=== PATIENT | male | born 1945 | race Two or more races ===

== ENCOUNTER 2020-05-11 09:34 | Outpatient (REF) | payer MEDICARE, SELFPAY ==
[2020-05-11 10:48] LABS: Basophils Percent Auto 0.6 % (0-2); Eosinophils Absolute Auto 0.1 X10*3/uL (0.0-0.4); Eosinophils Percent Auto 1.3 % (0-4); Hematocrit 40.2 % (42-52); Imm Gran Abs Auto 0.02 X10*3/uL (0.00-0.03); Imm Gran Pct Auto 0.3 % (0.0-0.4); Lymphocytes Percent Auto 28.1 % (20-40); MANUAL DIFF FLAG NO; Mean Corpuscular HGB Conc 32.3 g/dl (31.0-36.0); Mean Corpuscular Hemoglobin 28.3 pg (27.0-33.0); Mean Corpuscular Volume 87.4 fL (80-98); Mean Platelet Volume 12.1 fL (9.4-12.4); Monocytes Absolute Auto 0.5 X10*3/uL (0.1-1.2); Monocytes Percent Auto 6.7 % (2-11); Neutrophils Absolute Auto 4.5 X10*3/uL (2.0-8.3); Platelet Count 221 X10*3/uL (160-400); Red Cell Distribution Width 13.5 % (11.0-16.0); White Blood Count 7.1 X10*3/uL (4.8-10.8)
[2020-05-11 11:18] LABS: Alanine Aminotransferase 19 U/L (0-40); Albumin Level 4.3 g/dL (3.5-5.0); Alkaline Phosphatase 89 U/L (39-117); Anion Gap 13 (12-20); Aspartate Amino Transferase 16 U/L (5-37); Bilirubin Total 0.8 mg/dL (0.0-1.0); Blood Urea Nitrogen 19 mg/dL (9-16); Carbon Dioxide 26 mmol/L (22-29); Chloride 109 mmol/L (96-108); Cholesterol 123 mg/dL; Estimated Glomerular Filt Rate > 60; Glucose Fasting 108 mg/dL (60-99); HDL Cholesterol 39 mg/dL; LDL Cholesterol Calculated 73 mg/dl; Potassium 4.8 mmol/L (3.3-5.1); Sodium 143 mmol/L (135-145); Total Protein 6.8 g/dL (6.5-8.0); Triglycerides 55 mg/dL
[2020-05-11 11:31] LABS: Thyroid Stimulating Hormone 1.36 uIU/mL (0.32-4.0)
[2020-05-11 11:36] LABS: Estimated Average Glucose 134 mg/dL; Hemoglobin A1c % 6.3 %
== END 2020-05-11 09:35 | disposition home or self-care (01) ==
LOC: HO.LAB 09:34
PROVIDERS: PCP Internal Medicine; Visit Provider Internal Medicine
DX: Z00.00 Encounter for general adult medical examination without abnormal findings (principal); E11.9 Type 2 diabetes mellitus without complications; E03.9 Hypothyroidism, unspecified
CPT/HCPCS: 36415; 80053; 80061; 83036; 84443; 85025

== ENCOUNTER 2021-02-11 09:51 | Outpatient (REF) | payer MEDICARE, SELFPAY ==
[2021-02-11 11:01] LABS: Estimated Average Glucose 143 mg/dL; Hemoglobin A1c % 6.6 %; Total Hemoglobin (HGBA1C) 3398.5007 umol/L
[2021-02-11 11:10] LABS: Cholesterol 152 mg/dL; Glucose Fasting 120 mg/dL (60-99); HDL Cholesterol 37 mg/dL; LDL Cholesterol Calculated 89 mg/dl; Triglycerides 134 mg/dL
== END 2021-02-11 09:52 | disposition home or self-care (01) ==
LOC: HO.LAB 09:51
PROVIDERS: PCP Internal Medicine; Visit Provider Internal Medicine
DX: R73.9 Hyperglycemia, unspecified (principal); E11.9 Type 2 diabetes mellitus without complications
CPT/HCPCS: 36415; 80061; 82947; 83036

== ENCOUNTER 2022-03-07 10:15 | Outpatient (REF) | payer MEDICARE, SELFPAY ==
[2022-03-07 11:09] LABS: Estimated Average Glucose 134 mg/dL; Hemoglobin A1c % 6.3 %
[2022-03-07 11:24] LABS: Cholesterol 134 mg/dL; Glucose Fasting 113 mg/dL (60-99); HDL Cholesterol 38 mg/dL; LDL Cholesterol Calculated 81 mg/dl; Triglycerides 75 mg/dL
== END 2022-03-07 10:16 | disposition home or self-care (01) ==
LOC: HO.LAB 10:15
PROVIDERS: PCP Internal Medicine; Visit Provider Internal Medicine
DX: E78.5 Hyperlipidemia, unspecified (principal); E11.65 Type 2 diabetes mellitus with hyperglycemia
CPT/HCPCS: 36415; 80061; 82947; 83036

== ENCOUNTER 2022-06-12 13:20 | Outpatient (REF) | payer MEDICARE, SELFPAY ==
--- NOTE | 2022-06-12 09:00 | EMG_ITS ---
Right median and ulnar motor and sensory studies were obtained. Right radial and sensory study was obtained, and paraspinal muscles were tested with a needle. IMPRESSION: 1. 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 2. Moderate right ulnar neuropathy across cubital tunnel. MD FRANSISCO Barreto/JESUS MANUEL / [phone]
== END 2022-06-12 13:21 | disposition home or self-care (01) ==
LOC: HO.NEURO 13:20
PROVIDERS: PCP Internal Medicine; Visit Provider Internal Medicine
DX: G56.01 Carpal tunnel syndrome, right upper limb (principal)
CPT/HCPCS: 95886; 95909

== ENCOUNTER → 2022-08-12 14:00 | Outpatient (BNVA) | payer MEDICARE, SELFPAY | PROVIDERS: PCP Internal Medicine; Visit Provider Orthopaedic Surgery | DX: G56.01 Carpal tunnel syndrome, right upper limb (principal) | CPT/HCPCS: 99202 ==

== ENCOUNTER → 2022-08-19 09:10 | Outpatient (BNVA) | payer MEDICARE, SELFPAY | PROVIDERS: PCP Internal Medicine; Visit Provider Dietitian, Registered | DX: E11.9 Type 2 diabetes mellitus without complications (principal) | CPT/HCPCS: 97802 ==

== ENCOUNTER 2022-08-22 09:20 | Outpatient (REF) | payer MEDICARE, SELFPAY ==
[2022-08-22 09:39] LABS: MANUAL DIFF FLAG NO
[2022-08-22 09:51] LABS: Basophils Percent Auto 0.6 % (0-2); Eosinophils Absolute Auto 0.1 X10*3/uL (0.0-0.4); Eosinophils Percent Auto 1.2 % (0-4); Hematocrit 42.4 % (42.0-52.0); Hemoglobin 13.8 g/dl (14.0-18.0); Imm Gran Abs Auto 0.01 X10*3/uL (0.00-0.03); Imm Gran Pct Auto 0.1 % (0.0-0.4); Lymphocytes Absolute Auto 1.8 X10*3/uL (1.2-4.9); Lymphocytes Percent Auto 26.7 % (20-40); Mean Corpuscular HGB Conc 32.5 g/dl (31.0-36.0); Mean Platelet Volume 11.4 fL (9.4-12.4); Monocytes Absolute Auto 0.5 X10*3/uL (0.1-1.2); Monocytes Percent Auto 7.8 % (2-11); Neutrophils Absolute Auto 4.2 x10*3/uL (2.0-8.3); Neutrophils Percent Auto 63.6 % (45-73); Platelet Count 213 X10*3/uL (160-400); Red Blood Count 4.93 X10*6/uL (4.60-5.80); White Blood Count 6.7 X10*3/uL (4.8-10.8)
[2022-08-22 10:20] LABS: Alanine Aminotransferase 21 U/L (0-40); Albumin Level 4.2 g/dL (3.5-5.0); Alkaline Phosphatase 80 U/L (39-117); Anion Gap 12 (12-20); Aspartate Amino Transferase 16 U/L (5-37); Bilirubin Total 0.9 mg/dL (0.0-1.0); Blood Urea Nitrogen 14 mg/dL (9-16); Calcium 9.3 mg/dL (8.4-10.2); Carbon Dioxide 26 mmol/L (22-29); Chloride 108 mmol/L (96-108); Cholesterol 136 mg/dL; Estimated Glomerular Filt Rate > 60; Glucose Fasting 129 mg/dL (60-99); HDL Cholesterol 36 mg/dL; LDL Cholesterol Calculated 80 mg/dl; Potassium 4.7 mmol/L (3.3-5.1); Sodium 141 mmol/L (135-145); Total Protein 6.7 g/dL (6.5-8.0); Triglycerides 103 mg/dL
== END 2022-08-22 09:21 | disposition home or self-care (01) ==
LOC: HO.LAB 09:20
PROVIDERS: PCP Internal Medicine; Visit Provider Internal Medicine
DX: Z13.0 Encounter for screening for diseases of the blood and blood-forming organs and certain disorders involving the immune mechanism (principal); E78.5 Hyperlipidemia, unspecified; I10 Essential (primary) hypertension
CPT/HCPCS: 36415; 80053; 80061; 85025

== ENCOUNTER 2022-08-28 10:08 | Day surgery (SDC) | payer MEDICARE, SELFPAY ==
--- NOTE | 2022-08-28 09:59 | W.PM.OPN ---
Operative Note Operative Note Date of Service: 08/28/22 Narrative: Preop diagnosis: 1. Right Carpal tunnel syndrome Postop diagnosis: same Procedure: 1. Right Carpal tunnel release Surgeon: Shruthi Cervantes MD Anesthesia: local block using 1% lidocaine with epinephrine Findings: Thickened transverse carpal ligament. EBL: Less than 5 mL Specimens: None Complications: None Disposition: Brought to recovery room in stable condition Plan: Follow-up for 10-14 days for wound check and suture removal Indications: The patient is 77 years old, with right carpal tunnel syndrome that has been unresponsive to nonoperative management. The risks and benefits of operative treatment including but not limited to risk of damage to blood vessels, nerves, tendons, infection, persistent pain, persistent symptoms, or possible need for additional surgery were discussed with the patient and the patient wishes to proceed with surgery. Procedure: Once consent was obtained a local block was performed using a combination of 1% lidocaine with epinephrine. The patient was then brought back to the operating suite and placed on the operative table in supine position. The right upper extremity was prepped and draped in a standard surgical fashion. Once assured that we had a good block, a 2.0 cm longitudinal incision was made centered over the carpal tunnel. The incision was made through the skin to the subcutaneous tissues using a #15 blade. Dissection was made down to the level of the transverse carpal ligament with care being taken to protect the palmar cutaneous nerve. Once the transverse carpal ligament was clearly visualized, a longitudinal incision was made in the transverse carpal ligament 1st using a #15 blade, then using tenotomy scissors under direct visualization. Care was taken to look for and protect the motor branch of the median nerve when seen in this area. Once satisfied with our carpal tunnel release the wound was copiously irrigated with normal saline and hemostasis was obtained with a brief period of local pressure. The skin edges were reapproximated with some 5.0 nylon suture material and a sterile dressing was applied. The patient appears to have tolerated the procedure well and with no complications. All digits were well vascularized at the conclusion of the case.
[2022-08-28 10:32] VITALS: BMI 31.7
[2022-08-28 10:39] VITALS: BP 149/61; PULSE 65; RESP 18; TEMP 36.7; O2SAT 96
--- NOTE | 2022-08-28 13:21 | MHC.SHP ---
Pre-Procedural Eval Section A Date of Service: 08/28/22 The patient is an INPATIENT: No Changes since office visit: No Cold of Flu in the past 2 weeks, No New Medical Problems, No Changes in Medication and No Patient answered all questions The History & Physical has been completed within 30 days and I have reviewed it.: Yes Section B Chief Complaint: Carpal tunnel syndrome, right upper limb Allergies: Allergies Allergy/AdvReac Type Severity Reaction Status Date / Time No Known Allergies Allergy Verified 05/09/22 13:53 Plan I have reviewed the history and physical and performed a pertinent physical examination on my patient. No changes have occurred unless specified. Time Spent With Patient Time: Total time managing care of this patient today ____ minutes.
== END 2022-08-28 14:01 | disposition home or self-care (01) ==
PROVIDERS: PCP Internal Medicine; Visit Provider Orthopaedic Surgery
PROC: (CPT 64721; principal; 2022-08-28 11:40)
DX: G56.01 Carpal tunnel syndrome, right upper limb (principal); R20.0 Anesthesia of skin; R20.2 Paresthesia of skin; E11.9 Type 2 diabetes mellitus without complications; E78.5 Hyperlipidemia, unspecified; I10 Essential (primary) hypertension
CPT/HCPCS: 64721; J0171

== ENCOUNTER → 2022-09-12 08:49 | Outpatient (BNVA) | payer MEDICARE, SELFPAY | PROVIDERS: PCP Internal Medicine; Visit Provider Physician Assistant | DX: Z48.811 Encounter for surgical aftercare following surgery on the nervous system (principal) | CPT/HCPCS: 99212 ==

== ENCOUNTER 2023-01-14 08:41 | Outpatient (AMB) | payer MEDICARE, SELFPAY ==
--- NOTE | 2023-01-14 08:43 | MHC.OFFVIS ---
Intake Vital Signs 01/14/23 08:53 Height 6 ft 1 in Weight 244 lb BMI 32.2 Intake Visit Reasons: OV-R CTR 08/28/22 AR-Follow up Intake Note: Yemi 77 yr old resents today for his S/P Right CTR 08/28/22 AR. States he continues to have some numbness and is also waking up with his left hand numb. EMG done only in right hand. Allergies No Known Allergies Allergy (Verified 01/14/23 08:53) HPI OV-R CTR 08/28/22 AR-Follow up HPI Details Yemi is a 77 year old right hand dominant man who presents with complaints of left hand numbness. He is S/P right carpal tunnel release, DOS: 08/28/22. He complains of numbness in the median nerve distribution of his left hand. Symptoms began ~2 weeks ago and occurring primarily at night and first thing in the mornings. He is worried if he is developing carpal tunnel in this hand At his initial appointment with me on 08/12/22 he complained only of right hand numbness, and a NCS, ordered by his PCP, was performed only on his right side showing both carpal & cubital tunnel syndrome. In regards to his right hand he says he still has numbness in the median nerve distribution, but he says it feels better overall , with no pain and good resolution of his nighttime symptoms. He had dense numbness prior to surgery as well as thenar atrophy. 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 Father No problems noted. Social History Housing: House Alcohol intake: current Alcohol intake frequency: a few times a week Patient Tobacco Use Status: Never used Tobacco e-Cigarette/Vaping Use: Never Used Second Hand Smoke Exposure: No service: No Current occupational status: employed and retired Cognitive needs: No Hearing needs: No Vision needs: No Review of Systems Const All systems reviewed & are unremarkable except as noted in HPI and below Physical Exam Vital Signs: BMI result Body Mass Index 32.2 Const General: cooperative, healthy appearing and no acute distress Orientation/consciousness: oriented to person and oriented to place HEENT Head: Yes normocephalic and Yes atraumatic Eyes EOM: EOMs intact bilaterally Resp Effort & Inspection: normal respiratory effort and able to speak in complete sentences Cardio Jugular venous distension: no JVD Skin General skin exam: turgor normal Rashes: no rashes Neuro General: oriented to person and oriented to place Extrem Other: Evaluation of Left Upper Extremity: The patient is alert, oriented, and in no acute distress Neuro: Median, Ulnar, Radial nerves motor and sensory intact and sensation is normal to the tips of all digits of the left hand No thenar or intrinsic wasting Good APB muscle belly firing and good finger cross Concerning the right side: he still has dense numbness in the median nerve destribution as well as thenar atrophy, though he says the sensation is somehow little better since surgery. Vascular: Cap refill brisk ROM: He can make a fist and extend all his digits No locking or catching Nerve conduction study: Impression: 1. 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 Moderate right ulnar neuropathy across cubital tunnel. Dr. Richard DOS 06/12/2022 Psych Appearance: grossly normal Affect: normal affect Attitude: cooperative Assessment & Plan Assessment & Plan (1) Carpal tunnel syndrome: Code(s): G56.00 - Carpal tunnel syndrome, unspecified upper limb (2) Cubital tunnel syndrome on right: Code(s): G56.21 - Lesion of ulnar nerve, right upper limb (3) Numbness and tingling in left hand: Code(s): R20.0 - Anesthesia of skin; R20.2 - Paresthesia of skin (4) Diabetes mellitus: Code(s): E11.9 - Type 2 diabetes mellitus without complications Plan Assessment and plan: 1. Left hand numbness In the median nerve distribution Symptoms intermittent, but daily, primarily at night I ordered a NCS to assess for possible carpal tunnel syndrome He will follow up when completed for review 2. Right carpal tunnel syndrome, S/P release DOS: 08/28/22 Pre-operatively with dense numbness and thenar atrophy Now with dense numbness, slightly improved, with good resolution of his nighttime symptoms 3. Right cubital tunnel syndrome, moderate Patient denies having any symptoms of numbness and tingling in his ulnar nerve distribution Good finger cross no intrinsic wasting Scribed for Shruthi Cervantes MD by Da Pierre, medical manager, on 01/14/23 at 9:15 AM, EST. Orders: Orders NE nerve conduction velocity Today R20.0 - Anesthesia of skin, R20.2 - Paresthesia of skin Coding Level of Care Code Est Pt Level 3 (18973) Diagnoses Carpal tunnel syndrome G56.00 Cubital tunnel syndrome on right G56.21 Numbness and tingling in left hand R20.0; R20.2 Diabetes mellitus E11.9
[2023-01-14 08:53] VITALS: BMI 32.2
== END 2023-01-14 09:17 | disposition home or self-care (01) ==
PROVIDERS: PCP Internal Medicine; Visit Provider Orthopaedic Surgery
DX: G56.00 Carpal tunnel syndrome, unspecified upper limb (principal); G56.21 Lesion of ulnar nerve, right upper limb; R20.0 Anesthesia of skin; R20.2 Paresthesia of skin
CPT/HCPCS: 99213

== ENCOUNTER → 2023-01-14 08:41 | Outpatient (BNVA) | payer MEDICARE, SELFPAY | PROVIDERS: PCP Internal Medicine; Visit Provider Orthopaedic Surgery | DX: G56.00 Carpal tunnel syndrome, unspecified upper limb (principal); G56.21 Lesion of ulnar nerve, right upper limb; R20.0 Anesthesia of skin; R20.2 Paresthesia of skin; E11.9 Type 2 diabetes mellitus without complications | CPT/HCPCS: 99212 ==

== ENCOUNTER 2023-03-13 12:58 | Outpatient (AMB) | payer MEDICARE, SELFPAY ==
[2023-03-13 13:00] VITALS: BP 140/62; PULSE 64; O2SAT 99; BMI 32.2
--- NOTE | 2023-03-13 13:00 | MHC.PC.OV ---
Vital Signs 03/13/23 13:00 Height 6 ft 1 in Weight 244 lb BMI 32.2 BP 140/62 H Blood Pressure Location Lt brachial Position Sitting Pulse 64 Pulse Source Pulse Oximeter Pulse Oximetry (%) 99 Oxygen Delivery Method Room Air Intake Visit Reasons: physical Career Development Specialist Required: No Drafting Engineer: Not Required per policy Accompanied by: Self / Same As Patient Allergies No Known Allergies Allergy (Verified 03/13/23 13:01) Medication List - Last Reconciled 03/13/23 by Herbert Cabello MD alcohol swabs 0 pad topical DAILY aspirin (Adult Low Dose Aspirin) 81 mg PO DAILY atorvastatin 80 mg PO DAILY blood sugar diagnostic ([employer] Verio test strips) Use to check blood sugars once a day blood-glucose meter ([employer] Verio Meter) Use to check blood sugars once daily lancets ([employer] Delica Lancets) Use to check blood sugars once a day lisinopril 40 mg PO DAILY metformin ER 500 mg PO QPM oxycodone 5 mg PO Q6H PRN Tobacco use date assessed: 05/09/22 Fall risk assessment: No Falls in past year Last assessed Fall Risk: 03/13/23 Dental Screening Dental Screen Date: 03/13/23 Did you have a dental visit in the last 12 months?: No Did you have a dental problem in the last 6 months where you did not have access to dental care?: No Was dental information given to patient?: Patient has dentist HPI physical HPI Details DM HTN and hyperlip; stable on rx; due for labs PFSH Medical History Diabetes mellitus Hyperlipidemia Hypertension Surgical History History of ankle surgery Family History Mother No problems noted. Father No problems noted. Social History Housing: House Alcohol intake: current Alcohol intake frequency: a few times a week Patient Tobacco Use Status: Never used Tobacco e-Cigarette/Vaping Use: Never Used Second Hand Smoke Exposure: No service: No Current occupational status: employed and retired Cognitive needs: No Hearing needs: No Vision needs: Yes Questionnaire Thrive Questionnaire Date Thrive assessed: 05/09/22 MUKESH-7 AMB Questionnaire MUKESH-7 Date MUKESH - 7 assessed: 05/09/22 Source: Developed by Drs. Cem Garg, Brionna Garcia, Parish Rowe and colleagues, with an educational rah from [employer]. Review of Systems Const Denies chills, Denies fatigue, Denies headache(s) and Denies weight loss Eyes Denies change in vision, Denies diplopia and Denies eye pain ENT Denies vertigo, Denies dizziness, Denies headache(s) and Denies nasal discharge Card Denies chest pain, Denies rapid heart rate and Denies dyspnea on exertion Resp Denies chest congestion, Denies cough, Denies pain with cough and Denies dyspnea on exertion GI Denies abdominal pain, Denies hematochezia and Denies change in bowel habits Musc Denies myalgias, Denies arthralgias and Denies joint swelling Skin/Breast Denies lesions and Denies unusual bruising Neuro Denies vertigo, Denies dizziness, Denies headache(s) and Denies focal weakness Endo Denies fatigue Physical exam (Primary Care) Vital Signs: Last Vital Signs Pulse 64 03/13/23 13:00 BP 140/62 H 03/13/23 13:00 Pulse Ox 99 03/13/23 13:00 Oxygen Delivery Method Room Air 03/13/23 13:00 BMI result Body Mass Index 32.2 Tobacco/Smoking Status: Tobacco use Status Tobacco use date assessed 05/09/22 03/13/23 13:04 Patient Tobacco Use Status Never used Tobacco 03/13/23 13:04 e-Cigarette/Vaping Use Never Used 03/13/23 13:04 Thrive Assessment: Date of Thrive Assessment Date Thrive assessed 05/09/22 03/13/23 13:04 Advance Care Planning discussion: On file, no changes Forms completed: Health Care Proxy Const General: cooperative, healthy appearing and no acute distress Orientation/consciousness: oriented to person, oriented to place and oriented to time [facility] Head: Yes normal to inspection, Yes normocephalic and Yes atraumatic Mouth: Normal oral and palatal mucosa present and tongue normal Throat: Yes posterior oropharynx normal and Yes uvula midline Eyes General: appearance normal, both eyes and all related structures Neck Neck: Yes normal visual inspection, Yes full ROM and Yes no lymphadenopathy Thyroid: Thyroid normal Carotids: normal carotid upstroke Chest Chest palpation & inspection: normal inspection of the chest Resp Effort & Inspection: normal respiratory effort and able to speak in complete sentences Auscultation: clear to auscultation bilaterally Cardio Jugular venous distension: no JVD Palpation: normal PMI Rate: regular rate Rhythm: regular rhythm Heart sounds: S1 normal heart sound present and S2 normal heart sound present GI Inspection: Yes normal to inspection Palpation (GI): Soft to palpation and No hepatosplenomegaly present Auscultation: normal bowel sounds General: Yes no CVA tenderness Back/Spine/Pelvis Back: no CVA tenderness Skin General skin exam: no rashes or lesions noted Neuro General: oriented to person, oriented to place and oriented to time Extrem General: Yes normal to inspection and Yes full ROM Results AMB Hemoglobin A1c AMB Hemoglobin A1c 6.7 % Last Edit by FLOYD Beltran on 03/13/23 13:16 Results Reviewed Results Reviewed: Laboratory Last Values Hgb A1c (Clinic) 6.7 % (4.0-6.0) H 03/13/23 13:14 Assessment and Plan Assessment & Plan (1) Diabetes mellitus with coincident hypertension: Code(s): E11.9 - Type 2 diabetes mellitus without complications; I10 - Essential (primary) hypertension Plan: stable; same rx; do labs (2) Physical exam: Code(s): Z00.00 - Encounter for general adult medical examination without abnormal findings Plan: stable (3) Hyperlipidemia: Code(s): E78.5 - Hyperlipidemia, unspecified Plan: stable; same rx (4) Hypertension: Code(s): I10 - Essential (primary) hypertension Plan: stable; same rx Orders: Orders AMB Hemoglobin A1c Today E11.9 - Type 2 diabetes mellitus without complications, I10 - Essential (primary) hypertension Coding Level of Care Code Est Pt Prev Care >65y(21422) Diagnoses Diabetes mellitus with coincident hypertension E11.9; I10 Physical exam Z00.00 Hyperlipidemia E78.5 Hypertension I10 Additional Codes Vital Signs *Quality* - Advance Care Planning discussion: On file, no changes ([id number])
== END 2023-03-13 13:25 | disposition home or self-care (01) ==
PROVIDERS: PCP Internal Medicine; Visit Provider Internal Medicine
DX: E11.9 Type 2 diabetes mellitus without complications (principal); I10 Essential (primary) hypertension; Z00.00 Encounter for general adult medical examination without abnormal findings; E78.5 Hyperlipidemia, unspecified
CPT/HCPCS: 1123F; 83036; 99397

== ENCOUNTER 2023-05-01 10:25 | Outpatient (REF) | payer MEDICARE, SELFPAY ==
--- NOTE | 2023-05-01 10:28 | EMG_ITS ---
Chief complaint: Numbness left digits 1 and 2 only when waking up in the morning s/p right CTR, 08/28/22 Reason for referral: Evaluate for Carpal Tunnel Syndrome Referred by: Dr. Cervantes Procedure done: Left upper extremity NCS/EMG Precautions and/or limitations: None The limb temperature was monitored continuously and remained between 32-36 degrees C during the performance of the NCS. Nerve Conduction Studies Anti Sensory Summary Table ?Stim Site NR Onset (ms) Norm Onset (ms) Peak (ms) Norm Peak (ms) O-P Amp (?V) Norm O-P Amp Site1 Site2 Delta-0 (ms) Dist (cm) Rehan (m/s) Norm Rehan (m/s) Left Median Anti Sensory (2nd Digit) Wrist ? 3.3 4.1 <3.6 12.4 >10 Wrist 2nd Digit 3.3 14.0 42 Left Radial Anti Sensory (Thumb) Forearm ? 2.0 2.6 <3.1 1.3 Forearm Thumb 2.0 0.0 Left Ulnar Anti Sensory (5th Digit) Wrist ? 2.7 3.3 <3.7 5.3 >15.0 Wrist 5th Digit 2.7 14.0 52 Motor Summary Table ?Stim Site NR Onset (ms) Norm Onset (ms) O-P Amp (mV) Norm O-P Amp iAmp (mV) Amp (1st) (%) Site1 Site2 Delta-0 (ms) Dist (cm) Rehan (m/s) Norm Rehan (m/s) Left Median Motor (Abd Poll Brev) Wrist ? 5.0 <3.9 3.9 >4.5 4.5 100.0 Elbow Wrist 4.6 23.0 50 >45 Elbow ? 9.6 3.5 4.5 89.7 Left Ulnar Motor (Abd Dig Minimi) Wrist ? 2.9 <3.0 7.5 >5 10.3 100.0 B Elbow Wrist 4.4 21.0 48 >45 B Elbow ? 7.3 6.7 9.6 89.3 A Elbow B Elbow 1.8 10.0 56 >45 A Elbow ? 9.1 6.1 9.0 81.3 EMG ?Side Muscle Nerve Root Ins Act Fibs Psw Amp Dur Poly Recrt Int Pat Comment Left 1stDorInt Ulnar C8-T1 Nml Nml Nml Nml Nml 0 Nml Complete Left FlexCarRad Median C6-7 Nml Nml Nml Nml Nml 0 Nml Complete Left Biceps Musculocut C5-6 Nml Nml Nml Nml Nml 0 Nml Complete Left Triceps Radial C6-7-8 Nml Nml Nml Nml Nml 0 Nml Complete Left Deltoid Axillary C5-6 Nml Nml Nml Nml Nml 0 Nml Complete FINDINGS: Left median motor nerve showed prolonged distal latency, small amplitude and normal conduction velocity. Left median sensory nerve showed prolonged peak latency. All other nerves tested were within normal. Concentric needle EMG was performed in selected muscles of the left upper extremity. Study did not reveal signs of electric abnormalities as shown in the table below. IMPRESSION: 1. This is an abnormal study. 2. There is electrodiagnostic evidence for left moderate-severe median neuropathy at the wrist, consistent with carpal tunnel syndrome. 3. There is no electrodiagnostic evidence for ulnar neuropathy, brachial plexopathy, or cervical radiculopathy. Thank you for your kind referral. Nubia Mancuso MD, BERTHA Board Certified, [place] [employer] and Rehabilitation (ABPMR) Board Certified, [place] Board of Electrodiagnostic Medicine (ABEM) CODIN [id number] MTDD
== END 2023-05-01 10:26 | disposition home or self-care (01) ==
LOC: HO.NEURO 10:25
PROVIDERS: PCP Internal Medicine; Visit Provider Orthopaedic Surgery
DX: R20.0 Anesthesia of skin (principal); R20.2 Paresthesia of skin
CPT/HCPCS: 95886; 95909

== ENCOUNTER → 2023-05-01 10:28 | Outpatient (BNV) | payer MEDICARE, SELFPAY | PROVIDERS: PCP Internal Medicine; Visit Provider Physical Medicine & Rehabilitation | DX: G56.02 Carpal tunnel syndrome, left upper limb (principal); G56.12 Other lesions of median nerve, left upper limb | CPT/HCPCS: 95886; 95909 ==

== ENCOUNTER 2023-09-11 08:59 | Outpatient (REF) | payer MEDICARE, SELFPAY ==
[2023-09-11 09:50] LABS: Estimated Average Glucose 140 mg/dL; Hemoglobin A1c % 6.5 % (<6.0)
[2023-09-11 10:07] LABS: Glucose Fasting 123 mg/dL (60-99)
== END 2023-09-11 09:00 | disposition home or self-care (01) ==
LOC: HO.LAB 08:59
PROVIDERS: PCP Internal Medicine; Visit Provider Internal Medicine
DX: R73.9 Hyperglycemia, unspecified (principal)
CPT/HCPCS: 36415; 82947; 83036

== ENCOUNTER 2023-09-18 10:39 | Outpatient (AMB) | payer MEDICARE, SELFPAY ==
[2023-09-18 10:40] VITALS: BP 130/72; PULSE 74; O2SAT 96; BMI 31.8
--- NOTE | 2023-09-18 10:40 | MHC.PC.OV ---
Vital Signs 09/18/23 10:40 Height 6 ft 1 in Weight 241 lb BMI 31.8 BP 130/72 Blood Pressure Location Lt brachial Position Sitting Pulse 74 Pulse Source Pulse Oximeter Pulse Oximetry (%) 96 Oxygen Delivery Method Room Air Intake Visit Reasons: 6mth f/u - needs urine microalbumin/creat ration Quarantine Inspector Required: No Allergies No Known Allergies Allergy (Verified 09/18/23 10:41) Medication List - Last Reconciled 09/21/23 by Herbert Cabello MD alcohol swabs 0 pad topical DAILY aspirin (Adult Low Dose Aspirin) 81 mg PO DAILY atorvastatin 80 mg PO DAILY blood sugar diagnostic ([employer] Verio test strips) Use to check blood sugars once a day blood-glucose meter ([employer] Verio Meter) Use to check blood sugars once daily lancets ([employer] Delica Lancets) Use to check blood sugars once a day lisinopril 40 mg PO DAILY metformin ER 500 mg PO QPM oxycodone 5 mg PO Q6H PRN Tobacco use date assessed: 09/18/23 Fall risk assessment: No Falls in past year Last assessed Fall Risk: 09/18/23 Dental Screening Dental Screen Date: 09/18/23 HPI 6mth f/u - needs urine microalbumin/creat ration HPI Details DM hypertension and hyperlipidemia; stable; due for labs [facility] Medical History Diabetes mellitus Hyperlipidemia Hypertension Surgical History History of ankle surgery Family History Mother No problems noted. Father No problems noted. Social History Housing: House Alcohol intake: current Alcohol intake frequency: a few times a week Patient Tobacco Use Status: Never used Tobacco e-Cigarette/Vaping Use: Never Used Second Hand Smoke Exposure: No service: No Current occupational status: employed and retired Cognitive needs: No Hearing needs: No Vision needs: Yes Questionnaire Thrive Questionnaire Date Thrive assessed: 05/09/22 AUDIT C Alcohol Use Questionnaire (AUDIT-C) 1. How often do you have a drink containing alcohol?: 2-3 times a week 2. How many drinks containing alcohol do you have on a typical day when you are drinking?: 1 or 2 3. How often do you have six or more drinks on one occasion?: Never Total Score: 3 Score Reviewed/Action Taken: Yes MUKESH-7 AMB Questionnaire MUKESH-7 Date MUKESH - 7 assessed: 09/18/23 Source: Developed by Drs. Cem Garg, Brionna Garcia, Parish Rowe and colleagues, with an educational rah from [employer]. Review of Systems Const Denies chills, Denies headache(s) and Denies weight loss ENT Denies headache(s) Card Denies chest pain, Denies syncope, Denies irregular heart rhythm and Denies dyspnea Resp Denies chest congestion, Denies cough and Denies dyspnea GI Denies abdominal pain, Denies change in stool character, Denies nausea and Denies vomiting Musc Denies deformity and Denies joint swelling Neuro Denies syncope and Denies headache(s) Physical exam (Primary Care) Vital Signs: Last Vital Signs Pulse 74 09/18/23 10:40 BP 130/72 09/18/23 10:40 Pulse Ox 96 09/18/23 10:40 Oxygen Delivery Method Room Air 09/18/23 10:40 BMI result Body Mass Index 31.8 Tobacco/Smoking Status: Tobacco use Status Tobacco use date assessed 09/18/23 09/18/23 10:41 Patient Tobacco Use Status Never used Tobacco 09/18/23 10:41 e-Cigarette/Vaping Use Never Used 09/18/23 10:41 Thrive Assessment: Date of Thrive Assessment Date Thrive assessed 05/09/22 09/18/23 10:41 Const General: cooperative, comfortable, no acute distress and alert Neck Neck: Yes no lymphadenopathy Thyroid: Thyroid normal Resp Effort & Inspection: normal respiratory effort Auscultation: clear to auscultation bilaterally Percussion: percussion normal Cardio Jugular venous distension: no JVD Palpation: normal PMI Rate: regular rate Rhythm: regular rhythm Heart sounds: S1 normal heart sound present and S2 normal heart sound present GI Inspection: Yes normal to inspection Palpation (GI): No hepatosplenomegaly present Skin General skin exam: no rashes or lesions noted Extrem General: Yes no clubbing, cyanosis or edema Assessment and Plan Assessment & Plan (1) Diabetes mellitus with coincident hypertension: Code(s): E11.9 - Type 2 diabetes mellitus without complications; I10 - Essential (primary) hypertension Plan: stable; do labs (2) Hyperlipidemia: Code(s): E78.5 - Hyperlipidemia, unspecified Plan: stable; same rx (3) Hypertension: Code(s): I10 - Essential (primary) hypertension Plan: stable; same rx Orders: Orders Lipid Panel 09/18/23 Z13.220 - Encounter for screening for lipoid disorders Uric Acid 09/18/23 M10.9 - Gout, unspecified Microalbumin, Random (w Creat) 09/18/23 E11.69 - Type 2 diabetes mellitus with other specified complication, E66.01 - Morbid (severe) obesity due to excess calories Comprehensive [place]. Panel Fast 09/18/23 Z13.9 - Encounter for screening, unspecified Complete Blood Count Auto Diff 09/18/23 Z13.0 - Encounter for screening for diseases of the blood and blood-forming organs and certain disorders involving the immune mechanism Hemoglobin A1c 09/18/23 R73.9 - Hyperglycemia, unspecified Coding Level of Care Code Est Pt Level 4 (72579) Diagnoses Diabetes mellitus with coincident hypertension E11.9; I10 Hyperlipidemia E78.5 Hypertension I10
== END 2023-09-18 10:53 | disposition home or self-care (01) ==
PROVIDERS: PCP Internal Medicine; Visit Provider Internal Medicine
DX: E11.9 Type 2 diabetes mellitus without complications (principal); I10 Essential (primary) hypertension; E78.5 Hyperlipidemia, unspecified
CPT/HCPCS: 99214

== ENCOUNTER 2024-02-19 08:13 | Outpatient (REF) | payer MEDICARE, SELFPAY ==
[2024-02-19 08:35] LABS: MANUAL DIFF FLAG NO
[2024-02-19 08:48] LABS: Basophils Percent Auto 0.5 % (0-2); Eosinophils Absolute Auto 0.1 X10*3/uL (0.0-0.4); Hematocrit 42.7 % (42.0-52.0); Hemoglobin 14.5 g/dl (14.0-18.0); Imm Gran Abs Auto 0.02 X10*3/uL (0.00-0.03); Imm Gran Pct Auto 0.2 % (0.0-0.4); Lymphocytes Absolute Auto 1.9 X10*3/uL (1.2-4.9); Lymphocytes Percent Auto 21.8 % (20-40); Mean Corpuscular Hemoglobin 28.7 pg (27.0-33.0); Mean Corpuscular Volume 84.6 fL (80.0-98.0); Mean Platelet Volume 11.6 fL (9.4-12.4); Monocytes Absolute Auto 0.5 X10*3/uL (0.1-1.2); Monocytes Percent Auto 5.6 % (2-11); Neutrophils Absolute Auto 6.1 x10*3/uL (2.0-8.3); Neutrophils Percent Auto 70.9 % (45-73); Platelet Count 228 X10*3/uL (160-400); Red Blood Count 5.05 X10*6/uL (4.60-5.80); Red Cell Distribution Width 14.4 % (11.0-16.0); White Blood Count 8.6 X10*3/uL (4.8-10.8)
[2024-02-19 09:06] LABS: Estimated Average Glucose 131 mg/dL; Hemoglobin A1C 164.1681 umol/L; Hemoglobin A1c % 6.2 % (<6.0); Total Hemoglobin (HGBA1C) 3666.4091 umol/L
[2024-02-19 09:14] LABS: Alanine Aminotransferase 22 U/L (0-40); Albumin Level 4.1 g/dL (3.5-5.0); Alkaline Phosphatase 77 U/L (39-117); Anion Gap 11 (12-20); Aspartate Amino Transferase 23 U/L (5-37); Bilirubin Total 0.9 mg/dL (0.0-1.0); Blood Urea Nitrogen 16 mg/dL (9-16); Carbon Dioxide 23 mmol/L (22-29); Chloride 109 mmol/L (96-108); Cholesterol 120 mg/dL (<200); Estimated Glomerular Filt Rate 58; Glucose Fasting 115 mg/dL (60-99); HDL Cholesterol 39 mg/dL (>40); LDL Cholesterol Calculated 66 mg/dL (<100); Potassium 4.2 mmol/L (3.3-5.1); Sodium 139 mmol/L (135-145); Total Protein 6.6 g/dL (6.5-8.0); Triglycerides 75 mg/dL (<150)
[2024-02-19 09:44] LABS: Uric Acid 7.5 mg/dL (3.4-7.0)
[2024-02-19 10:01] LABS: Creatinine Urine 78.53 mg/dL; Microalbumin Urine < 5.0 mg/L
== END 2024-02-19 08:14 | disposition home or self-care (01) ==
LOC: HO.LAB 08:13
PROVIDERS: PCP Internal Medicine; Visit Provider Internal Medicine
DX: E11.69 Type 2 diabetes mellitus with other specified complication (principal); E66.01 Morbid (severe) obesity due to excess calories; R73.9 Hyperglycemia, unspecified; Z13.220 Encounter for screening for lipoid disorders; M10.9 Gout, unspecified; Z13.9 Encounter for screening, unspecified; Z13.0 Encounter for screening for diseases of the blood and blood-forming organs and certain disorders involving the immune mechanism
CPT/HCPCS: 36415; 80053; 80061; 82043; 82570; 83036; 84550; 85025

== ENCOUNTER 2024-03-04 09:23 | Outpatient (AMB) | payer MEDICARE, SELFPAY ==
--- NOTE | 2024-03-04 09:26 | A.OFFPC_ITS ---
Vital Signs 03/04/24 09:28 Height 6 ft 1 in Weight 235 lb 2 oz BMI 31.0 BP 160/80 H Blood Pressure Location Lt brachial Position Sitting Pulse 63 Pulse Source Pulse Oximeter Pulse Oximetry (%) 98 Oxygen Delivery Method Room Air Intake Visit Reasons: 6 Month F/U Intake Note: Patient is here to follow up on DM, HTN, HLD. Senior Quality Analyst Required: No Senior Applications Architect: Not Required per policy Accompanied by: Self / Same As Patient Allergies No Known Allergies Allergy (Verified 03/04/24 09:28) Tobacco use date assessed: 03/04/24 Fall risk assessment: No Falls in past year Last assessed Fall Risk: 03/04/24 Dental Screening Dental Screen Date: 09/18/23 HPI 6 Month F/U HPI Details HTN and DM in good control; compliant [facility] Medical History Diabetes mellitus Hyperlipidemia Hypertension Surgical History History of ankle surgery Family History (Updated 03/04/24 @ 09:26 by FLOYD Ken) Mother No problems noted. Father No problems noted. 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 1. Little interest or pleasure in doing things: not at all 2. Feeling down, depressed, or hopeless: not at all 3. Trouble falling or staying asleep, or sleeping too much: not at all 4. Feeling tired or having little energy: not at all 5. Poor appetite or overeating: not at all 6. Feeling bad about yourself - or that you are a failure or have let yourself or your family down: not at all 7. Trouble concentrating on things, such as reading the newspaper or watching television: not at all 8. Moving or speaking so slowly that other people could have noticed. Or the opposite - being so fidgety or restless that you have been moving around a lot more than usual: not at all 9. Thoughts that you would be better off or of hurting yourself in some way: not at all Total score: 0 Depression Screening Interpretation: Negative Depression Screening Done: Yes Source: Developed by Drs. Cem Garg, Brionna Garcia, Parish Rowe and colleagues, with an educational rah from [employer]. Thrive Questionnaire Date Thrive assessed: 03/04/24 I am a: Patient What is your living situation today?: I have a steady place to live Within the past 12 months, did the food you bought not last and you didn't have the money to get more?: Never true Within the past 12 months, did you worry whether your food would run out before you got money to buy more?: Never true Do you have trouble paying for medicines?: No Do you have trouble getting transportation to medical appointments?: No Do you have trouble paying your heating and electricity bill?: No Do you have trouble taking care of your child, family member or friend?: No Do you have trouble with day-to-day activities such as bathing, preparing meals, shopping, managing finances, etc.?: No Are you currently unemployed and looking for a job?: No Are you interested in more education?: No Currently or been in a relationship where the following occur: No concerns reported THRIVE Score: 0 MUKESH-7 AMB Questionnaire MUKESH-7 Date MUKESH - 7 assessed: 09/18/23 Source: Developed by Drs. Cem Garg, Brionna Garcia, Parish Rowe and colleagues, with an educational rah from [employer]. Review of Systems Const Denies chills, Denies headache(s) and Denies weight loss ENT Denies headache(s) Card Denies chest pain, Denies syncope, Denies irregular heart rhythm and Denies dyspnea Resp Denies chest congestion, Denies cough and Denies dyspnea GI Denies abdominal pain, Denies change in stool character, Denies nausea and Denies vomiting Musc Denies deformity and Denies joint swelling Neuro Denies syncope and Denies headache(s) Physical exam (Primary Care) Vital Signs: Last Vital Signs Pulse 63 12/06/24 09:28 BP 160/80 H 03/04/24 09:28 Pulse Ox 98 03/04/24 09:28 Oxygen Delivery Method Room Air 03/04/24 09:28 BMI result Body Mass Index 31.0 Tobacco/Smoking Status: Tobacco use Status Tobacco use date assessed 03/04/24 03/04/24 09:33 Patient Tobacco Use Status Never used Tobacco 03/04/24 09:27 e-Cigarette/Vaping Use Never Used 03/04/24 09:27 PHQ-9: PHQ-9 Score PHQ-9: Total score 0 03/04/24 09:27 Depression Screening Interpretation: Negative Thrive Assessment: Date of Thrive Assessment Date Thrive assessed 03/04/24 03/04/24 09:27 Currently or been in a relationship where the following occur: No concerns reported Const General: cooperative, comfortable, no acute distress and alert Neck Neck: Yes no lymphadenopathy Thyroid: Thyroid normal Resp Effort & Inspection: normal respiratory effort Auscultation: clear to auscultation bilaterally Percussion: percussion normal Cardio Jugular venous distension: no JVD Palpation: normal PMI Rate: regular rate Rhythm: regular rhythm Heart sounds: S1 normal heart sound present and S2 normal heart sound present GI Inspection: Yes normal to inspection Palpation (GI): No hepatosplenomegaly present Skin General skin exam: no rashes or lesions noted Extrem General: Yes no clubbing, cyanosis or edema Coding Level of Care Code Est Pt Level 3 (71625) Diagnoses Diabetes mellitus with coincident hypertension E11.9; I10 Hypertension I10 Assessment & Plan Assessment & Plan (1) Diabetes mellitus with coincident hypertension: Code(s): E11.9 - Type 2 diabetes mellitus without complications; I10 - Essential (primary) hypertension Category: Medical Plan: stable; same rx (2) Hypertension: Code(s): I10 - Essential (primary) hypertension Category: Medical Plan: stable; same rx Orders: Orders Thyroid Stimulating Hormone Today Z13.29 - Encounter for screening for other suspected endocrine disorder Complete Blood Count Auto Diff Today Z13.0 - Encounter for screening for diseases of the blood and blood-forming organs and certain disorders involving the immune mechanism Microalbumin, Random (w Creat) Today E11.69 - Type 2 diabetes mellitus with other specified complication, E66.01 - Morbid (severe) obesity due to excess calories Hemoglobin A1c Today R73.9 - Hyperglycemia, unspecified Lipid Panel Today Z13.220 - Encounter for screening for lipoid disorders Comprehensive [place]. Panel Fast Today Z13.9 - Encounter for screening, unspecified
[2024-03-04 09:28] VITALS: BP 160/80; PULSE 63; O2SAT 98; BMI 31.0
== END 2024-03-04 09:54 | disposition home or self-care (01) ==
PROVIDERS: PCP Internal Medicine; Visit Provider Internal Medicine
DX: E11.9 Type 2 diabetes mellitus without complications (principal); I10 Essential (primary) hypertension

== ENCOUNTER → 2024-03-04 09:23 | Outpatient (BNVA) | payer MEDICARE, SELFPAY | PROVIDERS: PCP Internal Medicine; Visit Provider Internal Medicine | DX: E11.9 Type 2 diabetes mellitus without complications (principal); I10 Essential (primary) hypertension | CPT/HCPCS: 96127; 99212 ==

== ENCOUNTER 2024-08-25 08:54 | Outpatient (AMB) | payer MEDICARE, SELFPAY ==
--- NOTE | 2024-08-25 08:58 | A.OFFPC_ITS ---
Vital Signs 08/25/24 09:03 08/25/24 09:15 Height 6 ft 1 in Weight 235 lb 6 oz BMI 31.1 BP 162/82 H 140/70 H Blood Pressure Location Lt brachial Position Sitting Pulse 101 H Pulse Source Pulse Oximeter Temp 97.1 F Temp Source Temporal Artery Scan Pulse Oximetry (%) 99 Oxygen Delivery Method Room Air Intake Visit Reasons: ÁLVARO Dr Cabello - see comments Blood Bank Laboratory Professional Required: No Accompanied by: Self / Same As Patient Allergies No Known Allergies Allergy (Verified 08/25/24 09:08) Medication List - Last Reconciled 08/25/24 by Rohith Marin PA-C alcohol swabs 0 pad topical DAILY aspirin (Adult Low Dose Aspirin) 81 mg PO DAILY atorvastatin 80 mg PO DAILY blood sugar diagnostic (AquaBlokuch Verio test strips) Use to check blood sugars once a day blood-glucose meter ([employer] Verio Meter) Use to check blood sugars once daily lancets (YotomoTouch Delica Lancets) Use to check blood sugars once a day lisinopril 40 mg PO DAILY metformin ER 500 mg PO QPM Tobacco use date assessed: 08/25/24 Fall risk assessment: No Falls in past year Last assessed Fall Risk: 08/25/24 Dental Screening Dental Screen Date: 08/25/24 Did you have a dental visit in the last 12 months?: No Did you have a dental problem in the last 6 months where you did not have access to dental care?: No Was dental information given to patient?: No HPI ÁLVARO Dr Cabello - see comments HPI Details Patient is a 79-year-old male here today for a transfer of care visit. Previous PCP is Dr. Cabello. Patient has a past medical history significant for type 2 diabetes, hypertension and hyperlipidemia ... Hypertension: Patient's blood pressure elevated today in office. He does monitor his blood pressure at home and reports 140 systolic regularly. He is consistent with the use of his lisinopril. .. Type 2 diabetes: Today's A1c acceptable at 6.2, continues on metformin 500 extended release daily. Has lost a little bit of weight over the last year. [facility] Medical History Diabetes mellitus Hyperlipidemia Hypertension Surgical History History of ankle surgery Family History Mother No problems noted. Father No problems noted. 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 1. Little interest or pleasure in doing things: not at all 2. Feeling down, depressed, or hopeless: not at all 3. Trouble falling or staying asleep, or sleeping too much: not at all 4. Feeling tired or having little energy: not at all 5. Poor appetite or overeating: not at all 6. Feeling bad about yourself - or that you are a failure or have let yourself or your family down: not at all 7. Trouble concentrating on things, such as reading the newspaper or watching television: not at all 8. Moving or speaking so slowly that other people could have noticed. Or the opposite - being so fidgety or restless that you have been moving around a lot more than usual: not at all 9. Thoughts that you would be better off or of hurting yourself in some way: not at all Total score: 0 Depression Screening Interpretation: Negative Depression Screening Done: Yes 45020 - PHQ-9 Billing: Yes Source: Developed by Drs. Cem Garg, Brionna Garcia, Parish Rowe and colleagues, with an educational rah from [employer]. Thrive Questionnaire Date Thrive assessed: 08/25/24 I am a: Patient What is your living situation today?: I have a steady place to live Within the past 12 months, did the food you bought not last and you didn't have the money to get more?: Often true Within the past 12 months, did you worry whether your food would run out before you got money to buy more?: I choose not to answer this question Do you have trouble paying for medicines?: I choose not to answer this question Do you have trouble getting transportation to medical appointments?: I choose not to answer this question Do you have trouble paying your heating and electricity bill?: I choose not to answer this question Do you have trouble taking care of your child, family member or friend?: I choose not to answer this question Do you have trouble with day-to-day activities such as bathing, preparing meals, shopping, managing finances, etc.?: I choose not to answer this question Are you currently unemployed and looking for a job?: I choose not to answer this question Are you interested in more education?: I choose not to answer this question Please select the resources that you would like help with: None Currently or been in a relationship where the following occur: No concerns reported THRIVE Score: 1 AUDIT C Alcohol Use Questionnaire (AUDIT-C) 1. How often do you have a drink containing alcohol?: 2-3 times a week 2. How many drinks containing alcohol do you have on a typical day when you are drinking?: 1 or 2 3. How often do you have six or more drinks on one occasion?: Never Total Score: 3 Score Reviewed/Action Taken: Yes MUKESH-7 AMB Questionnaire MUKESH-7 Date MUKESH - 7 assessed: 08/25/24 Feeling nervous, anxious, or on edge: 0 = Not at all Not being able to stop or control worryin = Not at all Worrying too much about different things: 0 = Not at all Trouble relaxin = Not at all Being so restless that it is hard to sit still: 0 = Not at all Becoming easily annoyed or irritable: 0 = Not at all Feeling afraid as if something awful might happen: 0 = Not at all Total MUKESH-7 score (0-4 normal; 5-9 mild; 10-14 moderate; 15-21 severe): 0 Source: Developed by Drs. Cem Garg, Brionna Garcia, Parish Rowe and colleagues, with an educational rah from [employer]. MUKESH-7 Assessment Billing MUKESH-7 Assessment Tool: MUKESH-7 Assessment 72053 Review of Systems Const Denies headache(s) Eyes Denies loss of vision ENT Denies vertigo, Denies dizziness, Denies headache(s) and Denies sore throat Card Denies chest pain, Denies leg edema and Denies lightheadedness Resp Denies cough, Denies hemoptysis and Denies wheezing GI Denies abdominal pain, Denies melena, Denies constipation, Denies diarrhea and Denies vomiting Denies dysuria, Denies urinary frequency and Denies urinary urgency Musc Denies arthralgias, Denies joint swelling, Denies numbness and Denies tingling Neuro Denies Abnormal speech present, Denies behavioral changes, Denies vertigo, Denies dizziness, Denies headache(s), Denies loss of vision, Denies memory loss, Denies numbness and Denies tingling Psych Denies anxiety, Denies behavioral changes, Denies depression, Denies memory loss and Denies panic attacks Tomas/Lymph Denies easy bleeding and Denies easy bruising Aller/Immun Denies wheezing Physical exam (Primary Care) Vital Signs: Last Vital Signs Temp 97.1 F 08/25/24 09:03 Pulse 101 H 08/25/24 09:03 BP 140/70 H 08/25/24 09:15 Pulse Ox 99 08/25/24 09:03 Oxygen Delivery Method Room Air 08/25/24 09:03 BMI result Body Mass Index 31.1 BMI Assessment/Plan discussion: High BMI High, discussed plan: lifestyle, weight reduction, dietary and physical activity Tobacco/Smoking Status: Tobacco use Status Tobacco use date assessed 08/25/24 08/25/24 09:06 Patient Tobacco Use Status Never used Tobacco 08/25/24 08:58 e-Cigarette/Vaping Use Never Used 08/25/24 08:58 PHQ-9: PHQ-9 Score PHQ-9: Total score 0 08/25/24 09:12 Depression Screening Interpretation: Negative Thrive Assessment: Date of Thrive Assessment Date Thrive assessed 08/25/24 08/25/24 08:58 Currently or been in a relationship where the following occur: No concerns reported Const General: healthy appearing, no acute distress, alert and awake Nutritional Appearance: well nourished Orientation/consciousness: oriented to person, oriented to place and oriented to time HENMT Ears: TM's normal bilaterally General nose exam: Normal nasal mucous membranes and turbinates present Eyes Conjunctivae: conjunctivae normal Sclerae: sclerae normal Pupils: Equal, round and reactive pupils present Neck Neck: Yes no lymphadenopathy and Yes no JVD Thyroid: Thyroid normal Carotids: no bruits Resp Effort & Inspection: normal respiratory effort and not tachypneic Auscultation: no crackles, no rales, no rhonchi and no wheezes Cardio Rate: regular rate Rhythm: abnormal rhythm Heart sounds: no murmurs and normal S1 and S2 GI Palpation (GI): Soft to palpation, nontender, no hepatomegaly and no splenomegaly Auscultation: normal bowel sounds Skin General skin exam: no rashes or lesions noted and dry skin Neuro General: oriented to person, oriented to place and oriented to time Cranial nerves: Yes Equal, round and reactive pupils present Speech: No Abnormal speech present Gait exam (Neuro): Normal gait present Motor exam (neuro): no tremor noted Extrem Right upper extremity: full ROM Left upper extremity: full ROM Right lower extremity: full ROM; no edema Left lower extremity: full ROM; no edema Psych Mental Status: mental status grossly normal Speech and movement: Normal speech and movement present Affect: normal affect Attitude: cooperative Thought process: Normal thought process present Office Procedures EKG Details: - AFib with mean ventricular response. [id number], Complete Results AMB Hemoglobin A1c AMB Hemoglobin A1c 6.2 % Last Edit by JANET Calero on 08/25/24 09:12 Results Reviewed Results Reviewed: Laboratory Last Values Hgb A1c (Clinic) 6.2 % (4.0-6.0) H 08/25/24 09:12 Coding Level of Care Code Est Pt Level 4 (93731) Diagnoses Atrial fibrillation, unspecified type I48.91 Atrial fibrillation type: unspecified Type 2 diabetes mellitus without complication, without long-term current use of insulin E11.9 Diabetes mellitus complication status: without complication Diabetes mellitus watermaster insulin use: without usp use Diabetes mellitus type: type 2 Mixed hyperlipidemia E78.2 Hyperlipidemia type: mixed hyperlipidemia Primary hypertension I10 Hypertension type: primary hypertension CPT Codes EKG - CPT: 92775-[id number], Complete ([id number]) Additional Codes MUKESH-7 Assessment Billing - MUKESH-7 Assessment Tool: MUKESH-7 Assessment 89259 ([id number]) PHQ-9 - 39053 - PHQ-9 Billing: Yes ([id number]) Assessment & Plan Assessment & Plan (1) Afib: Code(s): I48.91 - Unspecified atrial fibrillation Category: Medical Qualifiers: Atrial fibrillation type: unspecified Qualified Code(s): I48.91 - Unspecified atrial fibrillation Plan: Noted to have irregular rhythm today in office, EKG showing AFib with a mean ventricular response. CHADS-VASc score- 4 Will start beta-kit for rate control and Eliquis for stroke prophylaxis. Will refer to Cardiology for further evaluation. Otherwise patient is asymptomatic without any shortness of breath, dizziness headaches or heart palpitations. (2) Diabetes mellitus: Code(s): E11.9 - Type 2 diabetes mellitus without complications Category: Medical Qualifiers: Diabetes mellitus complication status: without complication Diabetes mellitus watermaster insulin use: without watermaster use Diabetes mellitus type: type 2 Qualified Code(s): E11.9 - Type 2 diabetes mellitus without complications Plan: Patient's type 2 diabetes well controlled with current dose of metformin. Continue current dose of metformin with goal A1c to remain below 7.0. (3) Hyperlipidemia: Code(s): E78.5 - Hyperlipidemia, unspecified Category: Medical Qualifiers: Hyperlipidemia type: mixed hyperlipidemia Qualified Code(s): E78.2 - Mixed hyperlipidemia Plan: Patient's most recent lipid panel showing good control of his total cholesterol and LDL. Continues on highest potency statin. Goal LDL is to remain below 100 (4) Hypertension: Code(s): I10 - Essential (primary) hypertension Category: Medical Qualifiers: Hypertension type: primary hypertension Qualified Code(s): I10 - Essential (primary) hypertension Plan: Patient's blood pressure elevated today in office. Will add on metoprolol 25 mg extended release due to his new onset AFib. Patient does monitor his blood pressure at home and does report 140s systolic. Will consider adding on hydrochlorothiazide her blood pressures remain 140 and above. Goal blood pressure to be below 140/90 Orders: Orders Lipid Panel Today E78.5 - Hyperlipidemia, unspecified Prostate Specific Antigen Scr Today E78.5 - Hyperlipidemia, unspecified, Z12.5 - Encounter for screening for malignant neoplasm of prostate Microalbumin, Random (w Creat) Today I10 - Essential (primary) hypertension AMB Hemoglobin A1c Today E11.9 - Type 2 diabetes mellitus without complications Comprehensive [place]. Panel Fast Today E11.9 - Type 2 diabetes mellitus without complications, I10 - Essential (primary) hypertension Complete Blood Count no Diff Today E11.9 - Type 2 diabetes mellitus without complications, I10 - Essential (primary) hypertension Referrals Cardiology Referral I48.91 - Unspecified atrial fibrillation Medications: New metoprolol succinate ER 25 mg PO DAILY 90 tabs 1RF 90 days I48.91 - Unspecified atrial fibrillation apixaban (Eliquis) 5 mg PO BID 60 tabs 3RF 30 days I48.91 - Unspecified atrial fibrillation Refilled blood sugar diagnostic (OneTouch Verio test strips) Use to check blood sugars once a day 100 ea 0RF DX: E11.9
[2024-08-25 09:03] VITALS: BP 162/82; PULSE 101; TEMP 36.2; O2SAT 99; BMI 31.1
--- OUTSIDE RECORDS SUMMARY | 2024-08-25 09:14 | XMS_ITS | Patient Health Record ---
Author Organization [facility] Address [address] [place] [address] Care Team Providers Care Transformer Stock Clerk Name Role Phone Rohith Marin Primary Care Provider Unavailab Katelin Cramer Unavailable [phone] HuffmanElviraBenedict Unavailable [phone] Allergies Allergen (clinical drug ingredient) Drug/Non Drug Allergy documented on EMR Reaction Allergy Type Onset Date Status Penicillin Rash Drug Allergy Active Results Component Value Reference Range Notes HEMOGLOBIN A1C (GLYCOHEMOGLO BIN) Reviewed date:07/05/2024 09:05:53 AM Interpretation: Performing Lab: Notes/Report: HEMOGLOBIN A1C % (HH) 6.7 Reason For Referral No Information Medications Medication SIG (Take, Route, Frequency, Duration) Notes Start Date End Date Status Extra Depth Diabetic Shoes with 3 Pair Custom heat-molded multi-density innersoles for 1 year Dx: Active metFORMIN HCl Active Aspir-81 Active Atorvastatin Calcium 80 MG 1 tablet Orally Once a day for 30 day(s) Active Lisinopril 30 MG 1 tablet Orally Once a day for 30 day(s) Active Doxycycline Monohydrate 100 MG 1 capsule Orally Once a day for 10 days 01/11/2021 Not-Taking Extra Depth Diabetic Shoes with 3 Pair Custom heat-molded multi-density innersoles for 1 year Dx: 06/12/2020 Not-Taking Walking Boot/Pneumatic As directed Wear Daily for Until further notice 01/11/2021 Not-Taking Work Note . . . 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 Yes How often did you have a dri nk containing alcohol in the past year? 2 to 4 times a month (2 points) Points 2 Interpretation Negative Tobacco use other than smoking: Question Answer Notes Are you an other tobacco user? No Tobacco Control (Standard) Question Answer Notes Tobacco use: Nonsmoker Additional Findings: Tobacco non-user Current no nsmoker Problems Problem Type SNOMED Code ICD Code Onset Dates Problem Status W/U Status Risk Notes Problem Polyneuropathy due to diabetes mellitus type I (265996850) 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 confirmed Problem Acquired hallux valgus (37465929) Hallux valgus (acquired), right foot (M20.11) Active confirmed Problem Polyneuropathy due to type 2 diabetes mellitus (077674253) Type 2 diabetes mellitus with diabetic polyneuropathy (E11.42) Active confirmed Vital Signs Blood pressure diastolic 72 mm Hg 07/05/2024 Height 6ft 1in in 07/05/2024 Blood pressure systolic 131 mm Hg 07/05/2024 Weight 245 lbs 07/05/2024 BMI 32.32 kg/m2 07/05/2024 Procedures Procedure Date Ordered Date Performed Result Body Sit e 28654-GVYATGY NAIL, 6 OR MORE 07/05/2024 N/A 45283-FMCG SKIN LESIONS, OVER 4 07/05/2024 N/A Encounters Encounter Location Date Provider Diagnosis [address] [address] 11/27/2023 Benedict Huffman Type 2 diabetes mellitus with diabetic polyneuropathy E11.42 ; Pain in right toe(s) M79.674 ; Tinea unguium B35.1 ; Pain in left toe(s) M79.675 ; Hallux valgus (acquired), right foot M20.11 and Ingrowing nail L60.[address] [address] 07/05/2024 Katelin Shi Type 2 diabetes mellitus with diabetic polyneuropathy E11.42 and Tinea unguium B35.1 [facility] [address] [place] [address] 10/30/2023 Benedict Huffman Assessments Encounter Date Diagnosis (ICD Code) Assessment Notes Treatment Notes Treatment Clinical Notes Section Notes 11/27/2023 Type 2 diabetes mellitus with diabetic polyneuropathy (ICD-10 - E11.42) 07/05/2024 Type 2 diabetes mellitus with diabetic polyneuropathy (ICD-10 - E11.42) 07/05/2024 Tinea unguium (ICD-10 - B35.1) 11/27/2023 Pain in right toe(s) (ICD-10 - M79.674) 11/27/2023 Tinea unguium (ICD-10 - B35.1) 11/27/2023 Pain in left toe(s) (ICD-10 - M79.675) 11/27/2023 Hallux valgus (acquired), right foot (ICD-10 - M20.11) 11/27/2023 Ingrowing nail (ICD-10 - L60.0) Plan Of Treatment Pending Test Test Name Order Date X ray : Foot, right 3V 02/01/2021 37743-NIMOHTU NAIL, 6 OR MORE 07/05/2024 33308-PHJZ SKIN LESIONS, OVER 4 07/06/19 25 96809-LEUE SKIN LESIONS, OVER 4 07/06/19 22 28191-AOJJ SKIN LESIONS, OVER 4 06/13/19 21 86603-LSCG SKIN LESIONS, OVER 4 09/12/19 21 77967-DGKG SKIN LESIONS, OVER 4 01/12/20 21 60211-IEZBOZAJ OF HEMATOMA/FLUID 023 16359-ICUJDBED OF HEMATOMA/FLUID 021 Next Appt Details Provider Name:Katelin nguyen, 11/04/2024 11:00:00 AM, [address] [facility], [facility] [address], [place], [address], Insurance Providers Payer Name Payer Address Payer Phone Subscriber Number Group Number Insured Name Patient Relationship to Insured Coverage Start Date Coverage End Date [employer] Medicare Adv-[id number] [address] [address] [place] [address] [id number] Yemi Díaz Self - patient is the insured Medical (General) History Medical History History ICD Code Broken bones Chicken pox Diabetes mellitus Gout High blood pressure Joint implants/screws Measles Mumps Surgical History Surgery Date(Month/Year) ankle surgery 04/30/2009 Carpal Tunnel 08/28/22 Hospitalization History Reason Date(Month/Year)
[2024-08-25 09:15] VITALS: BP 140/70
== END 2024-08-25 09:44 | disposition home or self-care (01) ==
LOC: HO.HMCH 08:55
PROVIDERS: PCP Physician Assistant; Visit Provider Physician Assistant
DX: I48.91 Unspecified atrial fibrillation (principal); E11.9 Type 2 diabetes mellitus without complications; E78.2 Mixed hyperlipidemia; I10 Essential (primary) hypertension

== ENCOUNTER → 2024-08-25 08:54 | Outpatient (BNVA) | payer MEDICARE, SELFPAY | PROVIDERS: PCP Internal Medicine; Visit Provider Physician Assistant | DX: E11.9 Type 2 diabetes mellitus without complications (principal); I48.91 Unspecified atrial fibrillation; E78.2 Mixed hyperlipidemia; I10 Essential (primary) hypertension | CPT/HCPCS: 83036; 93005; 96127; 99212 ==

== ENCOUNTER 2024-09-12 09:09 | Outpatient (REF) | payer MEDICARE, SELFPAY ==
[2024-09-12 09:44] LABS: INTERNATIONAL NORM RATIO 1.1 (0.9-1.1); Prothrombin Time 12.8 SEC (10.9-12.4)
--- OUTSIDE RECORDS SUMMARY | 2024-09-12 09:46 | XMS_ITS | Patient Health Record ---
Author Organization [facility] Address [address] [place] [address] Care Team Providers Care Fitness Services Manager Name Role Phone Rohith Marin Primary Care Provider Unavailab Katelin Cramer Unavailable [phone] HuffmanElviraBenedict Unavailable [phone] Allergies Allergen (clinical drug ingredient) Drug/Non Drug [...] Polyneuropathy due to diabetes mellitus type I (585530040) 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 confirmed Problem Acquired hallux valgus (18791804) Hallux valgus (acquired), right foot (M20.11) Active confirmed Problem Polyneuropathy due to type 2 diabetes mellitus (742948163) Type 2 diabetes mellitus with diabetic polyneuropathy (E11.42) Active confirmed Vital Signs Blood pressure diastolic 72 mm Hg 07/05/2024 Height 6ft 1in in 07/05/2024 Blood pressure systolic 131 mm Hg 07/05/2024 Weight 245 lbs 07/05/2024 BMI 32.32 kg/m2 07/05/2024 Procedures Procedure Date Ordered Date Performed Result Body Sit e 60497-ZGDAAZM NAIL, 6 OR MORE 07/05/2024 N/A 06386-SXGO SKIN LESIONS, OVER 4 07/05/2024 N/A Encounters Encounter Location Date Provider Diagnosis [address] [address] 11/27/2023 Benedict Huffman Type 2 diabetes mellitus with diabetic polyneuropathy E11.42 ; Pain in right toe(s) M79.674 ; Tinea unguium B35.1 ; Pain in left toe(s) M79.675 ; Hallux valgus (acquired), right foot M20.11 and Ingrowing nail L60.[address] [facility] [address] 07/05/2024 Katelin Shi Type 2 diabetes mellitus with diabetic polyneuropathy E11.42 and Tinea unguium B35.1 [facility] [address] [place] [address] 10/30/2023 Benedict Huffman Assessments Encounter Date Diagnosis [...] X ray : Foot, right 3V 02/01/2021 44737-AKEMBLY NAIL, 6 OR MORE 07/05/2024 18233-UVGU SKIN LESIONS, OVER 4 07/06/19 25 99501-UMFP SKIN LESIONS, OVER 4 07/06/19 22 00612-GOGS SKIN LESIONS, OVER 4 06/13/19 21 85882-IKXY SKIN LESIONS, OVER 4 09/12/19 21 18440-XCYG SKIN LESIONS, OVER 4 01/12/20 21 82437-YJYCQURO OF HEMATOMA/FLUID 023 39997-HBMVSBYG OF HEMATOMA/FLUID 021 Next Appt Details Provider Name:Katelin nguyen, 11/04/2024 11:00:00 AM, [address] [facility], [facility] [address], [place], [address], Insurance Providers Payer Name Payer Address Payer Phone Subscriber Number Group Number Insured Name Patient Relationship to Insured Coverage Start Date Coverage End Date [employer] Medicare Adv-[id number] [address] [address] [place] [address] [id number] Yemi Díaz Self - patient is the insured Medical (General) History Medical History History ICD Code Broken bones Chicken pox Diabetes mellitus Gout High blood pressure Joint implants/screws Measles Mumps Surgical History Surgery Date(Month/Year) ankle surgery 04/30/2009 Carpal Tunnel 08/28/22 Hospitalization History Reason Date(Month/Year)
== END 2024-09-12 09:10 | disposition home or self-care (01) ==
LOC: HO.LAB 09:09
PROVIDERS: PCP Physician Assistant; Visit Provider Physician Assistant
DX: I48.91 Unspecified atrial fibrillation (principal)
CPT/HCPCS: 36415; 85610

== ENCOUNTER 2024-09-16 08:10 | Outpatient (AMB) | payer MEDICARE, SELFPAY ==
--- OUTSIDE RECORDS SUMMARY | 2024-09-16 08:13 | XMS_ITS | Patient Health Record ---
Author Organization [facility] Address [address] [place] [address] Care Team Providers Care Steam And Power Superintendent Name Role Phone Rohith Marin Primary Care Provider Unavailab Katelin Cramer Unavailable [phone] HuffmanElviraBenedict Unavailable [phone] Allergies Allergen (clinical drug ingredient) Drug/Non Drug [...] Polyneuropathy due to diabetes mellitus type I (162618910) 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 confirmed Problem Acquired hallux valgus (05792126) Hallux valgus (acquired), right foot (M20.11) Active confirmed Problem Type 2 diabetes mellitus with diabetic polyneuropathy (E11.42) Active confirmed Vital Signs Blood pressure diastolic 72 mm Hg 07/05/2024 Height 6ft 1in in 07/05/2024 Blood pressure systolic 131 mm Hg 07/05/2024 Weight 245 lbs 07/05/2024 BMI 32.32 kg/m2 07/05/2024 Procedures Procedure Date Ordered Date Performed Result Body Sit e 75676-DNKKNZF NAIL, 6 OR MORE 07/05/2024 N/A 92118-DRJR SKIN LESIONS, OVER 4 07/05/2024 N/A Encounters Encounter Location Date [facility] [address] 11/27/2023 Benedict Huffman Type 2 diabetes mellitus with diabetic polyneuropathy E11.42 ; Pain in right toe(s) M79.674 ; Tinea unguium B35.1 ; Pain in left toe(s) M79.675 ; Hallux valgus (acquired), right foot M20.11 and Ingrowing nail L60.[address] [facility] [address] 07/05/2024 Katelin Shi Type 2 diabetes mellitus with diabetic polyneuropathy E11.42 and Tinea unguium B35.1 [facility] [address] [place] [address] 10/30/2023 Benedict Nathanael Assessments Encounter Date Diagnosis (ICD Code) Assessment [...] X ray : Foot, right 3V 02/01/2021 39855-QZGOMQE NAIL, 6 OR MORE 07/05/2024 23882-HYSX SKIN LESIONS, OVER 4 07/06/19 25 68726-FYFP SKIN LESIONS, OVER 4 07/06/19 22 96590-MZQU SKIN LESIONS, OVER 4 06/13/19 21 95013-NZYV SKIN LESIONS, OVER 4 09/12/19 21 80411-FRDL SKIN LESIONS, OVER 4 01/12/20 21 15920-REAEXKNQ OF HEMATOMA/FLUID 023 57975-CLYKHPNR OF HEMATOMA/FLUID 021 Next Appt Details Provider Name:Katelin nguyen, 11/04/2024 11:00:00 AM, [address] [facility], [facility] [address], [place], [address], Insurance Providers Payer Name Payer Address Payer Phone Subscriber Number Group Number Insured Name Patient Relationship to Insured Coverage Start Date Coverage End Date [employer] Medicare Adv-[id number] [address] [address] [place] [address] [id number] Yemi Díaz Self - patient is the insured Medical (General) History Medical History History ICD Code Broken bones Chicken pox Diabetes mellitus Gout High blood pressure Joint implants/screws Measles Mumps Surgical History Surgery Date(Month/Year) ankle surgery 04/30/2009 Carpal Tunnel 08/28/22 Hospitalization History Reason Date(Month/Year)
[2024-09-16 08:36] LABS: ~PT, ~INR - Anti Coag Clinic 1.2 (0.9-1.1)
--- NOTE | 2024-09-16 08:39 | MHC.OFFVISCO ---
Intake Intake Visit Reasons: Anticoagulation Allergies No Known Allergies Allergy (Verified 08/25/24 09:08) Medication List - Last Reconciled 09/16/24 by Tala Reyes RN alcohol swabs 0 pad topical DAILY aspirin (Adult Low Dose Aspirin) 81 mg PO DAILY atorvastatin 80 mg PO DAILY blood sugar diagnostic ([employer] Verio test strips) Use to check blood sugars once a day blood-glucose meter ([employer] Verio Meter) Use to check blood sugars once daily lancets (EventSneakerTouch Delica Lancets) Use to check blood sugars once a day lisinopril 40 mg PO DAILY metformin ER 500 mg PO QPM metoprolol succinate ER 25 mg PO DAILY 90 days warfarin 2 mg PO DAILY 30 days Nursing Note pt new to warfarin x 9 days for Afib discovered on physical, pt states he has had a long hx of HTN, was asymptomatic of Afib just occasionally GUZMAN. B/p 140/72 HR 76 Afib A+Ox 3 resp easy unlabored, offers no c/o pain or discomfort. 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 Pt states he has a much better of understanding of his condition and warfarin now. Tour of clinic, hours of operation and indtruction to staff given with positive response INR: 1.2 after 9 days of warfarin not therapeutic range 2.0-3.0 Medications and supplements reviewed No changes in health, diet, medications, or supplements, Denies any signs and symptoms of bleeding or bruising or clotting. 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 Education Record Teaching Recipient: Patient What is the easiest way to learn: Reading, Listening, Demonstration and Education Packet Barriers to Learning Identified: Emotional (NEW FOR HIM ) Readiness To Learn: Excellent Teaching Methods: Demonstration Education Intervention/Brief Description of Teaching 1. Able to state reason for taking Warfarin: Yes 2. Able to state Pain Management techniques: Yes 3. Able to state action of Warfarin.: Yes Able to state current dose, pill color, how and when Warfarin to be taken: Yes Able to identify signs of bleeding &/or clotting: Yes 4. Able to identify need to keep diet consistent in regard to vitamin K intake: Yes Able to state restriction on alcohol: Yes 5. Able to state need for compliance with PT/INR testing: Yes Describes rationale for carrying ID and wearing Medic Alert bracelet: Yes Patient instructed to monitor for excess bruising or signs/symptoms of clotting or bleeding: Yes 6. Able to state that there are drugs that interact with Warfin: Yes 7. Able to state the need to seek medical attention when illness/injury occur.: Yes Describes the need to avoid activities with high risk of injury: Yes 8. Able to state duration of treatment: Yes 9. Demonstrates understanding of notifying all providers of pending dental surgical, or other invasive procedures: Yes 10. Able to state Home Care instructions Questionnaires HAS-BLED Does the patient had uncontrolled Hypertension?: No Does the patient have renal disease?: No Does the patient have liver disease?: No Does the patient have a history of stroke?: No Has the patient had major bleeding or predisposition to bleeding?: No Does the patient have labile INRs?: Yes Is the patient over 65 years of age?: Yes Is the patient on medications that gives them a predisposition to bleeding?: Yes Does the patient use alcohol?: Yes HAS-BLED Score: 4 CHADSVASC Age: 75 or over Gender: Male Does the patient have a history of CHF?: No Does the patient have a history of Hypertension?: Yes Does the patient have a history of Stroke/TIA/Thromboembolism?: No Does the patient have a history of Vascular Disease (prior UT, PAD or aortic plaque)?: No Does the patient have a history of Diabetes?: Yes CHADS VACS Score: 4 Carlotta Prediction Score Rsk VTE Active Cancer: No Previous VTE, excluding superficial vein thrombosis: No Reduced mobility: No Already known Thrombophilic Condition: No With-in last month Trauma and/or Surgery: No Elderly 70 year or older: Yes Heart and/or Respiratory Failure: No Acute Myocardial infarction and/or Ischemic Stroke: No Acute Infection and/or Rheumatologic Disorder: No Obesity (BMI 30 or greater): No Ongoing Hormonal Treatment: No Score: 1 Carlotta Score less than 4; Low Risk of VTE Carlotta Score 4 or greater; High Risk of VTE Coding Level of Care Code New Patient Level 2 Diagnoses Current use of anticoagulant therapy Z79.01 Assessment & Plan Assessment & Plan (1) Current use of anticoagulant therapy: Code(s): 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
== END 2024-09-16 09:31 | disposition home or self-care (01) ==
LOC: HO.ACS 08:10
PROVIDERS: PCP Physician Assistant; Visit Provider Internal Medicine Medical Oncology
DX: Z79.01 Long term (current) use of anticoagulants (principal)

== ENCOUNTER → 2024-09-16 08:10 | Outpatient (BNVA) | payer MEDICARE, SELFPAY | PROVIDERS: PCP Physician Assistant; Visit Provider Internal Medicine Medical Oncology | DX: I48.91 Unspecified atrial fibrillation (principal); Z79.01 Long term (current) use of anticoagulants; Z51.81 Encounter for therapeutic drug level monitoring | CPT/HCPCS: 85610; 99202 ==

== ENCOUNTER 2024-09-19 14:36 | Outpatient (AMB) | payer MEDICARE, SELFPAY ==
--- NOTE | 2024-09-19 14:53 | MHC.OFFVISCO ---
Intake Intake Visit Reasons: Anticoagulation Allergies No Known Allergies Allergy (Verified 08/25/24 09:08) Nursing Note Pt to ACS for second visit after starting warfarin for afib approximately two weeks ago. INR: 1.4 out of therapeutic range of 2-3 Medications and supplements reviewed Patient status: well Medications or supplements: no changes Diet: usual diet for pt but pt states he has been avoiding geens Denies any signs and symptoms of bleeding or clotting or unusual bruising Bleeding, bruising, clotting discussed Nutritional guidance given: pt will continue to avoid greens Dose: increase today's dose to 6mg then 4mg daily F/U INR Date: 09/22/24?? Patient verbalizing understanding of instructions given. T/C to provider Harvey Marin. Spoke to Haley and reported critical INR with dosing plan and next retest date. Anti-Coag Initial Assessment Social Hx Patient Tobacco Use Status: Never used Tobacco alcohol intake: current (1-2 BEERS DAILY ) Alcohol intake frequency: 0-2 drinks per day Cardiovascular Hx: HTN (Long history since age 20s) and Arrhythmias (AFIB NEWLY DIAGNOSED) Endocrine Hx: Diabetes (AGE 50'S ) Musculoskeletal Hx: Arthritis and Other (RIGHHT ANKLE FRACTURE 25 YEARS AGO 3 PINS IN IT ) Blood Disorder Hx: Hyperlipidemia Coding Level of Care Code Est Patient Level 2 Diagnoses Current use of anticoagulant therapy Z79.01 Time Spent (min) 30 Comment 2nd visit to ACS/ teaching done and questions answered/dose changes made Results AMB INR Fingerstick AMB INR Fingerstick 1.4 Last Edit by Yamilka Hernandez, RN on 09/19/24 14:41 ACS Assessment & Plan Assessment & Plan (1) Current use of anticoagulant therapy: Code(s): Z79.01 - [facility] (current) use of anticoagulants Category: Medical
[2024-09-19 14:55] LABS: Prothrombin Time Whole Bld POC 16.6 sec (11.1-13.5); ~PT, ~INR - Anti Coag Clinic 1.4 (0.9-1.1)
--- OUTSIDE RECORDS SUMMARY | 2024-09-19 16:07 | XMS_ITS | Patient Health Record ---
Author [facility] Address [address] [place] [address] Care Team Providers Care Elastic Attacher Overlock Name Role Phone Rohith Marin Primary Care Provider Unavailab Katelin Cramer Unavailable [phone] HuffmanElviraBenedict Unavailable [phone] Allergies Allergen (clinical drug ingredient) Drug/Non Drug [...] Polyneuropathy due to diabetes mellitus type I (208099472) 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 confirmed Problem Acquired hallux valgus (67495939) Hallux valgus (acquired), right foot (M20.11) Active confirmed Problem Type 2 diabetes mellitus with diabetic polyneuropathy (E11.42) Active confirmed Vital Signs Blood pressure diastolic 72 mm Hg 07/05/2024 Height 6ft 1in in 07/05/2024 Blood pressure systolic 131 mm Hg 07/05/2024 Weight 245 lbs 07/05/2024 BMI 32.32 kg/m2 07/05/2024 Procedures Procedure Date Ordered Date Performed Result Body Sit e 86917-CJQIZGR NAIL, 6 OR MORE 07/05/2024 N/A 70101-XWME SKIN LESIONS, OVER 4 07/05/2024 N/A Encounters Encounter Location Date [facility] [address] 11/27/2023 Benedict Huffman Type 2 diabetes mellitus with diabetic polyneuropathy E11.42 ; Pain in right toe(s) M79.674 ; Tinea unguium B35.1 ; Pain in left toe(s) M79.675 ; Hallux valgus (acquired), right foot M20.11 and Ingrowing nail L60.0 [facility] [address] 07/05/2024 Katelin Shi Type 2 diabetes mellitus with diabetic polyneuropathy E11.42 and Tinea unguium B35.1 [facility] [address] [place] [address] 10/30/2023 Benedict Nathanael Assessments Encounter Date Diagnosis [...] X ray : Foot, right 3V 02/01/2021 73213-MLLVKID NAIL, 6 OR MORE 07/05/2024 46244-VCZG SKIN LESIONS, OVER 4 07/06/19 25 33863-UBHR SKIN LESIONS, OVER 4 07/06/19 22 09593-LXEV SKIN LESIONS, OVER 4 06/13/19 21 61897-ZGZQ SKIN LESIONS, OVER 4 09/12/19 21 76996-FGSQ SKIN LESIONS, OVER 4 01/12/20 21 86225-MCLKQISI OF HEMATOMA/FLUID 023 03774-IYVWLWSS OF HEMATOMA/FLUID 021 Next Appt Details Provider Name:Katelin nguyen, 11/04/2024 11:00:00 AM, [address] [facility], [facility] [address], [place], [address], Insurance Providers Payer Name Payer Address Payer Phone Subscriber Number Group Number Insured Name Patient Relationship to Insured Coverage Start Date Coverage End Date [employer] Medicare Adv-[id number] [address] [address] [place] [address] [id number] Yemi Díaz Self - patient is the insured Medical (General) History Medical History History ICD Code Broken bones Chicken pox Diabetes mellitus Gout High blood pressure Joint implants/screws Measles Mumps Surgical History Surgery Date(Month/Year) ankle surgery 04/30/2009 Carpal Tunnel 08/28/22 Hospitalization History Reason Date(Month/Year)
== END 2024-09-19 15:31 | disposition home or self-care (01) ==
LOC: HO.ACS 14:36
PROVIDERS: PCP Physician Assistant; Visit Provider Internal Medicine Medical Oncology
DX: Z79.01 Long term (current) use of anticoagulants (principal)

== ENCOUNTER → 2024-09-19 14:36 | Outpatient (BNVA) | payer MEDICARE, SELFPAY | PROVIDERS: PCP Physician Assistant; Visit Provider Internal Medicine Medical Oncology | DX: I48.91 Unspecified atrial fibrillation (principal); Z79.01 Long term (current) use of anticoagulants; Z51.81 Encounter for therapeutic drug level monitoring | CPT/HCPCS: 85610; 99212 ==

== ENCOUNTER 2024-09-22 14:23 | Outpatient (AMB) | payer MEDICARE, SELFPAY ==
--- NOTE | 2024-09-22 14:57 | MHC.OFFVISCO ---
Intake Intake Visit Reasons: Anticoagulation Allergies No Known Allergies Allergy (Verified 09/22/24 14:39) Medication List - Last Reconciled 09/22/24 by Tala Reyes RN alcohol swabs 0 pad topical DAILY aspirin (Adult Low Dose Aspirin) 81 mg PO DAILY atorvastatin 80 mg PO DAILY blood sugar diagnostic ([employer] Verio test strips) Use to check blood sugars once a day blood-glucose meter (P[employer] Verio Meter) Use to check blood sugars once daily lancets (LIANAITouch Delica Lancets) Use to check blood sugars once a day lisinopril 40 mg PO DAILY metformin ER 500 mg PO QPM metoprolol succinate ER 25 mg PO DAILY 90 days warfarin 2 mg See Protocol PO DAILY 30 days Nursing Note pt still in adjustment phase of stable INR and dosing INR 1.7 out of therapeutic range Medications and supplements reviewed Patient status: no changes in health- weather prasad are went through a heat wave Medications or supplements: no changes Diet: good Denies any signs and symptoms of bleeding or clotting or unusual bruising Bleeding, bruising, clotting discussed Nutritional guidance given: no greens today Dose: keep 6mg x 1 day/ 4mg x 6 days F/U INR Date : 09/27/2024 ?? Patient verbalizing understanding of instructions given. Anti-Coag Initial Assessment Social Hx Patient Tobacco Use Status: Never used Tobacco alcohol intake: current (1-2 BEERS DAILY ) Alcohol intake frequency: 0-2 drinks per day Cardiovascular Hx: HTN (Long history since age 20s) and Arrhythmias (AFIB NEWLY DIAGNOSED) Endocrine Hx: Diabetes (AGE 50'S ) Musculoskeletal Hx: Arthritis and Other (RIGHHT ANKLE FRACTURE 25 YEARS AGO 3 PINS IN IT ) Blood Disorder Hx: Hyperlipidemia Coding Level of Care Code Est Patient Level 1 Diagnoses Current use of anticoagulant therapy Z79.01 Results AMB INR Fingerstick AMB INR Fingerstick 1.7 Last Edit by Tala Reyes RN on 09/22/24 14:44 manual entry Assessment & Plan Assessment & Plan (1) Current use of anticoagulant therapy: Code(s): 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
[2024-09-22 15:24] LABS: ~PT, ~INR - Anti Coag Clinic 1.7 (0.9-1.1)
--- OUTSIDE RECORDS SUMMARY | 2024-09-22 17:33 | XMS_ITS | Patient Health Record ---
Author Organization [facility] Address [address] [place] [address] Care Team Providers Care Paper Sales Manager Name Role Phone Rohith Marin Primary Care Provider Unavailab Katelin Cramer Unavailable [phone] HuffmanBenedict Unavailable [phone] Allergies Allergen (clinical drug ingredient) Drug/Non Drug [...] 1 year Dx: Active metFORMIN HCl Active - Active Atorvastatin Calcium 80 MG 1 tablet Orally Once a day; Duration: 30 day(s) Active Lisinopril 30 MG 1 tablet Orally Once a day; Duration: 30 day(s) Active Doxycycline Monohydrate 100 MG 1 capsule Orally Once a day; Duration: 10 days 01/11/2021 Not-Takin g Extra Depth Diabetic Shoes with 3 Pair Custom heat-molded multi-density innersoles for 1 year Dx: 06/12/2020 Not-Taking Walking Boot/Pneumatic As directed Wear Daily; Duration: Until further notice 01/11/2021 Not-Taking Work Note [...] Polyneuropathy due to diabetes mellitus type I (919300574) 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 confirmed Problem Acquired hallux valgus (36746273) Hallux valgus (acquired), right foot (M20.11) Active confirmed Problem Polyneuropathy due to type 2 diabetes mellitus (170417724) Type 2 diabetes mellitus with diabetic polyneuropathy (E11.42) Active confirmed Vital Signs Blood pressure diastolic 72 mm Hg 07/05/2024 Height 6ft 1in in 07/05/2024 Blood pressure systolic 131 mm Hg 07/05/2024 Weight 245 lbs 07/05/2024 BMI 32.32 kg/m2 07/05/2024 Procedures Procedure Date Ordered Date Performed Result Body Sit e 67089-UTWG SKIN LESIONS, OVER 4 07/05/2024 N/A 26600-NCVWSVL NAIL, 6 OR MORE 07/05/2024 N/A Encounters Encounter Location Date Provider Diagnosis [address] [address] 11/27/2023 Benedict Huffman Type 2 diabetes mellitus with diabetic polyneuropathy E11.42 ; Pain in right toe(s) M79.674 ; Tinea unguium B35.1 ; Pain in left toe(s) M79.675 ; Hallux valgus (acquired), right foot M20.11 and Ingrowing nail L60.[address] [address] 07/05/2024 Katelin Shi Type 2 diabetes mellitus with diabetic polyneuropathy E11.42 and Tinea unguium B35.1 [facility] [address] [place] [address] 10/30/2023 Benedict Huffman Assessments Encounter Date Diagnosis [...] X ray : Foot, right 3V 02/01/2021 00476-EAXIXKH NAIL, 6 OR MORE 07/05/2024 63410-UFBL SKIN LESIONS, OVER 4 07/06/19 25 94125-DDGA SKIN LESIONS, OVER 4 07/06/19 22 25955-JAJD SKIN LESIONS, OVER 4 06/13/19 21 68227-VIQJ SKIN LESIONS, OVER 4 09/12/19 21 74946-ASPT SKIN LESIONS, OVER 4 01/12/20 21 48448-UMDREKEQ OF HEMATOMA/FLUID 023 14423-QOBRUQHV OF HEMATOMA/FLUID 021 Next Appt Details Provider Name:Katelin Ronny nguyen, 11/04/2024 11:00:00 AM, [address], [address], [place], [address], Insurance Providers Payer Name Payer Address Payer Phone Subscriber Number Group Number Insured Name Patient Relationship to Insured Coverage Start Date Coverage End Date [employer] Medicare Adv-[id number] [address] [address] [place] [address] [phone] [id number] Yemi Díaz Self - patient is the insured Medical (General) History Medical History History ICD Code Broken bones Chicken pox Diabetes mellitus Gout High blood pressure Joint implants/screws Measles Mumps Surgical History Surgery Date(Month/Year) ankle surgery 04/30/2009 Carpal Tunnel 08/28/22 Hospitalization History Reason Date(Month/Year)
== END 2024-09-22 15:00 | disposition home or self-care (01) ==
LOC: HO.ACS 14:23
PROVIDERS: PCP Physician Assistant; Visit Provider Internal Medicine Medical Oncology
DX: Z79.01 Long term (current) use of anticoagulants (principal)

== ENCOUNTER → 2024-09-22 14:23 | Outpatient (BNVA) | payer MEDICARE, SELFPAY | PROVIDERS: PCP Physician Assistant; Visit Provider Internal Medicine Medical Oncology | DX: I48.91 Unspecified atrial fibrillation (principal); Z79.01 Long term (current) use of anticoagulants; Z51.81 Encounter for therapeutic drug level monitoring | CPT/HCPCS: 85610; 99211 ==

== ENCOUNTER 2024-09-27 13:30 | Outpatient (AMB) | payer MEDICARE, SELFPAY ==
[2024-09-27 13:46] LABS: Prothrombin Time Whole Bld POC 27.2 sec (11.1-13.5); ~PT, ~INR - Anti Coag Clinic 2.3 (0.9-1.1)
--- NOTE | 2024-09-27 13:58 | MHC.OFFVISCO ---
Intake Intake Visit Reasons: Anticoagulation Allergies No Known Allergies Allergy (Verified 09/27/24 13:41) Medication List - Last Reconciled 09/27/24 by Sadaf Akbar RN alcohol swabs 0 pad topical DAILY aspirin (Adult Low Dose Aspirin) 81 mg PO DAILY atorvastatin 80 mg PO DAILY blood sugar diagnostic (Tr[employer]Yauch Verio test strips) Use to check blood sugars once a day blood-glucose meter (Tr[employer]Yauch Verio Meter) Use to check blood sugars once daily lancets (SverveTouch Delica Lancets) Use to check blood sugars once a day lisinopril 40 mg PO DAILY metformin ER 500 mg PO QPM metoprolol succinate ER 25 mg PO DAILY 90 days warfarin See Protocol 6MG X 1 DAY/ 4MG X 6 DAYS 2-3 TABS DAILY PER INR RESULT OF ANTICOAGULATION SERVICES 30 days Nursing Note NO CP,SOB,DIET/MED CHANGES,FALLS OR SX OF BLEEDING. BOOST WEEKLY DOSE TO 6MGM X2 AND RE-INTRODUCE GREENS. RECHECK INR ON 10/03. PT.VERB.GOOD UNDERSTANDING OF DOSING INSTR Anti-Coag Initial Assessment Social Hx Patient Tobacco Use Status: Never used Tobacco alcohol intake: current (1-2 BEERS DAILY ) Alcohol intake frequency: 0-2 drinks per day Cardiovascular Hx: HTN (Long history since age 20s) and Arrhythmias (AFIB NEWLY DIAGNOSED) Endocrine Hx: Diabetes (AGE 50'S ) Musculoskeletal Hx: Arthritis and Other (RIGHHT ANKLE FRACTURE 25 YEARS AGO 3 PINS IN IT ) Blood Disorder Hx: Hyperlipidemia Coding Level of Care Code Est Patient Level 1 Diagnoses Current use of anticoagulant therapy Z79.01 Assessment & Plan Assessment & Plan (1) Current use of anticoagulant therapy: Code(s): Z79.01 - emt intermediate (current) use of anticoagulants Category: Medical
--- OUTSIDE RECORDS SUMMARY | 2024-09-27 14:40 | XMS_ITS | Patient Health Record ---
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 confirmed Problem Acquired hallux valgus (26105968) Hallux valgus (acquired), right foot (M20.11) Active confirmed Problem Type 2 diabetes mellitus with diabetic polyneuropathy (E11.42) Active confirmed Vital Signs Blood pressure diastolic 72 mm Hg 07/05/2024 Height 6ft 1in in 07/05/2024 Blood pressure systolic 131 mm Hg 07/05/2024 Weight 245 lbs 07/05/2024 BMI 32.32 kg/m2 07/05/2024 Procedures Procedure Date Ordered Date Performed Result Body Sit e 51495-QSXZJOH NAIL, 6 OR MORE 07/05/2024 N/A 57488-TAQG SKIN LESIONS, OVER 4 07/05/2024 N/A Encounters Encounter Location Date Provider [facility] [address] 11/27/2023 Benedict Huffman Type 2 diabetes mellitus with diabetic polyneuropathy E11.42 ; Pain in right toe(s) M79.674 ; Tinea unguium B35.1 ; Pain in left toe(s) M79.675 ; Hallux valgus (acquired), right foot M20.11 and Ingrowing nail L60.0 [facility] [address] 07/05/2024 Katelin Shi Type 2 diabetes mellitus with diabetic polyneuropathy E11.42 and Tinea unguium B35.1 [facility] [address] [place] [address] 10/30/2023 Benedict Huffman Assessments Encounter Date Diagnosis [...] X ray : Foot, right 3V 02/01/2021 27425-ANLALBD NAIL, 6 OR MORE 07/05/2024 07494-CSIZ SKIN LESIONS, OVER 4 07/06/19 25 70396-DRXW SKIN LESIONS, OVER 4 07/06/19 22 83801-ZAGK SKIN LESIONS, OVER 4 06/13/19 21 74254-QUJD SKIN LESIONS, OVER 4 09/12/19 21 25684-ZOZV SKIN LESIONS, OVER 4 01/12/20 21 93588-ZSAXHTFI OF HEMATOMA/FLUID 023 73696-GWSUKJQR OF HEMATOMA/FLUID 021 Next Appt Details Provider Name:Katelin Ronny nguyen, 11/04/2024 11:00:00 AM, [address] [facility], [facility] [address], [place], [address], Insurance Providers Payer Name Payer Address Payer Phone Subscriber Number Group Number Insured Name Patient Relationship to Insured Coverage Start Date Coverage End Date [employer] Medicare Adv-[id number] [address] [address] [place] [address] [id number] Yemi Díaz Self - patient is the insured Medical (General) History Medical History History ICD Code Broken bones Chicken pox Diabetes mellitus Gout High blood pressure Joint implants/screws Measles Mumps Surgical History Surgery Date(Month/Year) ankle surgery 04/30/2009 Carpal Tunnel 08/28/22 Hospitalization History Reason Date(Month/Year)
== END 2024-09-27 14:04 | disposition home or self-care (01) ==
LOC: HO.ACS 13:30
PROVIDERS: PCP Physician Assistant; Visit Provider Internal Medicine Medical Oncology
DX: Z79.01 Long term (current) use of anticoagulants (principal)

== ENCOUNTER → 2024-09-27 13:30 | Outpatient (BNVA) | payer MEDICARE, SELFPAY | PROVIDERS: PCP Physician Assistant; Visit Provider Internal Medicine Medical Oncology | DX: I48.91 Unspecified atrial fibrillation (principal); Z79.01 Long term (current) use of anticoagulants; Z51.81 Encounter for therapeutic drug level monitoring | CPT/HCPCS: 85610; 99211 ==

== ENCOUNTER 2024-10-03 14:27 | Outpatient (AMB) | payer MEDICARE, SELFPAY ==
[2024-10-03 14:40] LABS: Prothrombin Time Whole Bld POC 33.5 sec (11.1-13.5); ~PT, ~INR - Anti Coag Clinic 2.8 (0.9-1.1)
--- NOTE | 2024-10-03 14:41 | MHC.OFFVISCO ---
Intake Intake Visit Reasons: Anticoagulation Allergies No Known Allergies Allergy (Verified 10/03/24 14:29) Medication List - Last Reconciled 10/03/24 by Yamilka Hernandez, RN alcohol swabs 0 pad topical DAILY aspirin (Adult Low Dose Aspirin) 81 mg PO DAILY atorvastatin 80 mg PO DAILY blood sugar diagnostic (True Blue Fluid SystemsTouch Verio test strips) Use to check blood sugars once a day blood-glucose meter ([employer] Verio Meter) Use to check blood sugars once daily lancets (True Blue Fluid SystemsTouch Delica Lancets) Use to check blood sugars once a day lisinopril 40 mg PO DAILY metformin ER 500 mg PO QPM metoprolol succinate ER 25 mg PO DAILY 90 days warfarin See Protocol 6MG X 1 DAY/ 4MG X 6 DAYS 2-3 TABS DAILY PER INR RESULT OF ANTICOAGULATION SERVICES 30 days Nursing Note INR: 2.8 in therapeutic range of 2-3 Medications and supplements reviewed No changes in health, diet, medications, or supplements, Denies any signs and symptoms of bleeding or bruising or clotting. Bleeding, bruising, clotting discussed Nutritional guidance given Dose: 4mg X 5 days and 6mg X 2 days (Thu & Wed) F/U INR: 1 week Patient verbalizes understanding of instructions given Anti-Coag Initial Assessment Social Hx Patient Tobacco Use Status: Never used Tobacco alcohol intake: current (1-2 BEERS DAILY ) Alcohol intake frequency: 0-2 drinks per day Cardiovascular Hx: HTN (Long history since age 20s) and Arrhythmias (AFIB NEWLY DIAGNOSED) Endocrine Hx: Diabetes (AGE 50'S ) Musculoskeletal Hx: Arthritis and Other (RIGHHT ANKLE FRACTURE 25 YEARS AGO 3 PINS IN IT ) Blood Disorder Hx: Hyperlipidemia Coding Level of Care Code Est Patient Level 1 Diagnoses Current use of anticoagulant therapy Z79.01 Assessment & Plan Assessment & Plan (1) Current use of anticoagulant therapy: Code(s): Z79.01 - continuous churn buttermaker (current) use of anticoagulants Category: Medical
== END 2024-10-03 14:50 | disposition home or self-care (01) ==
LOC: HO.ACS 14:27
PROVIDERS: PCP Physician Assistant; Visit Provider Internal Medicine Medical Oncology
DX: Z79.01 Long term (current) use of anticoagulants (principal)

== ENCOUNTER → 2024-10-03 14:27 | Outpatient (BNVA) | payer MEDICARE, SELFPAY | PROVIDERS: PCP Physician Assistant; Visit Provider Internal Medicine Medical Oncology | DX: I48.91 Unspecified atrial fibrillation (principal); Z79.01 Long term (current) use of anticoagulants; Z51.81 Encounter for therapeutic drug level monitoring | CPT/HCPCS: 85610; 99211 ==

== ENCOUNTER → 2024-10-12 14:31 | Outpatient (BNVA) | payer MEDICARE, SELFPAY | PROVIDERS: PCP Physician Assistant; Visit Provider Internal Medicine Medical Oncology | DX: I48.91 Unspecified atrial fibrillation (principal); Z79.01 Long term (current) use of anticoagulants; Z51.81 Encounter for therapeutic drug level monitoring | CPT/HCPCS: 85610; 99211 ==

== ENCOUNTER 2024-10-26 14:47 | Outpatient (AMB) | payer MEDICARE, SELFPAY ==
[2024-10-26 14:53] LABS: Prothrombin Time Whole Bld POC 32.6 sec (11.1-13.5); ~PT, ~INR - Anti Coag Clinic 2.7 (0.9-1.1)
--- NOTE | 2024-10-26 14:55 | MHC.OFFVISCO ---
Intake Intake Visit Reasons: Anticoagulation Allergies No Known Allergies Allergy (Verified 10/26/24 14:49) Medication List - Last Reconciled 10/26/24 by Yamilka Hernandez, RN alcohol swabs 0 pad topical DAILY aspirin (Adult Low Dose Aspirin) 81 mg PO DAILY atorvastatin 80 mg PO DAILY blood sugar diagnostic (Signal DataTouch Verio test strips) Use to check blood sugars once a day blood-glucose meter (SwiftStackuch Verio Meter) Use to check blood sugars once daily lancets (Signal DataTouch Delica Lancets) Use to check blood sugars once a day lisinopril 40 mg PO DAILY metformin ER 500 mg PO QPM metoprolol succinate ER 25 mg PO DAILY 90 days warfarin See Protocol 6MG X 1 DAY/ 4MG X 6 DAYS 2-3 TABS DAILY PER INR RESULT OF ANTICOAGULATION SERVICES 30 days Nursing Note INR: 2.7 in therapeutic range of 2-3 Medications and supplements reviewed No changes in health, diet, medications, or supplements, Denies any signs and symptoms of bleeding or bruising or clotting. Bleeding, bruising, clotting discussed Nutritional guidance given Dose: 4mg X 5 days abd 6mg X 2 days (Thu & Wed) F/U INR: 3 weeks Patient verbalizes understanding of instructions given Anti-Coag Initial Assessment Social Hx Patient Tobacco Use Status: Never used Tobacco alcohol intake: current (1-2 BEERS DAILY ) Alcohol intake frequency: 0-2 drinks per day Cardiovascular Hx: HTN (Long history since age 20s) and Arrhythmias (AFIB NEWLY DIAGNOSED) Endocrine Hx: Diabetes (AGE 50'S ) Musculoskeletal Hx: Arthritis and Other (RIGHHT ANKLE FRACTURE 25 YEARS AGO 3 PINS IN IT ) Blood Disorder Hx: Hyperlipidemia Coding Level of Care Code Est Patient Level 1 Diagnoses Current use of anticoagulant therapy Z79.01 Assessment & Plan Assessment & Plan (1) Current use of anticoagulant therapy: Code(s): Z79.01 - MCFP (current) use of anticoagulants Category: Medical
== END 2024-10-26 15:01 | disposition home or self-care (01) ==
LOC: HO.ACS 14:47
PROVIDERS: PCP Physician Assistant; Visit Provider Internal Medicine Medical Oncology
DX: Z79.01 Long term (current) use of anticoagulants (principal)

== ENCOUNTER → 2024-10-26 14:47 | Outpatient (BNVA) | payer MEDICARE, SELFPAY | PROVIDERS: PCP Physician Assistant; Visit Provider Internal Medicine Medical Oncology | DX: I48.91 Unspecified atrial fibrillation (principal); Z79.01 Long term (current) use of anticoagulants; Z51.81 Encounter for therapeutic drug level monitoring | CPT/HCPCS: 85610; 99211 ==

== ENCOUNTER 2024-11-25 09:58 | Outpatient (AMB) | payer MEDICARE, SELFPAY ==
--- OUTSIDE RECORDS SUMMARY | 2024-05-13 05:15 | XMS_ITS ---
Author Organization [facility] Address [address] [place] [address] Care Team Providers Care Ammonium Nitrate Crystallizer Name Role Phone Rohith Marin Primary Care Provider Unavailab Katelin Cramer Unavailable [phone] Polanco Encounters Encounter Location Date Provider Diagnosis [facility] [address] [place] [address] 05/13/2024 Katelin Shi Plan Of Treatment Next Appt Details Provider Name:Katelin nguyen, 02/03/2025 08:30:00 AM, [address], [address], Progress Notes * Yemi DÍAZDOB: [birth year] (79 yo M)Acc No.[id number]:05/13/2024 Progress Note Patient: Yemi LEYVA Provider: Lyn Shi DPM :1945 A ge:78 Y S ex:Male Date:05/13/2024 Address:[address] [place], [place] [phone] Pcp:Rohith Marin Subjective: * Chief Complaints: * [...] 0 05/13/2024 Generated for René bradley/Sanya/Selma on: 0 11/25/2024 10:43 AM EDT
--- OUTSIDE RECORDS SUMMARY | 2024-05-20 06:00 | XMS_ITS ---
Author Organization [facility] Address [address] [place] [address] Care Team Providers Care Trailer Driver Name Role Phone Rohith Marin Primary Care Provider UnavailKatelin Leonard [phone] Encounters Encounter Location Date Provider Diagnosis [address] [address] 05/20/2024 Katelin Shi Plan Of Treatment Next Appt Details Provider Name:Katelin nguyen, 02/03/2025 08:30:00 AM, [facility] [address], [address], Progress Notes * Yemi DÍAZDOB: [birth year] (79 yo M)Acc No.[id number]:05/20/2024 Progress Note Patient: Yemi LEYVA Provider: Lyn Shi DPM :1945 A ge:78 Y S ex:Male Date:05/20/2024 Address:[address] [place], [place] [address] Pcp:Rohith Marin Subjective: * Chief Complaints: * [...] 0 05/20/2024 Generated for René bradley/Sanya/Selma on: 0 11/25/2024 10:43 AM EDT
--- OUTSIDE RECORDS SUMMARY | 2024-08-09 11:30 | XMS_ITS ---
Author Organization [facility] Address [address] [place] [address] Care Team Providers Care Speech Clinician Name Role Phone Rohith Marin Primary Care Provider Unavailab Katelin Cramer [phone] Encounters Encounter Location Date Provider Diagnosis [address] [address] 08/09/2024 Katelin Shi Plan Of Treatment Next Appt Details Provider Name:Katelin nguyen, 02/03/2025 08:30:00 AM, [facility] [address], [address], Progress Notes * Yemi DÍAZDOB: [birth year] (79 yo M)Acc No.[id number]:08/09/2024 Progress Note Patient: Yemi LEYVA Provider: Lyn Shi DPM :1945 A ge:79 Y S ex:Male Date:08/09/2024 Address:[address] [place] [address] Pcp:Rohith Marin Subjective: * Chief Complaints: * [...] 0 08/09/2024 Generated for René bradley/Sanya/Selma on: 0 11/25/2024 10:43 AM EDT
[2024-11-25 10:03] LABS: Prothrombin Time Whole Bld POC 30.0 sec (11.1-13.5); ~PT, ~INR - Anti Coag Clinic 2.5 (0.9-1.1)
--- NOTE | 2024-11-25 10:04 | MHC.OFFVISCO ---
Intake Intake Visit Reasons: Anticoagulation Allergies No Known Allergies Allergy (Verified 11/25/24 09:58) Medication List - Last Reconciled 11/25/24 by Yamilka Hernandez, RN alcohol swabs 0 pad topical DAILY aspirin (Adult Low Dose Aspirin) 81 mg PO DAILY atorvastatin 80 mg PO DAILY blood sugar diagnostic (S&N AirofloTouch Verio test strips) Use to check blood sugars once a day blood-glucose meter (BBS Technologiesuch Verio Meter) Use to check blood sugars once daily lancets (S&N AirofloTouch Delica Lancets) Use to check blood sugars once a day lisinopril 40 mg PO DAILY metformin ER 500 mg PO QPM metoprolol succinate ER 25 mg PO DAILY 90 days warfarin See Protocol 6MG X 1 DAY/ 4MG X 6 DAYS 2-3 TABS DAILY PER INR RESULT OF ANTICOAGULATION SERVICES 30 days Nursing Note INR: 2.5 in therapeutic range of 2-3 Medications and supplements reviewed No changes in health, diet, medications, or supplements, Denies any signs and symptoms of bleeding or bruising or clotting. Bleeding, bruising, clotting discussed Nutritional guidance given Dose: 4mg X 5 days and 6mg X 2 days F/U INR: 5 weeks Patient verbalizes understanding of instructions with read back given Anti-Coag Initial Assessment Social Hx Patient Tobacco Use Status: Never used Tobacco alcohol intake: current (1-2 BEERS DAILY ) Alcohol intake frequency: 0-2 drinks per day Cardiovascular Hx: HTN (Long history since age 20s) and Arrhythmias (AFIB NEWLY DIAGNOSED) Endocrine Hx: Diabetes (AGE 50'S ) Musculoskeletal Hx: Arthritis and Other (RIGHHT ANKLE FRACTURE 25 YEARS AGO 3 PINS IN IT ) Blood Disorder Hx: Hyperlipidemia Coding Level of Care Code Est Patient Level 1 Diagnoses Current use of anticoagulant therapy Z79.01 Assessment & Plan Assessment & Plan (1) Current use of anticoagulant therapy: Code(s): Z79.01 - penitentiary (current) use of anticoagulants Category: Medical
--- OUTSIDE RECORDS SUMMARY | 2024-11-25 10:44 | XMS_ITS | Patient Health Record ---
Author Organization [facility] Address [address] [place] [address] Care Team Providers Care Campus Administrative Assistant Name Role Phone Rohith Marin Primary Care Provider Unavailab Katelin Cramer Unavailable [phone] Benedict Huffman Unavailable [phone] Allergies Allergen (clinical drug ingredient) Drug/Non Drug Allergy documented on EMR Reaction Allergy Type Onset Date Status Penicillin Rash Drug Allergy Active Results Component Value Reference Range Notes HEMOGLOBIN A1C (GLYCOHEMOGLO BIN) Reviewed date:07/05/2024 09:05:53 AM Interpretation: Performing Lab: Notes/Report: HEMOGLOBIN A1C % (HH) 6.7 Reason For Referral No Information Medications Medication SIG (Take, Route, Frequency, Duration) Notes Start Date End Date Status metFORMIN HCl Active Extra Depth Diabetic Shoes with 3 Pair Custom heat-molded multi-density innersoles for 1 year Dx: A ctive Extra Depth Orthopedic Shoes (1 Pair) with Customized Heat Molded Multidensity Innersoles (3 Pair) as directed Dx: IDDM/Polyneuropathy (E10.42), Hammertoe Foot Deformity (M20.41,M20.42), Preulcerative Skin Lesion(s) (L85.1) 11/04/2024 Active Extra Depth Diabetic Shoes with 3 Pair Custom heat-molded multi-density innersoles for 1 year Dx: 06/12/2020 N ot-Taking Walking Boot/Pneumatic As directed Wear Daily; Duration: Until further notice 01/11/2021 Not-Taking Work Note . . . disabled from wo rk until further notice 01/11/2021 Not-Taking Jantoven 2 MG Oral; Duration: 32 Days Active Aspir-81 Active Atorvastatin Calcium 80 MG 1 tablet Orally Once a day; Duration: 30 day(s) Active Lisinopril 30 MG 1 tablet Orally Once a day; Duration: 30 day(s) Active Doxycycline Monohydrate 100 MG 1 capsule Orally Once a day; Duration: 10 days 01/11/2021 Not-Takin g Immunizations Vaccine Route Administration Date Status Comme nts Influenza Unknown 02/08/2024 Administered COVID-19 Jairo & Jairo/Martin Unknown 01/08/2024 A dministered Social History Tobacco Use: Social History Observation Description Date Details (start date - stop date) Never Smoker NA - NA Tobacco use other than smoking: Question Answer Notes Are you an other tobacco user? No Tobacco Control (Standard) Question Answer Notes Tobacco use: Nonsmoker Additional Findings: Tobacco non-user Current no nsmoker AUDIT-C (Standard) Question Answer Notes Did you have a drink contain ing alcohol in the past year? Yes How often did you have a dri nk containing alcohol in the past year? 2 to 3 times a week (3 points) How many drinks did you have on a typical day when you were drinking in the past year? 1 or 2 drinks (0 point) How often did you have six o r more drinks on one occasion in the past year? Less than monthly (1 point) Points 4 Interpretation Positive Problems Problem Type SNOMED Code ICD Code Onset Dates Problem Status W/U Status Risk Notes Problem Acquired hammer toe of right foot (4081723302013568 ) Other hammer toe(s) (acquired), right foot (M20.41) Active confirmed Problem Acquired hammer toe of left foot (0364865614250755 ) Other hammer toe(s) (acquired), left foot (M20.42) Active confirmed Problem Polyneuropathy due to diabetes mellitus type I (099168201) 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 confirmed Problem Acquired hallux valgus (37937904) Hallux valgus (acquired), right foot (M20.11) Active confirmed Problem Polyneuropathy due to type 2 diabetes mellitus (724451264) Type 2 diabetes mellitus with diabetic polyneuropathy (E11.42) Active confirmed Vital Signs Heart Rate 76 /min 11/04/2024 Blood pressure diastolic 92 mm Hg 11/04/2024 Height 6ft 1in in 11/04/2024 Blood pressure systolic 142 mm Hg 11/04/2024 Weight 240 lbs 11/04/2024 BMI 31.66 kg/m2 11/04/2024 Procedures Procedure Date Ordered Date Performed Result Body Sit e 13970-DTSOMUH NAIL, 6 OR MORE 07/05/2024 N/A 40123-KTGX SKIN LESIONS, OVER 4 07/05/2024 N/A 78591-YHCBEQM NAIL, 6 OR MORE 11/04/2024 N/A 04817-NPFM SKIN LESIONS, OVER 4 11/04/2024 N/A Encounters Encounter Location Date Provider Diagnosis [address] [address] 11/27/2023 Benedict Huffman Type 2 diabetes mellitus with diabetic polyneuropathy E11.42 ; Pain in right toe(s) M79.674 ; Tinea unguium B35.1 ; Pain in left toe(s) M79.675 ; Hallux valgus (acquired), right foot M20.11 and Ingrowing nail L60.[address] [address] 07/05/2024 Katelin Shi Type 2 diabetes mellitus with diabetic polyneuropathy E11.42 and Tinea unguium B35.[address] [address] 11/04/2024 Katelin Shi Other hammer toe(s) (acquired), right foot M20.41 ; Other hammer toe(s) (acquired), left foot M20.42 ; Type 2 diabetes mellitus with diabetic polyneuropathy E11.42 and Tinea unguium B35.[address] [address] 11/25/2024 Katelin Shi Assessments Encounter Date Diagnosis (ICD Code) Assessment Notes Treatment Notes Treatment Clinical Notes Section Notes 11/27/2023 Type 2 diabetes mellitus with diabetic polyneuropathy (ICD-10 - E11.42) 07/05/2024 Type 2 diabetes mellitus with diabetic polyneuropathy (ICD-10 - E11.42) 07/05/2024 Tinea unguium (ICD-10 - B35.1) 11/04/2024 Other hammer toe(s) (acquired), right foot (ICD-10 - M20.41) Patient Educated with: DIABETIC FOOT CARE INSTRUCTIONS. pdf (DIABETIC FOOT CARE INSTRUCTIONS. pdf) 11/04/2024 Other hammer toe(s) (acquired), left foot (ICD-10 - M20.42) 11/27/2023 Pain in right toe(s) (ICD-10 - M79.674) 11/27/2023 Tinea unguium (ICD-10 - B35.1) 11/04/2024 Type 2 diabetes mellitus with diabetic polyneuropathy (ICD-10 - E11.42) 11/04/2024 Tinea unguium (ICD-10 - B35.1) 11/27/2023 Pain in left toe(s) (ICD-10 - M79.675) 11/27/2023 Hallux valgus (acquired), right foot (ICD-10 - M20.11) 11/27/2023 Ingrowing nail (ICD-10 - L60.0) Plan Of Treatment Pending Test Test Name Order Date X ray : Foot, right 3V 02/01/2021 52676-JWVVQOB NAIL, 6 OR MORE 07/05/2024 48910-ESWXEHK NAIL, 6 OR MORE 11/04/2024 58507-PEXV SKIN LESIONS, OVER 4 11/05/19 25 23820-MNSC SKIN LESIONS, OVER 4 07/06/19 25 09959-DWND SKIN LESIONS, OVER 4 07/06/19 22 14652-BVYE SKIN LESIONS, OVER 4 06/13/19 21 61432-HJGF SKIN LESIONS, OVER 4 09/12/19 21 79276-ZEAF SKIN LESIONS, OVER 4 01/12/20 21 14590-GJLZKKCO OF HEMATOMA/FLUID 023 27371-HHFYBAXO OF HEMATOMA/FLUID 021 Next Appt Details Provider Name:Katelin Ronny nguyen, 02/03/2025 08:30:00 AM, [address] [address], [place], [address], Insurance Providers Payer Name Payer Address Payer Phone Subscriber Number Group Number Insured Name Patient Relationship to Insured Coverage Start Date Coverage End Date [employer] Medicare Adv-[id number] [address] [address] [place] [id number] [id number] Yemi Díaz Self - patient is the insured Medical (General) History Medical History History ICD Code Broken bones Chicken pox Diabetes mellitus Gout High blood pressure Joint implants/screws Measles Mumps Surgical History Surgery Date(Month/Year) ankle surgery 04/30/2009 Carpal Tunnel 08/28/22 Hospitalization History Reason Date(Month/Year)
== END 2024-11-25 10:08 | disposition home or self-care (01) ==
LOC: HO.ACS 09:58
PROVIDERS: PCP Physician Assistant; Visit Provider Internal Medicine Medical Oncology
DX: Z79.01 Long term (current) use of anticoagulants (principal)

== ENCOUNTER → 2024-11-25 09:58 | Outpatient (BNVA) | payer MEDICARE, SELFPAY | PROVIDERS: PCP Physician Assistant; Visit Provider Internal Medicine Medical Oncology | DX: Z51.81 Encounter for therapeutic drug level monitoring (principal); Z79.01 Long term (current) use of anticoagulants | CPT/HCPCS: 85610; 99211 ==

== ENCOUNTER 2025-01-02 14:24 | Outpatient (AMB) | payer MEDICARE, SELFPAY ==
--- OUTSIDE RECORDS SUMMARY | 2024-05-13 05:15 | XMS_ITS ---
Author Organization [facility] Address [address] [place] [address] Care Team Providers Care Scallop Cutter Name Role Phone Rohith Marin Primary Care Provider Unavailab Katelin Cramer Unavailable [phone] Polanco Encounters Encounter Location Date Provider Diagnosis [facility] [address] [place] [address] 05/13/2024 Katelin Shi Plan Of Treatment Next Appt Details Provider Name:Katelin nguyen, 02/03/2025 08:30:00 AM, [address], [address], Progress Notes * Yemi DÍAZDOB: [birth year] (79 yo M)Acc No.[id number]:05/13/2024 Progress Note Patient: Ymei LEYVA Provider: Lyn Shi DPM :1945 A ge:78 Y S ex:Male Date:05/13/2024 Address:[address] [place], [place] [address] Pcp:Rohith Marin Subjective: * Chief Complaints: * [...] 05/13/2024 Generated for René bradley/Sanya/Selma on: 1 04:52 PM EDT
--- OUTSIDE RECORDS SUMMARY | 2024-05-20 06:00 | XMS_ITS ---
Author Organization [facility] Address [address] [place] [address] Care Team Providers Care Nutrition Assistant Name Role Phone Rohith Marin Primary Care Provider UnavailKatelin Leonard [phone] Encounters Encounter Location Date Provider Diagnosis [address] [address] 05/20/2024 Katelin Shi Plan Of Treatment Next Appt Details Provider Name:Katelin nguyen, 02/03/2025 08:30:00 AM, [facility] [address], [address], Progress Notes * Yemi DÍAZDOB: [birth year] (79 yo M)Acc No.[id number]:05/20/2024 Progress Note Patient: Yemi LEYVA Provider: Lyn Shi DPM :1945 A ge:78 Y S ex:Male Date:05/20/2024 Address:[address] [place], [place] [address] Pcp:Rohith Marin Subjective: * Chief Complaints: * [...] 05/20/2024 Generated for René bradley/Sanya/Selma on: 1 04:52 PM EDT
--- OUTSIDE RECORDS SUMMARY | 2024-08-09 11:30 | XMS_ITS ---
Author Organization [facility] Address [address] [place] [address] Care Team Providers Care Crop Production Advisor Name Role Phone Rohith Marin Primary Care Provider Unavailab Katelin Cramer [phone] Encounters Encounter Location Date Provider Diagnosis [address] [address] 08/09/2024 Katelin Shi Plan Of Treatment Next Appt Details Provider Name:Katelin nguyen, 02/03/2025 08:30:00 AM, [facility] [address], [address], Progress Notes * Yemi DÍAZDOB: [birth year] (79 yo M)Acc No.[id number]:08/09/2024 Progress Note Patient: Yemi LEYVA Provider: Lyn Shi DPM :1945 A ge:79 Y S ex:Male Date:08/09/2024 Address:[address] [place] [address] Pcp:Rohith Marin Subjective: * Chief Complaints: * [...] 08/09/2024 Generated for René bradley/Sanya/Selma on: 1 04:52 PM EDT
[2025-01-02 14:41] LABS: Prothrombin Time Whole Bld POC 33.6 sec (11.1-13.5); ~PT, ~INR - Anti Coag Clinic 2.8 (0.9-1.1)
--- NOTE | 2025-01-02 14:49 | MHC.OFFVISCO ---
Intake Intake Visit Reasons: Anticoagulation Allergies No Known Allergies Allergy (Verified 01/02/25 14:34) Medication List - Last Reconciled 01/02/25 by Tala Reyes RN alcohol swabs 0 pad topical DAILY aspirin (Adult Low Dose Aspirin) 81 mg PO DAILY atorvastatin 80 mg PO DAILY blood sugar diagnostic (Contour Plus Test Strip) As directed- once daily blood-glucose meter (Contour Plus Blue Meter) As directed- once daily [Diabetic shoes insert/insoles As directed] lancets ([employer] Lancets) Use to check blood sugars once a day lisinopril 40 mg PO DAILY metformin ER 500 mg PO QPM metoprolol succinate ER 25 mg PO DAILY 90 days warfarin See Protocol 6MG X 1 DAY/ 4MG X 6 DAYS 2-3 TABS DAILY PER INR RESULT OF ANTICOAGULATION SERVICES 30 days Nursing Note INR: 2.8 in therapeutic range Medications and supplements reviewed No changes in diet, medications, or supplements, Increase in bruising/bleeding on hands and lower arms when he bumps them - has bandaid on and few small scabs and lower arm brusing Bleeding, bruising, clotting discussed Nutritional guidance given Dose: decrease weekly dose 6mg x 1 day/ 4mg x 6 days F/U INR: 2 weeks Patient verbalizes understanding of instructions given Anti-Coag Initial Assessment Social Hx Patient Tobacco Use Status: Never used Tobacco alcohol intake: current (1-2 BEERS DAILY ) Alcohol intake frequency: 0-2 drinks per day Cardiovascular Hx: HTN (Long history since age 20s) and Arrhythmias (AFIB NEWLY DIAGNOSED) Endocrine Hx: Diabetes (AGE 50'S ) Musculoskeletal Hx: Arthritis and Other (RIGHHT ANKLE FRACTURE 25 YEARS AGO 3 PINS IN IT ) Blood Disorder Hx: Hyperlipidemia Coding Level of Care Code Est Patient Level 1 Diagnoses Current use of anticoagulant therapy Z79.01 Results AMB INR Fingerstick AMB INR Fingerstick 2.8 Last Edit by Tala Reyes RN on 01/02/25 14:42 manual entry Assessment & Plan Assessment & Plan (1) Current use of anticoagulant therapy: Code(s): Z79.01 - FDC (current) use of anticoagulants Category: Medical
--- OUTSIDE RECORDS SUMMARY | 2025-01-02 16:52 | XMS_ITS | Patient Health Record ---
[facility] Address [address] [place] [address] Care Team Providers Care Assurance Services Manager Health Care Name Role Phone Rohith Marin Primary Care Provider UnavailKatelin Leonard Unavailable [phone] Allergies Allergen (clinical drug ingredient) Drug/Non Drug [...] Once a day; Duration: 10 days 01/11/2021 Not-Christos g Immunizations Vaccine Route Administration Date Status [...] Problem Acquired hammer toe of right foot (6033360000314113 ) Other hammer toe(s) (acquired), right foot (M20.41) Active confirmed Problem Acquired hammer toe of left foot (0189784134904625 ) Other hammer toe(s) (acquired), left foot (M20.42) Active confirmed Problem Polyneuropathy due to diabetes mellitus type I (104833392) 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 confirmed Problem Acquired hallux valgus (70138513) Hallux valgus (acquired), right foot (M20.11) Active confirmed Problem Polyneuropathy due to type 2 diabetes mellitus (483603821) Type 2 diabetes mellitus with diabetic polyneuropathy (E11.42) Active confirmed Vital Signs Heart Rate 76 /min 11/04/2024 Blood pressure diastolic 92 mm Hg 11/04/2024 Height 6ft 1in in 11/04/2024 Blood pressure systolic 142 mm Hg 11/04/2024 Weight 240 lbs 11/04/2024 BMI 31.66 kg/m2 11/04/2024 Procedures Procedure Date Ordered Date Performed Result Body Sit e 13054-OEGISKJ NAIL, 6 OR MORE 07/05/2024 N/A 80156-EBHD SKIN LESIONS, OVER 4 07/05/2024 N/A 02930-DEPFCKX NAIL, 6 OR MORE 11/04/2024 N/A 85719-TVLR SKIN LESIONS, OVER 4 11/04/2024 N/A Encounters Encounter Location Date Provider Diagnosis [address] [address] 07/05/2024 Katelin Shi Type 2 diabetes mellitus with diabetic polyneuropathy E11.42 and Tinea unguium B35.[address] [address] 11/04/2024 Katelin Shi Other hammer toe(s) (acquired), right foot M20.41 ; Other hammer toe(s) (acquired), left foot M20.42 ; Type 2 diabetes mellitus with diabetic polyneuropathy E11.42 and Tinea unguium B35.[address] [address] 11/25/2024 Katelin Shi Assessments Encounter Date Diagnosis (ICD Code) Assessment Notes Treatment Notes Treatment Clinical Notes Section Notes 07/05/2024 Type 2 diabetes mellitus with diabetic polyneuropathy (ICD-10 - E11.42) 07/05/2024 Tinea unguium (ICD-10 - B35.1) 11/04/2024 Other hammer toe(s) (acquired), right foot (ICD-10 - M20.41) Patient Educated with: DIABETIC FOOT CARE INSTRUCTIONS. pdf (DIABETIC FOOT CARE INSTRUCTIONS. pdf) 11/04/2024 Other hammer toe(s) (acquired), left foot (ICD-10 - M20.42) 11/04/2024 Type 2 diabetes mellitus with diabetic polyneuropathy (ICD-10 - E11.42) 11/04/2024 Tinea unguium (ICD-10 - B35.1) Plan Of Treatment Pending Test Test Name Order Date X ray : Foot, right 3V 02/01/2021 14959-HCABWPG NAIL, 6 OR MORE 07/05/2024 76204-JOTUAVB NAIL, 6 OR MORE 11/04/2024 72821-OXZJ SKIN LESIONS, OVER 4 11/05/19 25 33775-EPIT SKIN LESIONS, OVER 4 09/12/19 21 87720-HDFC SKIN LESIONS, OVER 4 07/06/19 25 86922-ETHZ SKIN LESIONS, OVER 4 07/06/19 22 54910-RGDN SKIN LESIONS, OVER 4 06/13/19 21 79760-DDTN SKIN LESIONS, OVER 4 01/12/20 21 85346-ITEMRZGT OF HEMATOMA/FLUID 023 41666-EGCVBKDP OF HEMATOMA/FLUID 021 Next Appt Details Provider Name:Katelin Jefferson patrick, 02/03/2025 08:30:00 AM, [address] [facility], [place] [address], [place], [address], Insurance Providers Payer Name Payer Address Payer Phone Subscriber Number Group Number Insured Name Patient Relationship to Insured Coverage Start Date Coverage End Date [employer] Medicare Adv-[id number] [address] [address] [place] [address] [phone] [id number] Yemi Díaz Self - patient is the insured Medical (General) History Medical History History ICD Code Broken bones Chicken pox Diabetes mellitus Gout High blood pressure Joint implants/screws Measles Mumps Surgical History Surgery Date(Month/Year) ankle surgery 04/30/2009 Carpal Tunnel 08/28/22 Hospitalization History Reason Date(Month/Year)
== END 2025-01-02 14:52 | disposition home or self-care (01) ==
LOC: HO.ACS 14:24
PROVIDERS: PCP Physician Assistant; Visit Provider Internal Medicine Medical Oncology
DX: Z79.01 Long term (current) use of anticoagulants (principal)

== ENCOUNTER → 2025-01-02 14:24 | Outpatient (BNVA) | payer MEDICARE, SELFPAY | PROVIDERS: PCP Physician Assistant; Visit Provider Internal Medicine Medical Oncology | DX: Z51.81 Encounter for therapeutic drug level monitoring (principal); Z79.01 Long term (current) use of anticoagulants | CPT/HCPCS: 85610; 99211 ==

== ENCOUNTER 2025-01-12 08:17 | Outpatient (AMB) | payer MEDICARE, SELFPAY ==
--- OUTSIDE RECORDS SUMMARY | 2023-11-06 06:00 | XMS_ITS ---
Author Organization [facility] Address [address] [place] [address] Care Team Providers Care Chief Specialist Leed Name Role Phone Rohith Marin Primary Care Provider Unavailab Katelin Cramer Unavailable [phone] Benedict Lindsey Unavailable [phone] Encounters Encounter Location Date Provider Diagnosis [address] [address] 11/06/2023 Benedict Lindsey Plan Of Treatment Next Appt Details Provider Name:Katelin nguyen, 02/03/2025 08:30:00 AM, [address] [place] [address], [address], Progress Notes * Yemi DÍAZDOB: [birth year] (79 yo M)Acc No.[id number]:11/06/2023 Progress Note Patient: Yemi LEYVA Provider: Brayan Huffman DPM :1945 A ge:78 Y S ex:Male Date:11/06/2023 Address:[address] [place] [address] Pcp:Rohith Mairn Subjective: * Chief Complaints: * * Medical [...] 0 11/06/2023 Generated for René bradley/Sanya/Selma on: 08:27 AM EDT
--- OUTSIDE RECORDS SUMMARY | 2024-05-13 05:15 | XMS_ITS ---
Author Organization [facility] Address [address] [place] [address] Care Team Providers Care Behavioral Sciences Instructor Name Role Phone Rohith Marin Primary Care Provider Unavailab Katelin Cramer Unavailable [phone] Polanco Encounters Encounter Location Date Provider Diagnosis [facility] [address] [place] [address] 05/13/2024 Katelin Shi Plan Of Treatment Next Appt Details Provider Name:Kateiln nguyen, 02/03/2025 08:30:00 AM, [address], [address], Progress Notes * Yemi DÍAZDOB: [birth year] (79 yo M)Acc No.[id number]:05/13/2024 Progress Note Patient: Yemi LEYVA Provider: Lyn Shi DPM :1945 A ge:78 Y S ex:Male Date:05/13/2024 Address:[address] [place], [place] [phone] Pcp:Rohith Marin Subjective: * Chief Complaints: * [...] 05/13/2024 Generated for René bradley/Sanya/Selma on: 1 08:27 AM EDT
--- OUTSIDE RECORDS SUMMARY | 2024-05-20 06:00 | XMS_ITS ---
Author Organization [facility] Address [address] [place] [address] Care Team Providers Care Custodial Manager Name Role Phone Rohith Marin Primary Care Provider UnavailKatelin Leonard [phone] Encounters Encounter Location Date Provider Diagnosis [address] [address] 05/20/2024 Katelin Shi Plan Of Treatment Next Appt Details Provider Name:Katelin nguyen, 02/03/2025 08:30:00 AM, [facility] [address], [address], Progress Notes * Yemi DÍAZDOB: [birth year] (79 yo M)Acc No.[id number]:05/20/2024 Progress Note Patient: Yemi LEYVA Provider: Lyn Shi DPM :1945 A ge:78 Y S ex:Male Date:05/20/2024 Address:[address] [place], [place] [phone] Pcp:Rohith Marin Subjective: * Chief Complaints: * [...] 05/20/2024 Generated for René bradley/Sanya/Selma on: 1 08:27 AM EDT
--- OUTSIDE RECORDS SUMMARY | 2024-08-09 11:30 | XMS_ITS ---
Author Organization [facility] Address [address] [place] [address] Care Team Providers Care Hardware Trainer Name Role Phone Rohith Marin Primary Care Provider Unavailab Katelin Cramer [phone] Encounters Encounter Location Date Provider Diagnosis [address] [address] 08/09/2024 Katelin Shi Plan Of Treatment Next Appt Details Provider Name:Katelin nguyen, 02/03/2025 08:30:00 AM, [facility] [address], [address], Progress Notes * Yemi DÍAZDOB: [birth year] (79 yo M)Acc No.[id number]:08/09/2024 Progress Note Patient: Yemi LEYVA Provider: Lyn Shi DPM :1945 A ge:79 Y S ex:Male Date:08/09/2024 Address:[address] [place] [address] Pcp:Rohith Marin Subjective: * Chief Complaints: * [...] 08/09/2024 Generated for René bradley/Sanya/Selma on: 1 08:28 AM EDT
[2025-01-12 08:27] VITALS: BP 130/80; PULSE 79; BMI 31.2
--- NOTE | 2025-01-12 08:27 | MHC.OFFVIS ---
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 Lancets) Use to check blood sugars once a day lisinopril 40 mg PO DAILY metformin ER 500 mg PO QPM metoprolol succinate ER 25 mg PO DAILY 90 days warfarin See Protocol 6MG X 1 DAY/ 4MG X 6 DAYS 2-3 TABS DAILY PER INR RESULT OF ANTICOAGULATION SERVICES 30 days HPI Comments Details: The patient is a 79-year-old male presenting with atrial fibrillation. He has no previous history of myocardial infarction or coronary stents and was referred following an abnormal electrocardiogram showing atrial fibrillation. He is currently on warfarin therapy and denies symptoms such as chest pain or palpitations. The patient has a history of hypertension and diabetes mellitus, managed with medication. He adheres to his medication regimen without significant side effects. He consumes alcohol occasionally and works part-time without any activity limitations. [facility] Medical History Diabetes mellitus Hyperlipidemia Hypertension Surgical History History of ankle surgery Family History Mother No problems noted. Father No problems noted. Social History Housing: House Housing Other:: HAS A RAMP LIVES WITH SHE FUNCTIONABLE Alcohol intake: current (1-2 BEERS DAILY ) Alcohol intake frequency: 0-2 drinks per day Patient Tobacco Use Status: Never used Tobacco e-Cigarette/Vaping Use: Never Used Second Hand Smoke Exposure: No service: No Current occupational status: employed and retired Current occupation: WORK [employer] TE[employer] Current occupational exposures/hazards: Yes Cognitive needs: No Hearing needs: No Vision needs: Yes Review of Systems Const Denies chills, Denies fatigue, Denies fever(s), Denies frequent falls, Denies weakness, Denies weight gain and Denies weight loss ENT Denies dizziness Card Denies chest pain, Denies leg edema, Denies lightheadedness, Denies palpitations, Denies dyspnea, Denies dyspnea on exertion and Denies orthopnea Resp Denies cough, Denies dyspnea and Denies dyspnea on exertion GI Denies bloating and Denies change in bowel habits Musc Denies muscle weakness, Denies numbness and Denies tingling Neuro Denies dizziness, Denies frequent falls, Denies numbness, Denies tingling and Denies weakness Endo Denies fatigue and Denies palpitations Physical Exam Vital Signs: Last Vital Signs Pulse 79 01/12/25 08:27 BP 130/80 01/12/25 08:27 BMI result Body Mass Index 31.2 Const General: comfortable and no acute distress Orientation/consciousness: patient oriented x3 HEENT Other: Unremarkable Head: Yes normal to inspection Neck Neck: Yes normal visual inspection Chest Chest palpation & inspection: normal inspection of the chest Resp Auscultation: clear to auscultation bilaterally Cardio Palpation: normal PMI Heart sounds: S1 normal heart sound present, S2 normal heart sound present, no gallops, no murmurs and no rubs GI Palpation (GI): Soft to palpation Back/Spine/Pelvis Other: unremarkable Skin General skin exam: no rashes or lesions noted Neuro General: patient oriented x3 Extrem General: Yes normal to inspection Psych Mental Status: mental status grossly normal Office Procedures EKG Details: EKG with atrial fibrillation at 79/Min; leftward axis; left anterior fascicular block; [place]. [address]-Mmtauvwtlescujxao, Complete Assessment & Plan Assessment & Plan (1) Persistent atrial fibrillation: Code(s): I48.19 - Other persistent atrial fibrillation Category: Medical Plan: Clinically asymptomatic. Rate controlled with metoprolol. On warfarin as it seems there is a cost issue with other anticoagulants. We will get an echocardiogram and Holter monitor. (2) Hypertension: Code(s): I10 - Essential (primary) hypertension Category: Medical Qualifiers: Hypertension type: primary hypertension Qualified Code(s): I10 - Essential (primary) hypertension Plan: Listed to be on lisinopril 40 mg daily. Blood pressure seems stable. (3) Diabetes mellitus: Code(s): E11.9 - Type 2 diabetes mellitus without complications Category: Medical Qualifiers: Diabetes mellitus type: type 2 Diabetes mellitus senior care insulin use: without senior care use Diabetes mellitus complication status: without complication Qualified Code(s): E11.9 - Type 2 diabetes mellitus without complications Plan: On metformin. Hemoglobin A1c is 6.2%. Plan Discussion Notes I discussed with the patient the nature of atrial fibrillation and the importance of anticoagulation to prevent stroke risk. We reviewed the current use of warfarin and the potential for switching to other anticoagulants if insurance coverage changes. I explained the planned cardiac evaluations, including an echocardiogram and Holter monitor, to assess his heart's function and rhythm. Patient was informed and verbally consented to the use of an ambient scribe for clinic note documentation during this visit. Orders: Orders ECG 3 day holter monitor Today I48.19 - Other persistent atrial fibrillation CA echo transthoracic complete Today I48.19 - Other persistent atrial fibrillation Patient Instructions: - Continue taking warfarin as prescribed. - Attend scheduled cardiac evaluations, including echocardiogram and Holter monitor. - Report any new symptoms such as chest pain or difficulty breathing immediately. 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
--- OUTSIDE RECORDS SUMMARY | 2025-01-12 08:27 | XMS_ITS | Patient Health Record ---
Author [facility] Address [address] [place] [address] Care Team Providers Care Manufacturing Worker Name Role Phone Rohith Marin Primary Care Provider UnavailKatelin Leonard Unavailable [phone] Allergies Allergen (clinical drug ingredient) Drug/Non Drug [...] Problem Acquired hammer toe of right foot (1401636161286494 ) Other hammer toe(s) (acquired), right foot (M20.41) Active confirmed Problem Acquired hammer toe of left foot (0351631479217907 ) Other hammer toe(s) (acquired), left foot (M20.42) Active confirmed Problem Polyneuropathy due to diabetes mellitus type I (208295060) 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 confirmed Problem Acquired hallux valgus (98679145) Hallux valgus (acquired), right foot (M20.11) Active confirmed Problem Polyneuropathy due to type 2 diabetes mellitus (152182492) Type 2 diabetes mellitus with diabetic polyneuropathy (E11.42) Active confirmed Vital Signs Heart Rate 76 /min 11/04/2024 Blood pressure diastolic 92 mm Hg 11/04/2024 Height 6ft 1in in 11/04/2024 Blood pressure systolic 142 mm Hg 11/04/2024 Weight 240 lbs 11/04/2024 BMI 31.66 kg/m2 11/04/2024 Procedures Procedure Date Ordered Date Performed Result Body Sit e 88539-NFPEAHA NAIL, 6 OR MORE 07/05/2024 N/A 98658-HJOU SKIN LESIONS, OVER 4 07/05/2024 N/A 53208-KCQTBLH NAIL, 6 OR MORE 11/04/2024 N/A 70535-XUPV SKIN LESIONS, OVER 4 11/04/2024 N/A Encounters Encounter Location Date Provider Diagnosis [address] [address] 07/05/2024 Katelin Shi Type 2 diabetes mellitus with diabetic polyneuropathy E11.42 and Tinea unguium B35.[address] [address] 11/04/2024 Katelin Shi Other hammer toe(s) (acquired), right foot M20.41 ; Other hammer toe(s) (acquired), left foot M20.42 ; Type 2 diabetes mellitus with diabetic polyneuropathy E11.42 and Tinea unguium B35.[address] [address] 11/25/2024 Katelni Shi Assessments Encounter Date Diagnosis (ICD Code) [...] X ray : Foot, right 3V 02/01/2021 81163-AJYQATM NAIL, 6 OR MORE 07/05/2024 81358-GCUKMOH NAIL, 6 OR MORE 11/04/2024 06633-FLRD SKIN LESIONS, OVER 4 11/05/19 25 37536-UGTY SKIN LESIONS, OVER 4 07/06/19 25 12696-WIDE SKIN LESIONS, OVER 4 07/06/19 22 01755-XWWW SKIN LESIONS, OVER 4 06/13/19 21 59561-IFYM SKIN LESIONS, OVER 4 09/12/19 21 98702-UWQF SKIN LESIONS, OVER 4 01/12/20 21 45611-GBMLIRDP OF HEMATOMA/FLUID 023 37125-VQNQLYKW OF HEMATOMA/FLUID 021 Next Appt Details Provider Name:Katelin Jefferson patrick, 02/03/2025 08:30:00 AM, [address] [facility], [place] [address], [place], [address], Insurance Providers Payer Name Payer Address Payer Phone Subscriber Number Group Number Insured Name Patient Relationship to Insured Coverage Start Date Coverage End Date [employer] Medicare Adv-[id number] [address] [address] [place] [address] [phone] [id number] Yemi Díaz Self - patient is the insured Medical (General) History Medical History History ICD Code Broken bones Chicken pox Diabetes mellitus Gout High blood pressure Joint implants/screws Measles Mumps Surgical History Surgery Date(Month/Year) ankle surgery 04/30/2009 Carpal Tunnel 08/28/22 Hospitalization History Reason Date(Month/Year)
== END 2025-01-12 08:48 | disposition home or self-care (01) ==
LOC: HO.HCS 08:18
PROVIDERS: PCP Physician Assistant; Visit Provider Internal Medicine
DX: I48.19 Other persistent atrial fibrillation (principal); I10 Essential (primary) hypertension; E11.9 Type 2 diabetes mellitus without complications
CPT/HCPCS: 93010; 99204; G2211

== ENCOUNTER → 2025-01-12 08:17 | Outpatient (BNVA) | payer MEDICARE, SELFPAY | PROVIDERS: PCP Physician Assistant; Visit Provider Internal Medicine | DX: I48.19 Other persistent atrial fibrillation (principal); I10 Essential (primary) hypertension; E11.9 Type 2 diabetes mellitus without complications; I44.4 Left anterior fascicular block; R94.31 Abnormal electrocardiogram [ECG] [EKG] | CPT/HCPCS: 93005; 99202 ==

== ENCOUNTER 2025-01-16 14:20 | Outpatient (AMB) | payer MEDICARE, SELFPAY ==
[2025-01-16 14:26] LABS: Prothrombin Time Whole Bld POC 25.1 sec (11.1-13.5); ~PT, ~INR - Anti Coag Clinic 2.1 (0.9-1.1)
--- NOTE | 2025-01-16 14:34 | MHC.OFFVISCO ---
Intake Intake Visit Reasons: Anticoagulation Allergies No Known Allergies Allergy (Verified 01/16/25 14:21) Medication List - Last Reconciled 01/16/25 by Yamilka Hernandez, RN alcohol swabs 0 pad topical DAILY atorvastatin 80 mg PO DAILY blood sugar diagnostic (Contour Plus Test Strip) As directed- once daily blood-glucose meter (Contour Plus Blue Meter) As directed- once daily [Diabetic shoes insert/insoles As directed] lancets ([employer] Lancets) Use to check blood sugars once a day lisinopril 40 mg PO DAILY metformin ER 500 mg PO QPM metoprolol succinate ER 25 mg PO DAILY 90 days warfarin See Protocol 6MG X 1 DAY/ 4MG X 6 DAYS 2-3 TABS DAILY PER INR RESULT OF ANTICOAGULATION SERVICES 30 days Nursing Note INR: 2.1 in therapeutic range of 2-3 Medications and supplements reviewed No changes in health, diet, medications, or supplements, Denies any signs and symptoms of bleeding or bruising or clotting. Bleeding, bruising, clotting discussed Nutritional guidance given avoid greens today and to have a serving of reds today Dose: 4mg X 6 days and 6mg X 1 day F/U INR: 3 weeks Patient verbalizes understanding of instructions given Anti-Coag Initial Assessment Social Hx Patient Tobacco Use Status: Never used Tobacco alcohol intake: current (1-2 BEERS DAILY ) Alcohol intake frequency: 0-2 drinks per day Cardiovascular Hx: HTN (Long history since age 20s) and Arrhythmias (AFIB NEWLY DIAGNOSED) Endocrine Hx: Diabetes (AGE 50'S ) Musculoskeletal Hx: Arthritis and Other (RIGHHT ANKLE FRACTURE 25 YEARS AGO 3 PINS IN IT ) Blood Disorder Hx: Hyperlipidemia Coding Level of Care Code Est Patient Level 1 Diagnoses Current use of anticoagulant therapy Z79.01 Assessment & Plan Assessment & Plan (1) Current use of anticoagulant therapy: Code(s): Z79.01 - 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
== END 2025-01-16 14:36 | disposition home or self-care (01) ==
LOC: HO.ACS 14:20
PROVIDERS: PCP Physician Assistant; Visit Provider Internal Medicine Medical Oncology
DX: Z79.01 Long term (current) use of anticoagulants (principal)

== ENCOUNTER → 2025-01-16 14:20 | Outpatient (BNVA) | payer MEDICARE, SELFPAY | PROVIDERS: PCP Physician Assistant; Visit Provider Internal Medicine Medical Oncology | DX: I48.91 Unspecified atrial fibrillation (principal); Z51.81 Encounter for therapeutic drug level monitoring; Z79.01 Long term (current) use of anticoagulants | CPT/HCPCS: 85610; 99211 ==

== ENCOUNTER 2025-02-06 14:31 | Outpatient (AMB) | payer MEDICARE, SELFPAY ==
[2025-02-06 14:39] LABS: Prothrombin Time Whole Bld POC 23.9 sec (11.1-13.5); ~PT, ~INR - Anti Coag Clinic 2.0 (0.9-1.1)
--- NOTE | 2025-02-06 14:39 | MHC.OFFVISCO ---
Intake Intake Visit Reasons: Anticoagulation Allergies No Known Allergies Allergy (Verified 02/06/25 14:32) Medication List - Last Reconciled 02/06/25 by Tala Reyes RN alcohol swabs 0 pad topical DAILY atorvastatin 80 mg PO DAILY blood sugar diagnostic (Contour Plus Test Strip) As directed- once daily blood-glucose meter (Contour Plus Blue Meter) As directed- once daily [Diabetic shoes insert/insoles As directed] lancets ([employer] Lancets) Use to check blood sugars once a day lisinopril 40 mg PO DAILY metformin ER 500 mg PO QPM metoprolol succinate ER 25 mg PO DAILY 90 days warfarin See Protocol 6MG X 1 DAY/ 4MG X 6 DAYS 2-3 TABS DAILY PER INR RESULT OF ANTICOAGULATION SERVICES 30 days Nursing Note INR: 2.0 in therapeutic range Medications and supplements reviewed- warfarin dose decreased 3 weeks ago - he was having excessive bruising on his arms - then when he bumped them they bled. The bruises are definitely less No changes in health, diet, or supplements, Denies any signs and symptoms of bleeding or bruising or clotting. Bleeding, bruising, clotting discussed Nutritional guidance given - ok to have foods to help raise the INR a little such as orange and red fruits and vegetables Dose: keep same dose for now 6mg 1 day/ 4mg x 6 days F/U INR: 3 weeks Patient verbalizes understanding of instructions given Anti-Coag Initial Assessment Social Hx Patient Tobacco Use Status: Never used Tobacco alcohol intake: current (1-2 BEERS DAILY ) Alcohol intake frequency: 0-2 drinks per day Cardiovascular Hx: HTN (Long history since age 20s) and Arrhythmias (AFIB NEWLY DIAGNOSED) Endocrine Hx: Diabetes (AGE 50'S ) Musculoskeletal Hx: Arthritis and Other (RIGHHT ANKLE FRACTURE 25 YEARS AGO 3 PINS IN IT ) Blood Disorder Hx: Hyperlipidemia Coding Level of Care Code Est Patient Level 1 Diagnoses Current use of anticoagulant therapy Z79.01 Assessment & Plan Assessment & Plan (1) Current use of anticoagulant therapy: Code(s): Z79.01 - halfway (current) use of anticoagulants Category: Medical
== END 2025-02-06 14:53 | disposition home or self-care (01) ==
LOC: HO.ACS 14:31
PROVIDERS: PCP Physician Assistant; Visit Provider Internal Medicine Medical Oncology
DX: Z79.01 Long term (current) use of anticoagulants (principal)

== ENCOUNTER → 2025-02-06 14:31 | Outpatient (BNVA) | payer MEDICARE, SELFPAY | PROVIDERS: PCP Physician Assistant; Visit Provider Internal Medicine Medical Oncology | DX: Z79.01 Long term (current) use of anticoagulants (principal) | CPT/HCPCS: 85610; 99211 ==

== ENCOUNTER 2025-02-28 11:39 | Outpatient (AMB) | payer MEDICARE, SELFPAY ==
[2025-02-28 11:47] LABS: Prothrombin Time Whole Bld POC 47.0 sec (11.1-13.5); ~PT, ~INR - Anti Coag Clinic 3.9 (0.9-1.1)
--- NOTE | 2025-02-28 12:16 | MHC.OFFVISCO ---
Intake Intake Visit Reasons: Anticoagulation Allergies No Known Allergies Allergy (Verified 02/28/25 12:14) Medication List - Last Reconciled 02/28/25 by Yamilka Hernandez RN alcohol swabs 0 pad topical DAILY atorvastatin 80 mg PO DAILY blood sugar diagnostic (Contour Plus Test Strip) As directed- once daily blood-glucose meter (Contour Plus Blue Meter) As directed- once daily [Diabetic shoes insert/insoles As directed] lancets ([employer] Delica Lancets) Use to check blood sugars once a day lisinopril 40 mg PO DAILY metformin ER 500 mg PO QPM metoprolol succinate ER 25 mg PO DAILY 90 days warfarin See Protocol 6MG X 1 DAY/ 4MG X 6 DAYS 2-3 TABS DAILY PER INR RESULT OF ANTICOAGULATION SERVICES 30 days Nursing Note Pt to ER accompanied by . INR: 3.9 out of therapeutic range of 2-3 Pt states he fell 5 days ago and hit a cabinet with his left posterior lateral back. States he has a large bruise. Assessed the area and there is extensive bruising extending to the left groin and leg and across the left mid abd. The area of inpact on left back/side is also swollen and hard. It is warm to touch compared to the other areas of bruising. Pt states it is tender. He also has a small bruise around left eye. Pt states he hit his head too. Informed pt it is very concerning and he should be seen in the ER for further evaluation. Pt agreed. Medications or supplements: no changes Diet: no changes Dose: pt already took today's dose of warfarin. Instructed to hold tomorrow's dose and if discharged to home from the ER, instructed pt to call [facility] for further instructions regarding warfarin and next appointment date. F/U INR Date: 03/06/25?? Patient verbalizing understanding of instructions given. Pt brought to ER via w/c with . Anti-Coag Initial Assessment Social Hx Patient Tobacco Use Status: Never used Tobacco alcohol intake: current (1-2 BEERS DAILY ) Alcohol intake frequency: 0-2 drinks per day Cardiovascular Hx: HTN (Long history since age 20s) and Arrhythmias (AFIB NEWLY DIAGNOSED) Endocrine Hx: Diabetes (AGE 50'S ) Musculoskeletal Hx: Arthritis and Other (RIGHHT ANKLE FRACTURE 25 YEARS AGO 3 PINS IN IT ) Blood Disorder Hx: Hyperlipidemia Coding Level of Care Code Est Patient Level 1 Diagnoses Current use of anticoagulant therapy Z79.01 Results AMB INR Fingerstick AMB INR Fingerstick 3.9 Last Edit by Yamilka Hernandez RN on 02/28/25 11:47 interface delay Assessment & Plan Assessment & Plan (1) Current use of anticoagulant therapy: Code(s): Z79.01 - group home (current) use of anticoagulants Category: Medical
== END 2025-02-28 12:32 | disposition home or self-care (01) ==
LOC: HO.ACS 11:39
PROVIDERS: PCP Physician Assistant; Visit Provider Internal Medicine Medical Oncology
DX: Z79.01 Long term (current) use of anticoagulants (principal)

== ENCOUNTER 2025-02-28 12:03 | Emergency (ER) | payer MEDICARE, SELFPAY ==
--- NOTE | ~2025-02-28 | CT_ITS ---
EXAMINATION: CT HEAD WITHOUT IV CONTRAST HISTORY: fall, head strike, on AC. TECHNIQUE: Unenhanced helical CT of the head was performed per standard departmental protocol. Coronal and sagittal reformats of the head were also evaluated. One or more of the following techniques was used for dose reduction: Automated exposure control, adjustment of the mA and/or kV according to patient size, use of iterative reconstruction technique. DLP: 717 mGy-cm COMPARISON: There are no prior studies available for comparison. FINDINGS: BRAIN: There is no evidence of an extra-axial collection. There is no evidence of intra or extra-axial hemorrhage. The ventricles and extra-axial CSF spaces are prominent suggestive of mild generalized atrophy. There is nonspecific periventricular white matter disease. No mass, mass effect or infarct is seen. Atherosclerotic disease. SINUSES: The visualized paranasal sinuses are clear. The mastoid air cells and middle ear cavities are well pneumatized. ORBITS: The visualized orbits are unremarkable. BONES/SOFT TISSUES: The extracranial soft tissues are unremarkable. The calvarium is intact. No suspicious lytic or sclerotic lesions. CT/CT head/brain wo IV con IMPRESSION: No acute intracranial abnormality. Generalized atrophy and nonspecific periventricular white matter disease. Electronically signed by: Sadaf Montenegro MD 02/28/2025 02:21 PM [facility]
--- NOTE | ~2025-02-28 | CT_ITS ---
EXAMINATION: CT ABDOMEN PELVIS WITH IV CONTRAST, CT CHEST WITH IV CONTRAST INDICATION: fall, on AC, extensive bruising COMPARISON: There are no prior studies available for comparison.. TECHNIQUE: CT scan of the chest, abdomen and pelvis was performed following administration of 85 mL Omnipaque 350 using standard departmental protocol. Coronal and sagittal reformatted images were generated and reviewed. Oral contrast material was not administered at the request of the referring physician. This CT exam was performed with one or more of the following dose reduction techniques: automated exposure control, adjustment of the mA and/or kV according to patient size, use of iterative reconstruction technique. DLP: 1237 mGy-cm CHEST: THYROID: The thyroid is unremarkable. LUNGS: There are emphysematous changes bilaterally. There is scarring at the left lung base. The lungs are otherwise clear. MEDIASTINUM: There is no mediastinal lymphadenopathy. MARISSA: There is no hilar lymphadenopathy. CARDIOVASCULATURE: The heart is enlarged. 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 There is no pericardial effusion. The thoracic aorta is normal in caliber. DEGREE OF CORONARY CALCIFICATION: severe PLEURA: There is no pleural effusion. No pneumothorax. MAIN AIRWAYS: The mainstem bronchi and proximal branches are patent. AXILLA: There is no axillary lymphadenopathy. SOFT TISSUES: There is degenerative disc disease of the spine. No fracture is seen. BONES: The bones are intact. ABDOMEN: LIVER: The liver is normal in size and contour. No liver mass is identified. The hepatic and portal veins are patent. GALLBLADDER / BILE DUCTS: The gallbladder is unremarkable. There is no intra or extrahepatic biliary ductal dilatation. SPLEEN: The spleen is normal in size. No focal splenic lesion is identified. PANCREAS: The pancreas is unremarkable in appearance. ADRENAL GLANDS: Within normal limits. KIDNEYS/RETROPERITONEUM: No renal calculi are identified. There is no hydronephrosis. No renal masses are identified. LYMPH NODES: No abdominal or pelvic lymphadenopathy. VASCULATURE: The abdominal aorta demonstrates atherosclerotic calcification, but is normal in caliber. MESENTERY/PERITONEUM: No free fluid. No masses. There is no free intraperitoneal gas. STOMACH: There is a small hiatal hernia. The remainder of the stomach is collapsed. SMALL BOWEL: The small bowel is normal in caliber. COLON: There is extensive diverticulosis of the colon, without evidence of diverticulitis. APPENDIX: Normal. URINARY BLADDER/PELVIC ORGANS: The urinary bladder is unremarkable. The prostate is mildly enlarged. BONES / SOFT TISSUES: There is a left supragluteal hematoma measuring 11.1 x 5.1 x 8.3 cm. Mild infiltration of the fat of the left anterior abdominal wall may represent a soft tissue contusion. There is degenerative disc disease of the spine. The bones are intact. CT/CT abdomen pelvis w IV con IMPRESSION: 1. 11.1 x 5.1 x 8.3 cm left supragluteal hematoma. 2. Mild infiltration of the fat of the left anterior abdominal wall which may represent a soft tissue contusion. 3. Cardiomegaly. 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 Electronically signed by: Cem Andersen MD 02/28/2025 02:[address] [facility]
--- NOTE | ~2025-02-28 | XR_ITS ---
EXAMINATION: XR FEMUR, LEFT CLINICAL INFORMATION: pain, injury COMPARISON: None available. TECHNIQUE: AP and lateral views of the left femur were obtained. FINDINGS: No fracture, dislocation, or suspicious bone lesion. Normal alignment. No evidence of knee joint effusion. Mild osteoarthrosis noted in the left hip joint, and left knee joint. Soft tissues demonstrate diffuse vascular calcifications. XR/XR femur LT 2V IMPRESSION: No acute findings of the left femur. Electronically signed by: Yaya Rosenbaum MD 02/28/2025 01:51 PM [facility]
--- NOTE | ~2025-02-28 | CT_ITS ---
EXAMINATION: CT CERVICAL SPINE WITHOUT IV CONTRAST HISTORY: fall, head strike. TECHNIQUE: Helical CT of the cervical spine was performed per standard departmental protocol. Coronal and sagittal reformatted images were also evaluated. One or more of the following techniques was used for dose reduction: Automated exposure control, adjustment of the mA and/or kV according to patient size, use of iterative reconstruction technique. DLP: 517 mGy-cm COMPARISON: There are no prior studies available for comparison. FINDINGS: CERVICAL SPINE: There is slight head tilt to the left, curvature of the mid cervical spine to the right, and curvature of the lower cervical and upper thoracic spine to the left. There is mild 2 mm anterior subluxation of C4 with respect to C3 and C5. Bone alignment is otherwise normal. No fracture or dislocation. Disc space narrowing at C3-4. Mild degenerative spondylosis at C3-4 C5-6 and C6-7. Bilateral multilevel facet arthritis greatest at C3-4 and C4-5 on the left. Mild degenerative changes at the C1 dens articulation. BRAIN: The visualized portion of the brain is unremarkable. SINUSES: The visualized paranasal sinuses, mastoid air cells and middle ear cavities are unremarkable. LUNG APICES: The visualized lung apices are clear. SOFT TISSUES: Prevertebral soft tissues are normal. Atherosclerotic disease including significant bilateral carotid calcification. Bilateral tonsillar calcification. CT/CT cervical spine wo IV con IMPRESSION: No evidence of fracture or malalignment of the cervical spine. Degenerative changes. Electronically signed by: Sadaf Montenegro MD 02/28/2025 02:20 PM [facility]
[2025-02-28 12:08] VITALS: BP 109/68; PULSE 94; RESP 20; TEMP 36.4; O2SAT 97; BMI 30.7
--- NOTE | 2025-02-28 12:17 | ED_ITS ---
HPI - General Adult General Chief complaint: Fall Stated complaint: fall on 02/23 Time Seen by Provider: 02/28/25 12:17 Source: patient Mode of arrival: wheelchair Limitations: no limitations History of Present Illness ED Provider: Juana Meier PA-C HPI narrative: Patient is a 79 year old assigned male at with a history of atrial fib on Coumadin, DM, HLD, and HTN presenting to the emergency department today with left sided abdominal and buttock bruising after a fall. Patient states that on 02/23/2025 he had a mechanical fall landing on his left side. Patient states that he has been having bruising to the left side of his body and the Coumadin clinic staff was concerned about it so they recommended he come to the ER to be evaluated. Patient denies any other complaints at this time. Related Data Home Medications ?Medication ?Instructions ?Recorded ?Confirmed alcohol swabs 0 pad topical DAILY diabetes 04/24/20 02/28/25 mellitus Previous Rx's ?Medication ?Instructions ?Recorded lancets 33 gauge (OneTouch Delica #100 ea 06/15/20 Lancets) metformin 500 mg tablet,extended 500 mg PO QPM #90 tab s 02/27/24 release 24 hr lisinopril 40 mg tablet 40 mg PO DAILY #90 tabs 05/29 04/23 atorvastatin 80 mg tablet 80 mg PO DAILY #90 tabs 09/28 05/24 blood sugar diagnostic (Contour #50 ea 12/21/24 Plus Test Strip) blood-glucose meter (Contour Plus #1 ea 12/21/24 Blue Meter) Diabetic shoes insert/insoles #2 ea 12/28/24 metoprolol succinate 25 mg 25 mg PO DAILY 90 days #90 tabs 01/25/25 tablet,extended release 24 hr warfarin 2 mg tablet See Rx Instructions PO DAILY 30 02/24/25 days #90 tabs Allergies Allergy/AdvReac Type Severity Reaction Status Date / Time No Known Allergies Allergy Verified 02/28/25 12:14 Review of Systems 2 Constitutional: Constitutional: Reports as per HPI Eyes: Eyes: Reports as per HPI ENT: Reports as per HPI Cardiovascular: Cardiovascular: Reports as per HPI Respiratory: Respiratory: Reports as per HPI Gastrointestinal: Gastrointestinal: Reports as per HPI Genitourinary: Genitourinary: Reports as per HPI Musculoskeletal: Musculoskeletal: Reports as per HPI Integumentary/Breasts: Skin/Breast: Reports as per HPI Neurologic: Reports as per HPI Psychiatric: Psychiatric: Reports as per HPI Endocrine: Endocrine: Reports as per HPI Hematologic/Lymphatic: Hematologic/Lymphatic: Reports as per HPI Allergic/Immunologic: Allergic/Immunologic: Reports as per HPI PENDING SALE TO [facility] Past Medical History Attestation statement: The following information was validated with the patient. Source: old records reviewed and nursing notes reviewed Medical History Diabetes mellitus Hyperlipidemia Hypertension Surgical History History of ankle surgery Family History Family History Mother No problems noted. Father No problems noted. 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 Current occupational exposures/hazards: Yes Cognitive needs: No Hearing needs: No Vision needs: Yes Physical Exam ED Vital Signs: Vital Signs - 24 hr 02/28/25 12:08 Temperature 97.6 F Pulse Rate 94 Respiratory Rate 20 Blood Pressure 109/68 Pulse Oximetry 97 Oxygen Delivery Method Room Air BMI result Body Mass Index 30.7 Const General: cooperative, no acute distress, alert and awake Nutritional Appearance: well nourished Orientation/consciousness: patient oriented x3 HENMT Head: Yes normal to inspection and Yes atraumatic Ears: hearing grossly normal bilaterally and external ears normal General nose exam: Normal external nose present, no nasal discharge noted and no epistaxis Face and sinus: Yes normal facial exam, No abrasion and No laceration Mouth: Normal oral and palatal mucosa present, no drooling and no muffled voice Eyes General: appearance normal, both eyes and all related structures Periorbital: periorbital findings normal Eyelids: Yes eyelids normal Conjunctivae: conjunctivae normal Pupils: Equal, round and reactive pupils present EOM: EOMs intact bilaterally Neck Neck: Yes normal visual inspection and Yes full ROM Resp Effort & Inspection: normal respiratory effort and able to speak in complete sentences Skin Other: Neuro General: patient oriented x3, moves all extremities and CN's II-XI intact bilaterally Cranial nerves: Yes Equal, round and reactive pupils present Cognition (Neuro): normal cognition Extrem Other: bruising present to the dorsal aspect of the left femur General: Yes full ROM and Yes capillary refill normal Psych Appearance: grossly normal Mental Status: mental status grossly normal Affect: normal affect Attitude: cooperative Thought process: Normal thought process present Thought content: Normal thought content present Insight: Good insight present (Psych) Medications Administered Discontinued Medications Generic Name Dose Route Start Last Admin Trade Name Freq PRN Reason Stop Dose Admin Iohexol 100 ml 02/28/25 13:33 02/28/25 13:34 Iohexol 350 Mg/Ml 100 Ml Infus..Btl IV 02/28/25 13:34 85 ml ONCE ONE Administration Medical Decision Making Medical Decision Making MDM Narrative: Patient is a 79 year old assigned male at with a history of atrial fib on Coumadin, DM, HLD, and HTN presenting to the emergency department today with left sided abdominal and buttock bruising after a fall. Patient's physical exam was as noted in the physical exam portion of this note. Patient's blood work showed a WBC count of 11.7, hgb of 10.3, hct of 31.1, and INR of 3.5. Patient's left femur x-ray showed no acute process. Patient's CT head and CT c-spine showed no acute process. Patient's CT chest + abdomen/pelvis showed a 11.1 x 5.1 x 8.3 cm hematoma of the left supragluteal and mild infiltration of the fat of the left abdominal wall consistent with a soft tissue contusion. I spoke with my attending physician, Dr. Villanueva, who agreed with having the patient hold his 03/01/2025 coumadin dose and having him follow up with his INR clinic and his PCP. I explained my physical exam findings as well as all test results to the patient. I answered all questions asked by the patient. I stressed the importance of the patient taking his medication as directed (either prescribed or as the over the counter packaging recommends). I stressed the importance of the patient following up with his primary care provider. I stressed the importance of the patient returning to the emergency department immediately if his symptoms were to worsen or if he were to develop any dizziness, shortness of breath, difficulty breathing, chest pain, blurry vision, loss of vision, nausea, vomiting, abdominal pain, fever, chills, back pain, or any other complaints. Patient verbalized agreement and understanding with this treatment plan and discharge. Differential Diagnosis Differential Diagnoses: The differential diagnosis associated with the presentation includes Contusion Hematoma Admission/Observation Consideration of admission/observation: Escalation of care including admission/observation considered Patient would have been admitted to the hospital had his work up had any findings where hospital admission was appropriate and his clinical presentation warranted hospital admission. Lab Data [facility] Lab Attestation statement: I reviewed the patient's lab results. My interpretation of these results are in the [facility] Rationale portion of this note. 02/28/25 12:45 02/28/25 12:45 Labs: Lab Results 02/28/25 Range/Units 12:45 WBC 11.7 H (4.8-10.8) X10*3/uL RBC 3.60 L D (4.60-5.80) X10*6/uL Hgb 10.3 L D (14.0-18.0) g/dl Hct 31.1 L D (42.0-52.0) % MCV 86.4 (80.0-98.0) fL MCH 28.6 (27.0-33.0) pg MCHC 33.1 (31.0-36.0) g/dl RDW 15.4 (11.0-16.0) % Plt Count 274 (160-400) X10*3/uL MPV 11.7 (9.4-12.4) fL Immature Gran % (Auto) 0.4 (0.0-0.4) % Neut % (Auto) 81.3 H (45-73) % Lymph % (Auto) 11.2 L (20-40) % [place] % (Auto) 6.3 (2-11) % Eos % (Auto) 0.3 (0-4) % Baso % (Auto) 0.5 (0-2) % Lymph # (Auto) 1.3 (1.2-4.9) X10*3/uL [place] # (Auto) 0.7 (0.1-1.2) X10*3/uL Eos # (Auto) 0.0 (0.0-0.4) X10*3/uL Baso # (Auto) 0.1 (0.0-0.2) X10*3/uL Abs Immat Gran (auto) 0.05 H (0.00-0.03) X10*3/uL Absolute Neuts (auto) 9.5 H (2.0-8.3) x10*3/uL Absolute Nucleated RBC 0.000 (0.0-0.012) X10*3/uL Nucleated RBC % (auto) 0.0 (0.0-0.2) /100WBC PT 41.5 H (11.2-13.5) SEC INR 3.5 H D (0.9-1.1) Sodium 139 (135-145) mmol/L Potassium 4.9 (3.3-5.1) mmol/L Chloride 109 H (96-108) mmol/L Carbon Dioxide 22 (22-29) mmol/L Anion Gap 13 (12-20) BUN 23 H (9-16) mg/dL Creatinine 1.23 (0.5-1.4) mg/dL Estim Creat Clear Calc 64.0 Estimated GFR 57 Random Glucose 211 H (60-115) mg/dL Calcium 9.1 (8.4-10.2) mg/dL Magnesium 2.0 (1.6-2.6) mg/dL Total Bilirubin 1.7 H (0.0-1.0) mg/dL AST 30 (5-37) U/L ALT 29 (0-40) U/L Alkaline Phosphatase 100 (39-117) U/L Total Protein 6.7 (6.5-8.0) g/dL Albumin 4.3 (3.5-5.0) g/dL Blood Type O Negative Antibody Screen NEGATIVE Independent Interpretation I performed an independent interpretation of an: Plain X-Ray and CT Scan Interpretation: My interpretation is in agreement with the radiologist's impression of these imaging studies as written below. Report Number: [id number]: Total DLP = 0.00 mGy-cm Reason for Exam: fall, head strike EXAMINATION: CT CERVICAL SPINE WITHOUT IV CONTRAST HISTORY: fall, head strike. TECHNIQUE: Helical CT of the cervical spine was performed per standard departmental protocol. Coronal and sagittal reformatted images were also evaluated. One or more of the following techniques was used for dose reduction: Automated exposure control, adjustment of the mA and/or kV according to patient size, use of iterative reconstruction technique. DLP: 517 mGy-cm COMPARISON: There are no prior studies available for comparison. FINDINGS: CERVICAL SPINE: There is slight head tilt to the left, curvature of the mid cervical spine to the right, and curvature of the lower cervical and upper thoracic spine to the left. There is mild 2 mm anterior subluxation of C4 with respect to C3 and C5. Bone alignment is otherwise normal. No fracture or dislocation. Disc space narrowing at C3-4. Mild degenerative spondylosis at C3-4 C5-6 and C6-7. Bilateral multilevel facet arthritis greatest at C3-4 and C4-5 on the left. Mild degenerative changes at the C1 dens articulation. BRAIN: The visualized portion of the brain is unremarkable. SINUSES: The visualized paranasal sinuses, mastoid air cells and middle ear cavities are unremarkable. LUNG APICES: The visualized lung apices are clear. SOFT TISSUES: Prevertebral soft tissues are normal. Atherosclerotic disease including significant bilateral carotid calcification. Bilateral tonsillar calcification. CT/CT cervical spine wo IV con IMPRESSION: No evidence of fracture or malalignment of the cervical spine. Degenerative changes. Electronically signed by: Sadaf Montenegro MD 02/28/2025 02:20 PM [facility] Dictated By: Sadaf Montenegro MD Signed By: Electronically signed by Sadaf Montenegro MD 02/28/25 1420 EXAMINATION: CT HEAD WITHOUT IV CONTRAST HISTORY: fall, head strike, on AC. TECHNIQUE: Unenhanced helical CT of the head was performed per standard departmental protocol. Coronal and sagittal reformats of the head were also evaluated. One or more of the following techniques was used for dose reduction: Automated exposure control, adjustment of the mA and/or kV according to patient size, use of iterative reconstruction technique. DLP: 717 mGy-cm COMPARISON: There are no prior studies available for comparison. FINDINGS: BRAIN: There is no evidence of an extra-axial collection. There is no evidence of intra or extra-axial hemorrhage. The ventricles and extra-axial CSF spaces are prominent suggestive of mild generalized atrophy. There is nonspecific periventricular white matter disease. No mass, mass effect or infarct is seen. Atherosclerotic disease. SINUSES: The visualized paranasal sinuses are clear. The mastoid air cells and middle ear cavities are well pneumatized. ORBITS: The visualized orbits are unremarkable. BONES/SOFT TISSUES: The extracranial soft tissues are unremarkable. The calvarium is intact. No suspicious lytic or sclerotic lesions. CT/CT head/brain wo IV con IMPRESSION: No acute intracranial abnormality. Generalized atrophy and nonspecific periventricular white matter disease. Electronically signed by: Sadaf Montenegro MD 02/28/2025 02:21 PM [facility] Dictated By: Sadaf Montenegro MD Signed By: Electronically signed by Sadaf Montenegro MD 02/28/25 1421 EXAMINATION: CT ABDOMEN PELVIS WITH IV CONTRAST, CT CHEST WITH IV CONTRAST INDICATION: fall, on AC, extensive bruising COMPARISON: There are no prior studies available for comparison.. TECHNIQUE: CT scan of the chest, abdomen and pelvis was performed following administration of 85 mL Omnipaque 350 using standard departmental protocol. Coronal and sagittal reformatted images were generated and reviewed. Oral contrast material was not administered at the request of the referring physician. This CT exam was performed with one or more of the following dose reduction techniques: automated exposure control, adjustment of the mA and/or kV according to patient size, use of iterative reconstruction technique. DLP: 1237 mGy-cm CHEST: THYROID: The thyroid is unremarkable. LUNGS: There are emphysematous changes bilaterally. There is scarring at the left lung base. The lungs are otherwise clear. MEDIASTINUM: There is no mediastinal lymphadenopathy. MARISSA: There is no hilar lymphadenopathy. CARDIOVASCULATURE: The heart is enlarged. 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 There is no pericardial effusion. The thoracic aorta is normal in caliber. DEGREE OF CORONARY CALCIFICATION: severe PLEURA: There is no pleural effusion. No pneumothorax. MAIN AIRWAYS: The mainstem bronchi and proximal branches are patent. AXILLA: There is no axillary lymphadenopathy. SOFT TISSUES: There is degenerative disc disease of the spine. No fracture is seen. BONES: The bones are intact. ABDOMEN: LIVER: The liver is normal in size and contour. No liver mass is identified. The hepatic and portal veins are patent. GALLBLADDER / BILE DUCTS: The gallbladder is unremarkable. There is no intra or extrahepatic biliary ductal dilatation. SPLEEN: The spleen is normal in size. No focal splenic lesion is identified. PANCREAS: The pancreas is unremarkable in appearance. ADRENAL GLANDS: Within normal limits. KIDNEYS/RETROPERITONEUM: No renal calculi are identified. There is no hydronephrosis. No renal masses are identified. LYMPH NODES: No abdominal or pelvic lymphadenopathy. VASCULATURE: The abdominal aorta demonstrates atherosclerotic calcification, but is normal in caliber. MESENTERY/PERITONEUM: No free fluid. No masses. There is no free intraperitoneal gas. STOMACH: There is a small hiatal hernia. The remainder of the stomach is collapsed. SMALL BOWEL: The small bowel is normal in caliber. COLON: There is extensive diverticulosis of the colon, without evidence of diverticulitis. APPENDIX: Normal. URINARY BLADDER/PELVIC ORGANS: The urinary bladder is unremarkable. The prostate is mildly enlarged. BONES / SOFT TISSUES: There is a left supragluteal hematoma measuring 11.1 x 5.1 x 8.3 cm. Mild infiltration of the fat of the left anterior abdominal wall may represent a soft tissue contusion. There is degenerative disc disease of the spine. The bones are intact. CT/CT abdomen pelvis w IV con IMPRESSION: 1. 11.1 x 5.1 x 8.3 cm left supragluteal hematoma. 2. Mild infiltration of the fat of the left anterior abdominal wall which may represent a soft tissue contusion. 3. Cardiomegaly. 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 Electronically signed by: Cem Andersen MD 02/28/2025 02:11 PM EST RP Dictated By: Cem Andersen MD Signed By: Electronically signed by Cem Andersen MD 02/28/25 1411 Reason for Exam: pain, injury EXAMINATION: XR FEMUR, LEFT CLINICAL INFORMATION: pain, injury COMPARISON: None available. TECHNIQUE: AP and lateral views of the left femur were obtained. FINDINGS: No fracture, dislocation, or suspicious bone lesion. Normal alignment. No evidence of knee joint effusion. Mild osteoarthrosis noted in the left hip joint, and left knee joint. Soft tissues demonstrate diffuse vascular calcifications. XR/XR femur LT 2V IMPRESSION: No acute findings of the left femur. Electronically signed by: Yaya Rosenbaum MD 02/28/2025 01:51 PM EST RP Dictated By: Yaya Rosenbaum MD Signed By: Electronically signed by Yaya Rosenbaum MD 02/28/25 1351 Critical Care Time Critical Care Time Critical Care Time: Yes Total Critical Care Time: 38 Attestation: I spent 38 minutes of Critical Care Time with this patient. This does not include time spent on separately reported billable procedures. Discharge Plan Discharge Clinical Impression: Hematoma, Elevated INR Patient Disposition: Home, Self-Care Instructions: Elevated INR (ED), Hematoma (ED) Additional Instructions: Your CT showed evidence of a large bruise. This does not need manual draining at this time. HOLD your Coumadin / Warfarin tomorrow (03/01/2025) and follow up with the coagulation clinic. IF you are prescribed home medications and/or you are taking over the counter medications at home - it is very important you continue to do so as prescribed / directed unless told otherwise by a healthcare provider. Follow up with your primary care provider. Do your best to stay well hydrated and rest. Return to the emergency department immediately if your symptoms worsen or if you develop any numbness, tingling, dizziness, shortness of breath, difficulty breathing, chest pain, blurry vision, loss of vision, nausea, vomiting, abdominal pain, fever, chills, back pain, or any other complaints. Please see the information below about our Patient Portal. If you are not yet enrolled in the [facility] Patient Portal, you will receive an enrollment email invitation following your visit to any [facility] care setting. You may also self-enroll in the Patient Portal by visiting our website: [email or web address] The following information is required to access the Patient Portal: - Your [facility] [place] Number - Your personal home email address (must match what is in your electronic medical record, Registration staff can assist with this) - Name - Date of Capabilities of the Patient Portal: - Message some providers - View upcoming appointments - Access your health summary, medical history, and visit history - View current conditions and allergies - View procedure and lab results - View your medications, including guidelines, side effects, and precautions - Complete pre-appointment questionnaires requested by your provider - Ready summary reports of your office visits and procedures To access the Patient Portal Mobile [employer], follow these directions: - Search [employer] in the [employer] Store or [employer] Store - Download the Stephan - Search for [facility] - Enter your login/password Prescriptions: No Action (DME) lancets [OneTouch Delica Lancets] 33 gauge misc See Rx Instructions .ROUTE .MEDSUPPLY Qty: 100 0RF Rx Instructions: Use to check blood sugars once a day metformin 500 mg tablet extended release 24 hr 500 mg PO QPM Qty: 90 7RF lisinopril 40 mg tablet 40 mg PO DAILY Qty: 90 3RF atorvastatin 80 mg tablet 80 mg PO DAILY Qty: 90 2RF (DME) blood-glucose meter [Contour Plus Blue Meter] Misc See Rx Instructions .Route Qty: 1 0RF Rx Instructions: As directed- once daily (DME) Contour Plus Test Strip Strip See Rx Instructions .Route Qty: 50 5RF Rx Instructions: As directed- once daily (DME) Diabetic shoes insert/insoles See Rx Instructions .Route .MEDSUPPLY Qty: 2 0RF Rx Instructions: As directed metoprolol succinate 25 mg tablet extended release 24 hr 25 mg PO DAILY 90 Days Qty: 90 1RF warfarin 2 mg tablet See Rx Instructions PO DAILY 30 Days Qty: 90 2RF Protocol: Dose Management Condition: Thursday (Week One) Dose/Route: 6 mg Instruction: 3 x 2 mg tablets Condition: Thursday Dose/Route: 4 mg Instruction: 2 x 2 mg tablets Condition: Thursday Dose/Route: 4 mg Instruction: 2 x 2 mg tablets Condition: Thursday Dose/Route: 0 mg Instruction: 0 tablets Condition: Dose/Route: 4 mg Instruction: 2 x 2 mg tablets Condition: Thursday Dose/Route: 4 mg Instruction: 2 x 2 mg tablets Condition: Thursday Dose/Route: 4 mg Instruction: 2 x 2 mg tablets Condition: Thursday (Week Two) Dose/Route: 6 mg Instruction: 3 x 2 mg tablets Condition: Thursday Dose/Route: 4 mg Instruction: 2 x 2 mg tablets Condition: Thursday Dose/Route: 4 mg Instruction: 2 x 2 mg tablets Condition: Thursday Dose/Route: 4 mg Instruction: 2 x 2 mg tablets Condition: Dose/Route: 4 mg Instruction: 2 x 2 mg tablets Condition: Thursday Dose/Route: 4 mg Instruction: 2 x 2 mg tablets Condition: Thursday Dose/Route: 4 mg Instruction: 2 x 2 mg tablets Protocol Text: Adjustment Start Date: Thursday02/28/25 INR Value: 3.9 INR Date: 02/28/25 Recheck Date: 03/07/25 Rx Instructions: 6MG X 1 DAY/ 4MG X 6 DAYS 2-3 TABS DAILY PER INR RESULT OF ANTICOAGULATION SERVICES alcohol swabs Pads, Medicated 0 pad topical DAILY Referrals: Rohith Marin PA-C [Primary Care Provider, Internal Medicine] Interventions: ED Discharge Assessment Last Done: 02/28/25 15:31 Print Language: Serbian
[2025-02-28 12:51] LABS: MANUAL DIFF FLAG NO
[2025-02-28 12:53] LABS: Hematocrit 31.1 % (42.0-52.0); Hemoglobin 10.3 g/dl (14.0-18.0); Imm Gran Abs Auto 0.05 X10*3/uL (0.00-0.03); Imm Gran Pct Auto 0.4 % (0.0-0.4); Lymphocytes Absolute Auto 1.3 X10*3/uL (1.2-4.9); Mean Corpuscular HGB Conc 33.1 g/dl (31.0-36.0); Mean Corpuscular Hemoglobin 28.6 pg (27.0-33.0); Mean Corpuscular Volume 86.4 fL (80.0-98.0); NRBC Abs Auto 0.000 X10*3/uL (0.0-0.012); NRBC Pct Auto 0.0 /100WBC (0.0-0.2); Platelet Count 274 X10*3/uL (160-400); Red Blood Count 3.60 X10*6/uL (4.60-5.80); White Blood Count 11.7 X10*3/uL (4.8-10.8)
[2025-02-28 13:05] LABS: Alanine Aminotransferase 29 U/L (0-40); Albumin Level 4.3 g/dL (3.5-5.0); Alkaline Phosphatase 100 U/L (39-117); Anion Gap 13 (12-20); Aspartate Amino Transferase 30 U/L (5-37); Blood Urea Nitrogen 23 mg/dL (9-16); Calcium 9.1 mg/dL (8.4-10.2); Carbon Dioxide 22 mmol/L (22-29); Chloride 109 mmol/L (96-108); Creatinine Clr Calc Pharmacy 64.0; Estimated Glomerular Filt Rate 57; Magnesium 2.0 mg/dL (1.6-2.6); Potassium 4.9 mmol/L (3.3-5.1); Sodium 139 mmol/L (135-145); Total Protein 6.7 g/dL (6.5-8.0)
--- NOTE | 2025-02-28 13:08 | PC.NURSE ---
Pt has deep bruising throuhgout salvador hips, abd, pelvis down into thighs. Right orb is bruised, right axilla/upper arm as well. Pt denies headache, N/V. Does have left hip pain. Axox3.
[2025-02-28 13:22] LABS: INTERNATIONAL NORM RATIO 3.5 (0.9-1.1); Prothrombin Time 41.5 SEC (11.2-13.5)
[2025-02-28] MEDS: iohexoL 350 MG/ML 100 ML INFUS..BTL IV (13:34)
[2025-02-28 15:31] VITALS: BP 109/68; PULSE 94; RESP 20; TEMP 36.4; O2SAT 97
== END 2025-02-28 15:32 | disposition home or self-care (01) ==
PROVIDERS: Physician Assistant Medical; Emergency Provider Emergency Medicine; PCP Physician Assistant
DX: S30.11XA Contusion of abdominal wall, initial encounter (principal); S70.02XA Contusion of left hip, initial encounter; S30.0XXA Contusion of lower back and pelvis, initial encounter; S09.90XA Unspecified injury of head, initial encounter; W19.XXXA Unspecified fall, initial encounter; Y93.9 Activity, unspecified; Y92.9 Unspecified place or not applicable; E11.9 Type 2 diabetes mellitus without complications; E78.5 Hyperlipidemia, unspecified; I10 Essential (primary) hypertension; I48.91 Unspecified atrial fibrillation; Z51.81 Encounter for therapeutic drug level monitoring; Z79.01 Long term (current) use of anticoagulants
CPT/HCPCS: 36415; 70450; 71260; 72125; 73552; 74177; 80053; 83735; 85025; 85610; 86850; 86900; 86901; 99211; 99283; 99285; Q9967

== ENCOUNTER → 2025-02-28 12:18 | Outpatient (BNV) | payer MEDICARE, SELFPAY | PROVIDERS: PCP Physician Assistant; Visit Provider Radiology Diagnostic Radiology | DX: S30.0XXA Contusion of lower back and pelvis, initial encounter (principal); I51.7 Cardiomegaly; M50.30 Other cervical disc degeneration, unspecified cervical region; S09.90XA Unspecified injury of head, initial encounter; R90.82 White matter disease, unspecified; Z04.3 Encounter for examination and observation following other accident; M79.652 Pain in left thigh | CPT/HCPCS: 70450; 71260; 72125; 73552; 74177 ==

== ENCOUNTER 2025-03-02 11:37 | Outpatient (AMB) | payer MEDICARE, SELFPAY ==
--- NOTE | 2025-03-02 11:09 | A.OFFPC_ITS ---
Vital Signs 3 03/02/25 11:40 Height 6 ft 1 in Weight 235 lb 2 oz BMI 31.0 BP 130/60 Blood Pressure Location Lt brachial Position Sitting Respiration 16 Pulse 78 Pulse Source Pulse Oximeter Temp 97.3 F Temp Source Temporal Artery Scan Pulse Oximetry (%) 96 Oxygen Delivery Method Room Air Intake Visit Reasons: fall with pain and bruising [facility] [place] Iridologist Required: No Accompanied by: Spouse Allergies No Known Allergies Allergy (Verified 03/02/25 11:58) Medication List - Last Reconciled 03/02/25 by GANESH Guzmán-Lyn alcohol swabs 0 pad topical DAILY atorvastatin 80 mg PO DAILY blood sugar diagnostic (Contour Plus Test Strip) As directed- once daily blood-glucose meter (Contour Plus Blue Meter) As directed- once daily [Diabetic shoes insert/insoles As directed] lancets (VISENZETouch Delica Lancets) Use to check blood sugars once a day lisinopril 40 mg PO DAILY metformin ER 500 mg PO QPM metoprolol succinate ER 25 mg PO DAILY 90 days warfarin See Protocol 6MG X 1 DAY/ 4MG X 6 DAYS 2-3 TABS DAILY PER INR RESULT OF ANTICOAGULATION SERVICES 30 days Tobacco use date assessed: 08/25/24 Fall risk assessment: 1 Fall in past year Last assessed Fall Risk: 03/02/25 Dental Screening Dental Screen Date: 08/25/24 HPI fall with pain and bruising [facility] [place] 2 HPI0 Details Patient is a 79-year-old male here today for ER follow-up visit. Patient has a past medical history significant for hypertension, type 2 diabetes and persistent AFib. Patient recently seen at the ER after mechanical fall on his left buttocks. Workup showed slight anemia though no fractures. Did have large hematoma over the left buttocks. Patient is currently concerned about his continued bruising. Compared ER photos to today's presentation and appears similar. [facility] Medical History Diabetes mellitus Hyperlipidemia Hypertension Surgical History History of ankle surgery Family History Mother No problems noted. Father No problems noted. Social History Housing: House Housing Other:: HAS A RAMP LIVES WITH SHE FUNCTIONABLE Alcohol intake: current Alcohol intake frequency: 0-2 drinks per day Patient Tobacco Use Status: Never used Tobacco e-Cigarette/Vaping Use: Never Used Second Hand Smoke Exposure: No service: No Current occupational status: employed and retired Current occupation: WORK [employer] Current occupational exposures/hazards: Yes Cognitive needs: No Hearing needs: No Vision needs: Yes Questionnaire Thrive Questionnaire Date Thrive assessed: 08/25/24 AUDIT C Alcohol Use Questionnaire (AUDIT-C) 1. How often do you have a drink containing alcohol?: Monthly or less 2. How many drinks containing alcohol do you have on a typical day when you are drinking?: 1 or 2 3. How often do you have six or more drinks on one occasion?: Never Total Score: 1 MUKESH-7 AMB Questionnaire MUKESH-7 Date MUKESH - 7 assessed: 08/25/24 Source: Developed by Drs. Cem Garg, Brionna Garcia, Parish Rowe and colleagues, with an educational rah from [employer]. Physical exam (Primary Care) Vital Signs: Last Vital Signs Temp 97.3 F 03/02/25 11:40 Pulse 78 03/02/25 11:40 Resp 16 03/02/25 11:40 BP 130/60 03/02/25 11:40 Pulse Ox 96 03/02/25 11:40 Oxygen Delivery Method Room Air 03/02/25 11:40 BMI result Body Mass Index 31.0 Tobacco/Smoking Status: Tobacco use Status Tobacco use date assessed 08/25/24 03/02/25 11:10 Patient Tobacco Use Status Never used Tobacco 03/02/25 11:10 e-Cigarette/Vaping Use Never Used 03/02/25 11:10 Thrive Assessment: Date of Thrive Assessment Date Thrive assessed 08/25/24 03/02/25 11:10 GI Abdomen image: 2 1. DARK ECCHYMOSIS NOTED OVER Back/Spine/Pelvis Back/spine/pelvis image: 2 1. LARGE HEMATOMA IN THE AREA OUTLINED, SURROUNDING ECCHYMOSIS Coding Level of Care Code Est Pt Level 4 (97721) Diagnoses Hematoma and contusion T14.8XXA Assessment & Plan Assessment & Plan (1) Hematoma and contusion: Code(s): T14.8XXA - Other injury of unspecified body region, initial encounter Category: Medical Plan: Given the patient's report of lightheadedness and the large, expanding hematoma, there is concern for developing anemia. An order will be placed for a stat CBC to check his hemoglobin and red blood cell count today to ensure his blood levels are not dangerously low. The patient was instructed to go to the lab today and was informed that he will be contacted with the results. If his hemoglobin is below 7, he is to return to the emergency room. The patient was educated that the ecchymosis will take a couple of weeks to resolve and will likely spread further down his leg due to gravity, eventually turning a yellow-green color. He will proceed with his scheduled appointment for an INR check tomorrow. A follow-up visit is scheduled for the end of the month. Orders: Orders 2 Comprehensive Met. Panel Today T14.8XXA - Other injury of unspecified body region, initial encounter Complete Blood Count no Diff Today T14.8XXA - Other injury of unspecified body region, initial encounter
[2025-03-02 11:40] VITALS: BP 130/60; PULSE 78; RESP 16; TEMP 36.3; O2SAT 96; BMI 31.0
== END 2025-03-02 12:13 | disposition home or self-care (01) ==
LOC: HO.HMCH 11:37
PROVIDERS: PCP Physician Assistant; Visit Provider Physician Assistant
DX: T14.8XXA Other injury of unspecified body region, initial encounter (principal)

== ENCOUNTER 2025-03-02 11:37 | Outpatient (REF) | payer MEDICARE, SELFPAY ==
[2025-03-02 13:50] LABS: Hematocrit 29.5 % (42.0-52.0); Hemoglobin 9.6 g/dl (14.0-18.0); Mean Corpuscular HGB Conc 32.5 g/dl (31.0-36.0); Mean Corpuscular Hemoglobin 28.7 pg (27.0-33.0); Mean Corpuscular Volume 88.1 fL (80.0-98.0); NRBC Abs Auto 0.000 X10*3/uL (0.0-0.012); NRBC Pct Auto 0.0 /100WBC (0.0-0.2); Platelet Count 305 X10*3/uL (160-400); Red Blood Count 3.35 X10*6/uL (4.60-5.80); White Blood Count 9.6 X10*3/uL (4.8-10.8)
[2025-03-02 14:34] LABS: Alanine Aminotransferase 60 U/L (0-40); Albumin Level 4.3 g/dL (3.5-5.0); Alkaline Phosphatase 109 U/L (39-117); Anion Gap 11 (12-20); Aspartate Amino Transferase 56 U/L (5-37); Blood Urea Nitrogen 19 mg/dL (9-16); Calcium 8.9 mg/dL (8.4-10.2); Carbon Dioxide 24 mmol/L (22-29); Chloride 106 mmol/L (96-108); Cholesterol 99 mg/dL (<200); Estimated Glomerular Filt Rate > 60; HDL Cholesterol 31 mg/dL (>40); Potassium 4.3 mmol/L (3.3-5.1); Sodium 137 mmol/L (135-145); Total Protein 6.7 g/dL (6.5-8.0); Triglycerides 124 mg/dL (<150)
== END 2025-03-02 11:38 | disposition home or self-care (01) ==
LOC: HO.LAB 11:37
PROVIDERS: PCP Physician Assistant; Visit Provider Physician Assistant
DX: T14.8XXA Other injury of unspecified body region, initial encounter (principal); E78.5 Hyperlipidemia, unspecified; Z12.5 Encounter for screening for malignant neoplasm of prostate; R42 Dizziness and giddiness
CPT/HCPCS: 36415; 80053; 80061; 84153; 85027; 99212

== ENCOUNTER 2025-03-03 09:32 | Outpatient (AMB) | payer MEDICARE, SELFPAY ==
[2025-03-03 09:39] LABS: Prothrombin Time Whole Bld POC 23.8 sec (11.1-13.5); ~PT, ~INR - Anti Coag Clinic 2.0 (0.9-1.1)
--- NOTE | 2025-03-03 09:47 | MHC.OFFVISCO ---
Intake Intake Visit Reasons: Anticoagulation Allergies No Known Allergies Allergy (Verified 03/03/25 09:32) Medication List - Last Reconciled 03/03/25 by Yamilka Hernandez RN alcohol swabs 0 pad topical DAILY atorvastatin 80 mg PO DAILY blood sugar diagnostic (Contour Plus Test Strip) As directed- once daily blood-glucose meter (Contour Plus Blue Meter) As directed- once daily [Diabetic shoes insert/insoles As directed] lancets ([employer] Delica Lancets) Use to check blood sugars once a day lisinopril 40 mg PO DAILY metformin ER 500 mg PO QPM metoprolol succinate ER 25 mg PO DAILY 90 days warfarin See Protocol 6MG X 1 DAY/ 4MG X 6 DAYS 2-3 TABS DAILY PER INR RESULT OF ANTICOAGULATION SERVICES 30 days Nursing Note INR: 2.0 in therapeutic range of 2-3 S/P fall on Thanksgiving with contusion left back and extensive bruising. Saw pcp yesterday. Md watching hgb/hct. Medications and supplements reviewed No changes in diet, medications, or supplements, Dose: pt restarted warfarin yesterday and took only 1/2dose. Will restart usual dose today. Will decrease next week's total dose by 2mg. See Dose Management sheet. F/U INR: 10 days Patient verbalizes understanding of instructions given Anti-Coag Initial Assessment Social Hx Patient Tobacco Use Status: Never used Tobacco alcohol intake: current Alcohol intake frequency: 0-2 drinks per day Cardiovascular Hx: HTN (Long history since age 20s) and Arrhythmias (AFIB NEWLY DIAGNOSED) Endocrine Hx: Diabetes (AGE 50'S ) Musculoskeletal Hx: Arthritis and Other (RIGHHT ANKLE FRACTURE 25 YEARS AGO 3 PINS IN IT ) Blood Disorder Hx: Hyperlipidemia Coding Level of Care Code Est Patient Level 1 Diagnoses Current use of anticoagulant therapy Z79.01 Results AMB INR Fingerstick AMB INR Fingerstick 2.0 Last Edit by Yamilka Hernandez RN on 03/03/25 09:42 interface delay Assessment & Plan Assessment & Plan (1) Current use of anticoagulant therapy: Code(s): Z79.01 - superintendent container terminal (current) use of anticoagulants Category: Medical
== END 2025-03-03 09:55 | disposition home or self-care (01) ==
LOC: HO.ACS 09:32
PROVIDERS: PCP Physician Assistant; Visit Provider Internal Medicine Medical Oncology
DX: Z79.01 Long term (current) use of anticoagulants (principal)

== ENCOUNTER 2025-03-03 09:32 | Outpatient (REF) | payer MEDICARE, SELFPAY | END 2025-03-03 09:33 | disposition home or self-care (01) | LOC: HO.LNP 09:32 | PROVIDERS: PCP Physician Assistant; Visit Provider Internal Medicine Medical Oncology | DX: I10 Essential (primary) hypertension (principal) | CPT/HCPCS: 82570; 85610; 99211 ==

== ENCOUNTER 2025-03-07 14:11 | Outpatient (REF) | payer MEDICARE, SELFPAY ==
[2025-03-07 14:25] LABS: MANUAL DIFF FLAG NO
[2025-03-07 14:40] LABS: Hematocrit 31.7 % (42.0-52.0); Hemoglobin 10.2 g/dl (14.0-18.0); Imm Gran Abs Auto 0.06 X10*3/uL (0.00-0.03); Imm Gran Pct Auto 0.5 % (0.0-0.4); Lymphocytes Absolute Auto 1.9 X10*3/uL (1.2-4.9); Mean Corpuscular HGB Conc 32.2 g/dl (31.0-36.0); Mean Corpuscular Hemoglobin 29.1 pg (27.0-33.0); Mean Corpuscular Volume 90.6 fL (80.0-98.0); NRBC Abs Auto 0.000 X10*3/uL (0.0-0.012); NRBC Pct Auto 0.0 /100WBC (0.0-0.2); Platelet Count 308 X10*3/uL (160-400); Red Blood Count 3.50 X10*6/uL (4.60-5.80); White Blood Count 11.7 X10*3/uL (4.8-10.8)
== END 2025-03-07 14:12 ==
LOC: HO.LAB 14:11
PROVIDERS: PCP Physician Assistant; Visit Provider Physician Assistant
DX: T14.8XXA Other injury of unspecified body region, initial encounter (principal)
CPT/HCPCS: 36415; 85025

== ENCOUNTER 2025-03-13 14:27 | Outpatient (AMB) | payer MEDICARE, SELFPAY ==
--- OUTSIDE RECORDS SUMMARY | 2023-11-06 05:00 | XMS_ITS ---
Author Organization [facility] Address [address] [place] [address] Care Team Providers Care Cloth Printing Utility Worker Name Role Phone Rohith Marin Primary Care Provider Unavailab Katelin Cramer Unavailable [phone] Benedict Lindsey Unavailable [phone] Encounters Encounter Location Date Provider Diagnosis [address] [address] 11/06/2023 Benedict Lindsey Plan Of Treatment Next Appt Details Provider Name:Katelin nguyen, 08/11/2025 09:15:00 AM, [address] [place] [address], [address], Progress Notes * Yemi DÍAZDOB: [birth year] (79 yo M)Acc No.[id number]:11/06/2023 Progress Note Patient: Yemi ELYVA Provider: Brayan Huffman DPM :1945 A ge:78 Y S ex:Male Date:11/06/2023 Address:[address] [place] [address] Pcp:Rohith Marin Subjective: * Chief Complaints: * [...] 0 11/06/2023 Generated for René bradley/Sanya/Selma on: 05/14/2024 08:53 PM EST
--- OUTSIDE RECORDS SUMMARY | 2024-05-13 04:15 | XMS_ITS ---
Author Organization [facility] Address [address] [place] [address] Care Team Providers Care Patch Press Operator Name Role Phone Rohith Marin Primary Care Provider Unavailab Katelin Cramer Unavailable [phone] Polanco Encounters Encounter Location Date Provider Diagnosis [facility] [address] [place] [address] 05/13/2024 Katelin Shi Plan Of Treatment Next Appt Details Provider Name:Katelin nguyen, 08/11/2025 09:15:00 AM, [address], [address], Progress Notes * Yemi DÍAZDOB: [birth year] (79 yo M)Acc No.[id number]:05/13/2024 Progress Note Patient: Yemi LEYVA Provider: Lyn Shi DPM :1945 A ge:78 Y S ex:Male Date:05/13/2024 Address:[address] [place], [place] [phone] Pcp:Rohith Marin Subjective: * Chief Complaints: * [...] 0 05/13/2024 Generated for René bradley/Sanya/Selma on: 1 05/14/2024 08:53 PM EST
--- OUTSIDE RECORDS SUMMARY | 2024-05-20 05:00 | XMS_ITS ---
Author Organization [facility] Address [address] [place] [address] Care Team Providers Care Junior Network Engineer Name Role Phone Rohith Marin Primary Care Provider UnavailKatelin Leonard [phone] Encounters Encounter Location Date Provider Diagnosis [address] [address] 05/20/2024 Katelin Shi Plan Of Treatment Next Appt Details Provider Name:Katelin nguyen, 08/11/2025 09:15:00 AM, [facility] [address], [address], Progress Notes * Yemi DÍAZDOB: [birth year] (79 yo M)Acc No.[id number]:05/20/2024 Progress Note Patient: Yemi LEYVA Provider: Lyn Shi DPM :1945 A ge:78 Y S ex:Male Date:05/20/2024 Address:[address] [place] [address] Pcp:Rohith Marin Subjective: * Chief Complaints: * [...] 05/20/2024 Generated for René bradley/Sanya/Selma on: 1 05/14/2024 08:53 PM EST
--- OUTSIDE RECORDS SUMMARY | 2024-08-09 10:30 | XMS_ITS ---
Author Organization [facility] Address [address] [place] [address] Care Team Providers Care Data Integrity Analyst Name Role Phone Rohith Marin Primary Care Provider Unavailab Katelin Cramer [phone] Encounters Encounter Location Date Provider Diagnosis [address] [address] 08/09/2024 Katelin Shi Plan Of Treatment Next Appt Details Provider Name:Katelin nguyen, 08/11/2025 09:15:00 AM, [address], [address], Progress Notes * Yemi DÍAZDOB: [birth year] (79 yo M)Acc No.[id number]:08/09/2024 Progress Note Patient: Yemi LEYVA Provider: Lyn Shi DPM :1945 A ge:79 Y S ex:Male Date:08/09/2024 Address:[address] [place] [phone] Pcp:Rohith Marin Subjective: * Chief Complaints: * * Medical History: Objective: * Vitals: Assessment: Plan: * Treatment: * Images: * The named appointment provid er may or may not be the originator of this progress note, and it is not deemed complete until electronically signed by the appointment provider. Sign off status: Pending * Provider: Lyn Shi DPM Date: 0 08/09/2024 Generated for René bradley/Sanya/Selma on: 1 05/14/2024 08:53 PM EST
--- OUTSIDE RECORDS SUMMARY | 2025-02-03 03:30 | XMS_ITS ---
Author Organization [facility] Address [address] [place] [address] Care Team Providers Care Campground Attendant Name Role Phone Rohith Marin Primary Care Provider Unavailab Katelin Cramer [phone] Encounters Encounter Location Date Provider Diagnosis [address] [address] 02/03/2025 Katelin Shi Plan Of Treatment Next Appt Details Provider Name:Katelin nguyen, 08/11/2025 09:15:00 AM, [address], [address], Progress Notes * Yemi DÍAZDOB: [birth year] (79 yo M)Acc No.[id number]:02/03/2025 Progress Note Patient: Yemi LEYVA Provider: Lyn Shi DPM :1945 A ge:79 Y S ex:Male Date:02/03/2025 Address:[address] [place] [address] Pcp:Rohith Marin Subjective: * Chief Complaints: * * Medical History: Objective: * Vitals: Assessment: Plan: * Treatment: * Images: * The named appointment provid er may or may not be the originator of this progress note, and it is not deemed complete until electronically signed by the appointment provider. Sign off status: Pending * Provider: Lyn Shi DPM Date: 1 04/05/2024 Generated for René bradley/Sanya/Selma on: 05/14/2024 08:53 PM EST
--- OUTSIDE RECORDS SUMMARY | 2025-03-10 04:00 | XMS_ITS ---
[facility] Address [address] [place] [address] Care Team Providers Care Student Union Consultant Name Role Phone Rohith Marin Primary Care Provider UnavailKatelin Leonard Unavailable [phone] Allergies Allergen (clinical drug ingredient) Drug/Non Drug Allergy documented on EMR Reaction Allergy Type Onset Date Status Penicillin Rash Drug Allergy Active REASON FOR VISIT At Risk Footcare Medications Medication SIG (Take, Route, Frequency, Duration) Notes Start Date End Date Status Walking Boot/Pneumatic As directed Wear Daily; Duration: Until further notice 01/11/2021 Not-Taking Extra Depth Diabetic Shoes with 3 Pair Custom heat-molded multi-density innersoles for 1 year Dx: 06/12/2020 N ot-Taking Doxycycline Monohydrate 100 MG 1 capsule Orally Once a day; Duration: 10 days 01/11/2021 Not-Takin g Extra Depth Orthopedic Shoes (1 Pair) with Customized Heat Molded Multidensity Innersoles (3 Pair) as directed Dx: IDDM/Polyneuropathy (E10.42), Hammertoe Foot Deformity (M20.41,M20.42), Preulcerative Skin Lesion(s) (L85.1) 11/04/2024 Active Work Note . . . disabled from wo rk until further notice 01/11/2021 Not-Taking metFORMIN HCl Active Jantoven 2 MG Oral; Duration: 32 Days Active Lisinopril 30 MG 1 tablet Orally Once a day; Duration: 30 day(s) Active Atorvastatin Calcium 80 MG 1 tablet Orally Once a day; Duration: 30 day(s) Active Aspir-81 Not-Taking Extra Depth Diabetic Shoes with 3 Pair Custom heat-molded multi-density innersoles for 1 year Dx: A ctive Social History Tobacco Use: Social History Observation [...] monthly (1 point) Points 4 Interpretation Positive Vital Signs Height 6ft 1in in 03/10/2025 Weight 240 lbs 03/10/2025 BMI 31.66 kg/m2 03/10/2025 Procedures Procedure Date Ordered Date Performed Result Body Sit e 13266-PKNVOFA NAIL, 6 OR MORE 03/10/2025 N/A 08030-SNVB SKIN LESIONS, OVER 4 03/10/2025 N/A Encounters Encounter Location Date Provider Diagnosis [facility] [address] [address] 03/10/2025 Katelin Shi Type 2 diabetes mellitus with diabetic polyneuropathy E11.42 and Tinea unguium B35.1 Assessments Encounter Date Diagnosis (ICD Code) Assessment Notes Treatment Notes Treatment Clinical Notes Section Notes 03/10/2025 Type 2 diabetes mellitus with diabetic polyneuropathy (ICD-10 - E11.42) 03/10/2025 Tinea unguium (ICD-10 - B35.1) Plan Of Treatment Pending Test Test Name Order Date 93563-IDDEPSB NAIL, 6 OR MORE 03/10/2025 53403-IOUF SKIN LESIONS, OVER 4 03/10/20 25 Next Appt Details Follow Up: 3 Months, Reason: Provider Name:Katelin nguyen, 08/11/2025 09:15:00 AM, [address] [place] [address], [place], [address], Procedure Notes * Category Sub-Category Detail Notes Debride Nail 6-10 Nail debridement Due to the cl inical pathology outlined in the exam findings, performance of this nail treatment is medically necessary as its management by an unskilled/untrained nonprofessional would put this patients foot and overall health at risk. Therefore, debridement to affected nail(s), as described in exam ( ___ ), was performed exclusively by the physician of record to reduce/remove overall nail length, girth, thickness, subungual debris, and necrotic tissue, by manual and/or electrical means through the use of a nail nipper and/or dremel-type jig grinder set up operator, to a more viable healthy nail plate or bed tissue 6-10 nails in total. Silver nitrate was used for any petechial bleeding as necessary. Definitive antifungal treatment options, both pharmaceutical and surgical, have been reviewed and discussed with the patient. The patient solely prefers the use of intermittent/as needed professional debridement services for their nail condition and understands the need for additional periodic treatments to maintain effectiveness in symptomatic relief - 68431 Keratoma Treatment Parring or Cutting o f Benign Hyperkeratotic Lesion(s) (-57) More than 4 Lesions - Due to the at risk nature of the patients medical condition as documented in the exam findings, performance of this keratoderma treatment is medically necessary as its management by an unskilled/untrained nonprofessional would put this patients foot and overall health at risk. Therefore, the benign hyperkeratotic lesions, (6 ) in total, locations as stated and described in the exam ( Medial plantar, IPJ, TA, T5, SUB MTH (s), 1, plantar heel(s), B/L . ), were pared, and/or cut utilizing a sterile 15 blade, tissue nippers, and/or power dremel instrumentation by the physician of record - [id number] Progress Notes * Yemi DÍAZDOB: [birth year] (79 yo M)Acc No.[id number]:03/10/2025 Progress Note Patient: Yemi LEYVA Provider: Lyn Shi DPM :1945 A ge:79 Y S ex:Male Date:03/10/2025 Address:[address] [place] [id number] Pcp:Rohith Marin Subjective: * Chief Complaints: * A t Risk Footcare * HPI: A t Risk footcare: Pt States Last PCP Visit: D ate: 1 05/04/2024 * ROS: G eneral/Constitutional: Nausea d enies, denies, denies. V omiting d enies, denies, denies. H marina Thirst d enies, denies, denies. L oss appetite d enies, denies, denies. C hills d enies, denies, denies. F atigue d enies, denies, denies. F ever d enies, denies, denies. N ight Sweats d enies, denies, denies. U nexplained weight loss d enies, denies, denies. U nexplained weight gain d enies, denies, denies.? H EENTM: Dentures d enies, denies, denies. D izziness d enies, denies, denies. G lasses/contacts a dmits, admits, admits. R etinopathy d enies, denies, denies. B lurred/double vision d enies, denies, denies. T MJ d enies, denies, denies. D ischarge/drainage d enies, denies, denies. I mplants d enies, denies, denies. S ore throat d enies, denies, denies. D ental implants d enies, denies, denies. H burke of hearing d enies, denies, denies. D ifficulty chewing/swallowing/speaking denies, denies, denies. N ose bleeds d enies, denies, denies. S ore mouth d enies, denies, denies. R espiratory: On Oxygen d enies, denies, denies. P neumonia/pleurisy?denies, denies, denies. B ronchitis d enies, denies, denies. E mphysema d enies, denies, denies. C oughing d enies, denies, denies. C ough blood d enies, denies, denies. S hortness of breath d enies, denies, denies. W heezing d enies, denies, denies. C ardiovascular: Pacemaker d enies, denies, denies. M MUTUEL CASHIER d enies, denies, denies. W PW d enies, denies, denies. C HF d enies, denies, denies. H eart attack d enies, denies, denies. S eptal defect d enies, denies, denies. R apid beat denies, denies, denies. C hest pain d enies, denies, denies. A trial Fib. d enies, denies, denies. M urmur/Palpitations d enies, denies, denies. G astrointestinal: Hemorrhoids d enies, denies, denies. S tomach/Abdominal pain d enies, denies, denies. D ark blood stool d enies, denies, denies. I rritable bowel d enies, denies, denies. C onstipation d enies, denies, denies. D iarrhea?denies, denies, denies. H ematology: Swelling a dmits, admits, admits. C lots d enies, denies, denies. V aricose Veins d enies, denies, denies. B ruising d enies, denies, denies. B leeding problem d enies, denies, denies. G enitourinary: Blood urine d enies, denies, denies. F requent/Painfu/urination/bladder control d enies, denies, denies. K idney stones d enies, denies, denies. I nfection (UTI) d enies, denies, denies. N ephropathy d enies, denies, denies. sex trans dis (STD) d enies, denies, denies. P rostate d enies, denies, denies. ? M usculoskeletal: Hammertoes a dmits, admits, admits. B unions d enies, denies, denies. B ack Pain d enies, denies, denies. M uscle Cramps/ Resting d enies, denies, denies. M uscle cramps / walking d enies, denies, denies. G eneralized aches and pains d enies, denies, denies. W eakness d enies, denies, denies. I nteg.: [place] d enies, denies, denies. S cars d enies, denies, denies. C orns/calluses d enies, denies, denies. I ngrown nails d enies, denies, denies. P ainful nails d enies, denies, denies. O pen Sores d enies, denies, denies. R ashes d enies, denies, denies. N eurologic: Difficulty sleeping d enies, denies, denies. B rain disorder d enies, denies, denies. N umbness d enies, denies, denies. B alance trouble?denies, denies, denies. C onfusion d enies, denies, denies. F ainting/blackouts d enies, denies, denies. T ingling d enies, denies, denies. T remors d enies, denies, denies. * Medical History: * Surgical History: a nkle surgery 04/30/2009Carpal Tunnel 08/28/22 * Hospitalization/Major Diagno stic Procedure: N o Hospitalization History. * Family History: M other: . F ather: , diagnosed with Diabetic - NIDDM. S pouse: alive.? * Social History: T obacco Use: T obacco use other than smoking A re you an other tobacco user? N o Tobacco Control (Standard) T obacco use: N onsmoker A dditional Findings: Tobacco non-user C urrent nonsmoker D rugs/Alcohol: D rugs H ave you used drugs other than those for medical reasons in the past 12 months? N o M iscellaneous: C hildren: yes. Exercise: yes, walking. Marital status: . 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 D rug/Alcohol: A ALIYAH-C (Standard) D id you have a drink containing alcohol in the past year? Y es H ow often did you have a drink containing alcohol in the past year? 2 to 3 times a week (3 points) H ow many drinks did you have on a typical day when you were drinking in the past year? 1 or 2 drinks (0 point) H ow often did you have six or more drinks on one occasion in the past year? L ess than monthly (1 point) P oints 4 I nterpretation P ositive * Medications: T akingExtra Depth Diabetic Shoes with 3 Pair Custom heat-molded multi-density innersoles for 1 year Dx: metFORMIN HCl Atorvastatin Calcium 80 MG Tablet 1 tablet Orally Once a day Lisinopril 30 MG Tablet 1 tablet Orally Once a day Jantoven 2 MG Tablet Oral Extra Depth Orthopedic Shoes (1 Pair) with Customized Heat Molded Multidensity Innersoles (3 Pair) as directed Dx: IDDM/Polyneuropathy (E10.42), Hammertoe Foot Deformity (M20.41,M20.42), Preulcerative Skin Lesion(s) (L85.1) Taking Extra Depth Diabetic Shoes with 3 Pair Custom heat-molded multi-density innersoles for 1 year Dx: Taking metFORMIN HCl Taking Atorvastatin Calcium 80 MG Tablet 1 tablet Orally Once a day Taking Lisinopril 30 MG Tablet 1 tablet Orally Once a day Taking Jantoven 2 MG Tablet Oral Taking Extra Depth Orthopedic Shoes (1 Pair) with Customized Heat Molded Multidensity Innersoles (3 Pair) as directed Dx: IDDM/Polyneuropathy (E10.42), Hammertoe Foot Deformity (M20.41,M20.42), Preulcerative Skin Lesion(s) (L85.1) Not-Taking/PRNAspir-81 Doxycycline Monohydrate 100 MG Capsule 1 capsule Orally Once a day Extra Depth Diabetic Shoes with 3 Pair Custom heat- molded multi-density innersoles for 1 year Dx: Walking Boot/Pneumatic As directed Wear Daily Work Note . . . . disabled from work until further notice Medication List reviewed and reconciled with the patientNot-Taking/PRN Aspir-81 Not-Taking/PRN Doxycycline Monohydrate 100 MG Capsule 1 capsule Orally Once a day Not-Taking/PRN Extra Depth Diabetic Shoes with 3 Pair Custom heat-molded multi-density innersoles for 1 year Dx: Not-Taking/PRN Walking Boot/Pneumatic As directed Wear Daily Not-Taking/PRN Work Note . . . . disabled from work until further notice Medication List reviewed and reconciled with the patient * Allergies: P enicillin: Rashyes[Allergies Verified] Objective: * Vitals: H t: 6ft 1in, Wt: 240, BMI: 31.66, Shoe size: 13, BS: 120, Ht-cm: 185.42 cm, Wt- k.86 kg. * P ast Orders: L ab:HEMOGLOBIN A1C (GLYCOHEMOGLOBIN) (Order Date - 03/03/2025) (Collection Date & Time - 03/04/2025 09:20 AM) Value Reference Range HEMOGLOBIN A1C % (HH) 6.7 * Examination: O phthalmology Referral: DIABETES EYE EXAM P rocedure Performed: N o F indings of Diabetic Eye Exam: n o retinopathy N eurological: SENSORY: Neurological exam demonstrates, reduced light touch sensation, reduced sharp/dull pin prick discrimination , B/L, 5.07 monofilament test performed at plantar aspects of 5 varied sites per foot shows sensation, reduced , B/L. N ails: NAILS are: E longated, overgrown, dystrophic, lytic, greater than 3mm thick, discolored and friable with crumbly malodorous subungual debris, T1, T2, T3, T4,? T6, T7, T8, T9. D ermatologic: SKIN FINDINGS: S kin exam reveals Keratotic lesion(s) located at M edial plantar, IPJ, TA, T5, SUB MTH (s), 1, plantar heel(s), B/L . . ? V ascular: DP PULSES (B): 2 /4, B/L. PT PULSES (B): 2/4, B/L. CAPILLARY FILL TIME: 3 secs. per digit, B/L. TROPHIC CONDITION-TEXTURE/ELASTICITY/TURGOR/HAIR GROWTH (B):?normal, B/L. TEMPERTURE GRADIENT (C): w arm to cool, proximal to distal, B/L. PIGMENTATION: n ormal, B/L. EDEMA (C): n o edema. TELANGECTASIA: a bsent. VARICOSITIES: a bsent. O rthopedic: MUSCLE STRENGTH: 5 /5 all groups in a symmetrical fashion, B/L. G eneral Examination: GENERAL APPEARANCE: Elvis robbinss a pleasant, alert, well nourished, well-developed, well hydrated individual, who demonstrates proper attention to hygiene/body habitus, and is in no acute distress, Pt serves as own historian for office visit today. ORIENTED: p erson, place, and time. Assessment: * Assessment: 1. T ype 2 diabetes mellitus with diabetic polyneuropathy - E11.42 (Primary) 2 . T akhil unguium - B35.1 Plan: * Treatment: * Procedures: D ebride Nail 6-10: Nail debridement D ue to the clinical pathology outlined in the exam findings, performance of this nail treatment is medically necessary as its management by an unskilled/untrained nonprofessional would put this patients foot and overall health at risk. Therefore, debridement to affected nail(s), as described in exam ( ___ ), was performed exclusively by the physician of record to reduce/remove overall nail length, girth, thickness, subungual debris, and necrotic tissue, by manual and/or electrical means through the use of a nail nipper and/or dremel-type jig grinder set up operator, to a more viable healthy nail plate or bed tissue 6-10 nails in total. Silver nitrate was used for any petechial bleeding as necessary. Definitive antifungal treatment options, both pharmaceutical and surgical, have been reviewed and discussed with the patient. The patient solely prefers the use of intermittent/as needed professional debridement services for their nail condition and understands the need for additional periodic treatments to maintain effectiveness in symptomatic relief - 86572. K eratoma Treatment: Parring or Cutting of Benign Hyperkeratotic Lesion(s) ( -57) More than 4 Lesions - Due to the at risk nature of the patients medical condition as documented in the exam findings, performance of this keratoderma treatment is medically necessary as its management by an unskilled/untrained nonprofessional would put this patients foot and overall health at risk. Therefore, the benign hyperkeratotic lesions, (6 ) in total, locations as stated and described in the exam ( Medial plantar, IPJ, TA, T5, SUB MTH (s), 1, plantar heel(s), B/L . ), were pared, and/or cut utilizing a sterile 15 blade, tissue nippers, and/or power dremel instrumentation by the physician of record - [id number]. * Procedure Codes: 1 1721 DEBRIDE NAIL, 6 OR MORE, Modifiers: XS 16180 TRIM SKIN LESIONS, OVER 4, Modifiers: XS * Preventive Medicine: Screening/Special Tests: F all Risk Screening: N o falls in the past year F ALLS: Screening for Future Fall Risk Have you had any falls with injury in the past year? N o * Follow Up: 3 Months * Images: * Sign off status: Completed true * Provider: Lyn Shi DPM Date: 05/11/2024 Generated for René bradley/Sanya/Selma on: 05/14/2024 08:53 PM EST History and Physical Notes * HPI (History of Present Illness) Category Sub-Category Detail Notes Category Not es At Risk footcare Pt States Last PCP Visit: Date:: 03/03/20 25 Examination Category Sub-Category Detail Notes Category Not es Neurological SENSORY: Neurological exa m demonstrates, reduced light touch sensation, reduced sharp/dull pin prick discrimination , B/L, 5.07 monofilament test performed at plantar aspects of 5 varied sites per foot shows sensation, reduced , B/L Dermatologic SKIN FINDINGS: Skin exam reveal s Keratotic lesion(s) located at Medial plantar, IPJ, TA, T5, SUB MTH (s), 1, plantar heel(s), B/L . Orthopedic MUSCLE STRENGTH: 5/5 all groups in a symmetrical fashion, B/L General Examination GENERAL APPEARANCE: Reveals a pleasant, alert, well nourished, well-developed, well hydrated individual, who demonstrates proper attention to hygiene/body habitus, and is in no acute distress, Pt serves as own historian for office visit today ORIENTED: person, place, and t nay Ophthalmology Referral DIABETES EYE EXAM Procedure Perform ed:: No Findings of Diabetic Eye Exam:: no retin opathy Vascular DP PULSES (B): 2/4, B/L PT PULSES (B): 2/4, B/L CAPILLARY FILL TIME: 3 secs. per digit, B/L TEMPERTURE GRADIENT (C): warm to cool, p roximal to distal, B/L TROPHIC CONDITION-TEXTURE/ELASTICITY/TURGOR/HAIR GROWTH (B): normal, B/L EDEMA (C): no edema TELANGECTASIA: absent VARICOSITIES: absent PIGMENTATION: normal, B/L Nails NAILS are: Elongated, overg rown, dystrophic, lytic, greater than 3mm thick, discolored and friable with crumbly malodorous subungual debris, T1, T2, T3, T4, T6, T7, T8, T9
[2025-03-13 14:47] LABS: Prothrombin Time Whole Bld POC 20.8 sec (11.1-13.5); ~PT, ~INR - Anti Coag Clinic 1.7 (0.9-1.1)
--- NOTE | 2025-03-13 14:51 | MHC.OFFVISCO ---
Intake Intake Visit Reasons: Anticoagulation Allergies No Known Allergies Allergy (Verified 03/13/25 14:43) Medication List - Last Reconciled 03/13/25 by Yamilka Hernandez, RN alcohol swabs 0 pad topical DAILY atorvastatin 80 mg PO DAILY blood sugar diagnostic (Contour Plus Test Strip) As directed- once daily blood-glucose meter (Contour Plus Blue Meter) As directed- once daily [Diabetic shoes insert/insoles As directed] lancets ([employer] Delica Lancets) Use to check blood sugars once a day lisinopril 40 mg PO DAILY metformin ER 500 mg PO QPM metoprolol succinate ER 25 mg PO DAILY 90 days warfarin See Protocol 6MG X 1 DAY/ 4MG X 6 DAYS 2-3 TABS DAILY PER INR RESULT OF ANTICOAGULATION SERVICES 30 days Nursing Note INR: 1.7 out of therapeutic range of 2-3 Medications and supplements reviewed No changes in health, diet, medications, or supplements, Denies any signs and symptoms of bleeding or bruising or clotting. Bleeding, bruising, clotting discussed Nutritional guidance given to avoid greens today and to have a serving of foods that raise the INR Dose: 6mg today then 4mg X 6 days and 6mg X 1 day (Sun) F/U INR: 2 weeks Patient verbalizes understanding of instructions given Anti-Coag Initial Assessment Social Hx Patient Tobacco Use Status: Never used Tobacco alcohol intake: current Alcohol intake frequency: 0-2 drinks per day Cardiovascular Hx: HTN (Long history since age 20s) and Arrhythmias (AFIB NEWLY DIAGNOSED) Endocrine Hx: Diabetes (AGE 50'S ) Musculoskeletal Hx: Arthritis and Other (RIGHHT ANKLE FRACTURE 25 YEARS AGO 3 PINS IN IT ) Blood Disorder Hx: Hyperlipidemia Coding Level of Care Code Est Patient Level 1 Diagnoses Current use of anticoagulant therapy Z79.01 Assessment & Plan Assessment & Plan (1) Current use of anticoagulant therapy: Code(s): 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
== END 2025-03-13 14:56 | disposition home or self-care (01) ==
LOC: HO.ACS 14:27
PROVIDERS: PCP Physician Assistant; Visit Provider Internal Medicine Medical Oncology
DX: Z79.01 Long term (current) use of anticoagulants (principal)

== ENCOUNTER → 2025-03-13 | Outpatient (BNVA) | payer MEDICARE, SELFPAY | PROVIDERS: PCP Physician Assistant; Visit Provider Internal Medicine Medical Oncology | DX: I48.91 Unspecified atrial fibrillation (principal); Z51.81 Encounter for therapeutic drug level monitoring; Z79.01 Long term (current) use of anticoagulants | CPT/HCPCS: 85610; 99211 ==

== ENCOUNTER → 2025-03-17 08:01 | Outpatient (REF) | payer MEDICARE, SELFPAY ==
--- OUTSIDE RECORDS SUMMARY | 2023-11-06 05:00 | XMS_ITS ---
Author Organization [facility] Address [address] [place] [address] Care Team Providers Care Build Automation Engineer Name Role Phone Rohith Marin Primary Care Provider Unavailab Katelin Cramer Unavailable [phone] Benedict Lindsey Unavailable [phone] Encounters Encounter Location Date Provider Diagnosis [address] [address] 11/06/2023 Benedict Lindsey Plan Of Treatment Next Appt Details Provider Name:Katelin nguyen, 08/11/2025 09:15:00 AM, [address] [place] [address], [address], Progress Notes * Yemi DÍAZDOB: [birth year] (79 yo M)Acc No.[id number]:11/06/2023 Progress Note Patient: Yemi LEYVA Provider: Brayan Huffman DPM :1945 A ge:78 Y S ex:Male Date:11/06/2023 Address:[address] [place] [address] Pcp:Rohith Marin Subjective: * Chief Complaints: * [...] 0 11/06/2023 Generated for René bradley/Sanya/Selma on: 05/18/2024 08:05 AM EST
--- OUTSIDE RECORDS SUMMARY | 2024-05-13 04:15 | XMS_ITS ---
Author Organization [facility] Address [address] [place] [address] Care Team Providers Care Relocation Manager Name Role Phone Rohith Marin Primary Care Provider Unavailab Katelin Cramer Unavailable [phone] Polanco Encounters Encounter Location Date Provider Diagnosis [facility] [address] [place] [address] 05/13/2024 Katelin Shi Plan Of Treatment Next Appt Details Provider Name:Katelin nguyen, 08/11/2025 09:15:00 AM, [address], [address], Progress Notes * Yemi DÍAZDOB: [birth year] (79 yo M)Acc No.[id number]:05/13/2024 Progress Note Patient: Yemi LEYVA Provider: yLn Shi DPM :1945 A ge:78 Y S ex:Male Date:05/13/2024 Address:[address] [place], [place] [address] Pcp:Rohith Marin Subjective: * Chief Complaints: * [...] 05/13/2024 Generated for René bradley/Sanya/Selma on: 1 05/18/2024 08:05 AM EST
--- OUTSIDE RECORDS SUMMARY | 2024-05-20 05:00 | XMS_ITS ---
Author Organization [facility] Address [address] [place] [address] Care Team Providers Care Women'S Soccer Coach Name Role Phone Rohith Marin Primary Care Provider UnavailKatelin Leonard [phone] Encounters Encounter Location Date Provider Diagnosis [address] [address] 05/20/2024 Katelin Shi Plan Of Treatment Next Appt Details Provider Name:Katelin nguyen, 08/11/2025 09:15:00 AM, [facility] [address], [address], Progress Notes * Yemi DÍAZDOB: [birth year] (79 yo M)Acc No.[id number]:05/20/2024 Progress Note Patient: Yemi LEYVA Provider: Lyn Shi DPM :1945 A ge:78 Y S ex:Male Date:05/20/2024 Address:[address] [place] [address] Pcp:Rohith Marin Subjective: * Chief Complaints: * * Medical History: Objective: * Vitals: Assessment: Plan: * Treatment: * Images: * The named appointment provid er may or may not be the originator of this progress note, and it is not deemed complete until electronically signed by the appointment provider. Sign off status: Pending * Provider: Lyn Shi DPM Date: 0 05/20/2024 Generated for René bradley/Sanya/Selma on: 1 05/18/2024 08:06 AM EST
--- OUTSIDE RECORDS SUMMARY | 2024-08-09 10:30 | XMS_ITS ---
Author Organization [facility] Address [address] [place] [address] Care Team Providers Care Director Of Quality Improvement Name Role Phone Rohith Marin Primary Care Provider Unavailab Katelin Cramer [phone] Encounters Encounter Location Date Provider Diagnosis [address] [address] 08/09/2024 Katelin Shi Plan Of Treatment Next Appt Details Provider Name:Katelin nguyen, 08/11/2025 09:15:00 AM, [address], [address], Progress Notes * Yemi DÍAZDOB: [birth year] (79 yo M)Acc No.[id number]:08/09/2024 Progress Note Patient: Yemi LEYVA Provider: Lyn Shi DPM :1945 A ge:79 Y S ex:Male Date:08/09/2024 Address:[address] [place] [address] Pcp:Rohith Marin Subjective: * Chief Complaints: * [...] 08/09/2024 Generated for René bradley/Sanya/Selma on: 1 05/18/2024 08:06 AM EST
--- OUTSIDE RECORDS SUMMARY | 2025-02-03 03:30 | XMS_ITS ---
Author Organization [facility] Address [address] [place] [address] Care Team Providers Care Barrer And Tacker Name Role Phone Rohith Marin Primary Care Provider UnavailKatelin Leonard [phone] Encounters Encounter Location Date Provider Diagnosis [address] [address] 02/03/2025 Katelin Shi Plan Of Treatment Next Appt Details Provider Name:Katelin nguyen, 08/11/2025 09:15:00 AM, [address], [address], Progress Notes * Yemi DÍAZDOB: 8 (79 yo M)Acc No.[id number]:02/03/2025 Progress Note Patient: Yemi LEYVA Provider: Lyn Shi DPM :1945 A ge:79 Y S ex:Male Date:02/03/2025 Address:[address] [place] [address] Pcp:Rohith Marin Subjective: * Chief Complaints: * [...] Date: 04/05/2024 Generated for René bradley/Sanya/Selma on: 05/18/2024 08:06 AM EST
--- NOTE | 2025-03-17 08:06 | CA_ITS ---
Transthoracic Echocardiogram Patient (Last, First, Middle): Yemi Díaz, Gender: Male Date of : 1945 Age: 79 Procedure Date: 03/17/2025 Procedure Type: Transthoracic Echocardiogram Location: OP Height: 185.42 cm Weight: 106.6 kg BSA: 2.30 m2 Heart Rate: bpm BP: 130 / 60 mmHg Grounds Worker: SB Referring MD: Jamar Hinson MD Symptoms: I48.19 - Other persistent atrial fibrillation Study Quality: Adequate w contrast ECG Rhythm: Afib/flutter Conclusions: - Normal left ventricular cavity size. The left ventricular systolic function is low normal. The visually estimated ejection fraction is between 50-55%. - Mildly increased right ventricular cavity size. There is low normal right ventricular systolic function. - The left atrium is severely dilated. - There is mild aortic valve regurgitation. - There is mild dilatation of the ascending aorta measuring 4.00 cm. Findings Procedure Information Contrast agent, definity, is being given per protocol without apparent complications. The quality of the study was technically difficult. The study quality is limited by patients body habitus. Left Ventricle Normal left ventricular cavity size. The left ventricular systolic function is low normal. The visually estimated ejection fraction is between 50-55%. There is no evidence of regional wall motion abnormalities. Diastolic function is indeterminate on the basis of available data. Right Ventricle Mildly increased right ventricular cavity size. There is low normal right ventricular systolic function. Atria The left atrium is severely dilated. The right atrium is mildly dilated. Aortic Valve There is a normal trileaflet aortic valve. There is mild calcification of the aortic valve. There is no aortic valve stenosis. There is mild aortic valve regurgitation. Mitral Valve The mitral valve appears normal. There is no mitral valve regurgitation. There is no mitral valve stenosis. Pulmonic Valve The pulmonic valve is normal. There is no pulmonic valve regurgitation. Tricuspid Valve Normal tricuspid valve structure. There is no tricuspid valve regurgitation. Normal right atrial pressure. There is no evidence of pulmonary hypertension. Great Vessels There is mild dilatation of the ascending aorta measuring 4.00 cm. The visualized portions of the pulmonary artery and branches are normal. Venous The inferior vena cava is normal in size and collapses greater than 50% with inspiration. Pericardium/Pleural There is no evidence of pericardial effusion. Prior Study Comparison No prior study available for comparison. Measurements 2D Linear Measurements IVSd: 0.83 0.6-0.9/0.6-1.0 cm LVIDd: 4.50 3.9-5.3/4.2-5.9 cm LVIDd Index: 1.96 2.4-3.2/2.2-3.1 cm/m2 LVIDs: 3.48 2.0-3.6 cm LVPWd: 1.12 0.7-1.1 cm LA Diam: 4.70 2.7-3.8/3.0-4.0 cm LAIDs Index: 2.04 1.5-2.3 cm/m2 LV Mass: 184.43 67-162/88-224 g LV Mass Index: 80.19 43-95/49-115 g/m2 LVOT Diam: 2.40 3.0+(-)1.3 cm 2D Systolic Function EF 4C: 45.70 >55% EF 2C: 49.00 >55% EF BiP: 47.20 >55% Mitral Valve MV Pk E: 0.92 MV Decel Time: 161.00 E'Lateral: 7.44 E'Medial: 7.99 E/E' Med: 11.50 E/E' Lat: 12.30 Aortic Valve AoV Pk Rehan: 1.05 AoV Pk Grad: 4.00 LVOT LVOT Pk Rehan: 0.85 LVOT Mn Rehan: 0.61 LVOT VTI: 0.17 LVOT Pk Grad: 3.00 LVOT Mn Grad: 1.00 LVOT Diam: 2.40 LVOT Area: 4.52 Diastolic Function MV Pk E: 0.92 E'Medial: 7.99 E/E' Med: 11.50 E' Laterial: 7.44 E/E' Lat: 12.30 Right Ventricle TAPSE (mm): 22.00 TVS' Rehan: 11.90 Tricuspid Valve TR Pk Rehan: 2.37 TR Pk Grad: 22.00 RA Press: 3.00 RVSP: 25.00 Great Vessels Aorta Sinus of Valsalva: 3.80 2.0-3.5 cm Ao Asc: 4.00 2.1-3.4 cm Pulmonary Valve PV Pk Rehan: 0.83 Peak PV Grad: 3.00 Updated in Other Vendor System with Status of Final Marvin Senior MD electronically signed on 03/19/2025 9:43:47 PM with status of Final
--- OUTSIDE RECORDS SUMMARY | 2025-03-17 08:06 | XMS_ITS | Patient Health Record ---
Author Organization [facility] Address [address] [place] [address] Care Team Providers Care Psychology Professor Name Role Phone Rohith Marin Primary Care Provider Katelin Farnsworth Unavailable [phone] Allergies Allergen (clinical drug ingredient) Drug/Non Drug Allergy documented on EMR Reaction Allergy Type Onset Date Status Penicillin Rash Drug Allergy Active Results Component Value Reference Range Notes HEMOGLOBIN A1C (GLYCOHEMOGLO BIN) Reviewed date:03/10/2025 09:20:43 AM Interpretation: Performing Lab: Notes/Report: HEMOGLOBIN A1C % (HH) 6.7 Reason For Referral No Information Medications Medication SIG (Take, Route, Frequency, Duration) Notes Start Date End Date Status metFORMIN HCl Active Extra Depth Diabetic Shoes with 3 Pair Custom heat-molded multi-density innersoles for 1 year Dx: A ctive Jantoven 2 MG Oral; Duration: 32 Days Active Lisinopril 30 MG 1 tablet Orally Once a day; Duration: 30 day(s) Active Atorvastatin Calcium 80 MG 1 tablet Orally Once a day; Duration: 30 day(s) Active Aspir-81 Not-Taking Walking Boot/Pneumatic As directed Wear Daily; [...] wo rk until further notice 01/11/2021 Not-Taking Immunizations Vaccine Route Administration Date Status Comme [...] Problem Acquired hammer toe of right foot (3392047908425831 ) Other hammer toe(s) (acquired), right foot (M20.41) Active confirmed Problem Acquired hammer toe of left foot (5871431405719029 ) Other hammer toe(s) (acquired), left foot (M20.42) Active confirmed Problem Polyneuropathy due to diabetes mellitus type I (046388475) 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 confirmed Problem Acquired hallux valgus (81227442) Hallux valgus (acquired), right foot (M20.11) Active confirmed Problem Polyneuropathy due to type 2 diabetes mellitus (007314615) Type 2 diabetes mellitus with diabetic polyneuropathy (E11.42) Active confirmed Vital Signs Heart Rate 76 /min 11/04/2024 Blood pressure diastolic 92 mm Hg 11/04/2024 Height 6ft 1in in 03/10/2025 Blood pressure systolic 142 mm Hg 11/04/2024 Weight 240 lbs 03/10/2025 BMI 31.66 kg/m2 03/10/2025 Procedures Procedure Date Ordered Date Performed Result Body Sit e 82994-IQHHGGJ NAIL, 6 OR MORE 07/05/2024 N/A 41747-EGBR SKIN LESIONS, OVER 4 07/05/2024 N/A 82633-TIUUTOS NAIL, 6 OR MORE 11/04/2024 N/A 78792-DZDA SKIN LESIONS, OVER 4 11/04/2024 N/A 62602-EINCUUP NAIL, 6 OR MORE 03/10/2025 N/A 73066-KKNC SKIN LESIONS, OVER 4 03/10/2025 N/A Encounters Encounter Location Date Provider Diagnosis [address] [address] 07/05/2024 Katelin Shi Type 2 diabetes mellitus with diabetic polyneuropathy E11.42 and Tinea unguium B35.[address] [address] 11/04/2024 Katelin Shi Other hammer toe(s) (acquired), right foot M20.41 ; Other hammer toe(s) (acquired), left foot M20.42 ; Type 2 diabetes mellitus with diabetic polyneuropathy E11.42 and Tinea unguium B35.[address] [address] 03/10/2025 Katelin Shi Type 2 diabetes mellitus with diabetic polyneuropathy E11.42 and Tinea unguium B35.[address] [address] 11/25/2024 Katelin Shi [address] [address] 02/01/2025 Katelin Shi Assessments Encounter Date Diagnosis (ICD Code) Assessment Notes Treatment Notes Treatment Clinical Notes Section Notes 07/05/2024 Type 2 diabetes mellitus with diabetic polyneuropathy (ICD-10 - E11.42) 07/05/2024 Tinea unguium (ICD-10 - B35.1) 11/04/2024 Other hammer toe(s) (acquired), right foot (ICD-10 - M20.41) Patient Educated with: DIABETIC FOOT CARE INSTRUCTIONS. pdf (DIABETIC FOOT CARE INSTRUCTIONS. pdf) 03/10/2025 Type 2 diabetes mellitus with diabetic polyneuropathy (ICD-10 - E11.42) 03/10/2025 Tinea unguium (ICD-10 - B35.1) 11/04/2024 Other hammer toe(s) (acquired), left foot (ICD-10 - M20.42) 11/04/2024 Type 2 diabetes mellitus with diabetic polyneuropathy (ICD-10 - E11.42) 11/04/2024 Tinea unguium (ICD-10 - B35.1) Plan Of Treatment Pending Test Test Name Order Date X ray : Foot, right 3V 02/01/2021 41241-JXXZZTZ NAIL, 6 OR MORE 07/05/2024 76763-LMZIITA NAIL, 6 OR MORE 11/04/2024 71700-JXWVEKI NAIL, 6 OR MORE 03/10/2025 55556-QIZS SKIN LESIONS, OVER 4 03/10/20 25 08738-ZKFI SKIN LESIONS, OVER 4 11/05/19 25 78787-KXJK SKIN LESIONS, OVER 4 07/06/19 25 68263-SSIW SKIN LESIONS, OVER 4 07/06/19 22 27434-AEZT SKIN LESIONS, OVER 4 06/13/19 21 42064-ALLY SKIN LESIONS, OVER 4 09/12/19 21 11253-BSOB SKIN LESIONS, OVER 4 01/12/20 21 78148-EGNEBFMH OF HEMATOMA/FLUID 023 03987-ADMQUASG OF HEMATOMA/FLUID 021 Next Appt Details Provider Name:Katelin nguyen, 08/11/2025 09:15:00 AM, [address] [facility], [facility] [address], [place], [address], Insurance Providers Payer Name Payer Address Payer Phone Subscriber Number Group Number Insured Name Patient Relationship to Insured Coverage Start Date Coverage End Date [employer] Medicare [id number] [address] [address] [place] [address] [phone] [id number] Yemi Díaz Self - patient is the insured Medical (General) History Medical History History ICD Code Broken bones Chicken pox Diabetes mellitus Gout High blood pressure Joint implants/screws Measles Mumps Surgical History Surgery Date(Month/Year) ankle surgery 04/30/2009 Carpal Tunnel 08/28/22 Hospitalization History Reason Date(Month/Year)
== END ==
LOC: HO.CARD 08:01
PROVIDERS: PCP Physician Assistant; Visit Provider Internal Medicine
DX: I48.19 Other persistent atrial fibrillation (principal)
CPT/HCPCS: 93242; 93306; Q9957

== ENCOUNTER → 2025-03-17 08:06 | Outpatient (BNV) | payer MEDICARE, SELFPAY | PROVIDERS: PCP Physician Assistant; Visit Provider Internal Medicine Cardiovascular Disease | DX: I77.810 Thoracic aortic ectasia (principal); I35.1 Nonrheumatic aortic (valve) insufficiency; I51.7 Cardiomegaly | CPT/HCPCS: 93306 ==

== ENCOUNTER 2025-03-27 14:27 | Outpatient (AMB) | payer MEDICARE, SELFPAY ==
--- OUTSIDE RECORDS SUMMARY | 2023-11-06 05:00 | XMS_ITS ---
Author Organization [facility] Address [address] [place] [address] Care Team Providers Care Business Analyst Project Manager Name Role Phone Rohith Marin Primary Care Provider Unavailab Katelin Cramer Unavailable [phone] Benedict Lindsey Unavailable [phone] Encounters Encounter Location Date Provider Diagnosis [address] [address] 11/06/2023 Benedict Lindsey Plan Of Treatment Next Appt Details Provider Name:Katelin nguyen, 08/11/2025 09:15:00 AM, [address] [place] [address], [id number], Progress Notes * Yemi DÍAZDOB: [birth year] (79 yo M)Acc No.[id number]:11/06/2023 Progress Note Patient: Yemi LEYVA Provider: Brayan Huffman DPM :1945 A ge:78 Y S ex:Male Date:11/06/2023 Address:[address] [place] [id number] Pcp:Rohith Marin Subjective: * Chief Complaints: * * Medical History: Objective: * Vitals: Assessment: Plan: * Treatment: * Images: * The named appointment provid er may or may not be the originator of this progress note, and it is not deemed complete until electronically signed by the appointment provider. Sign off status: Pending * Provider: Brayan Huffman DPM Date: 0 11/06/2023 Generated for René bradley/Sanya/[place] on: 04:48 PM EST
--- OUTSIDE RECORDS SUMMARY | 2024-05-13 04:15 | XMS_ITS ---
Author Organization [facility] Address [address] [place] [address] Care Team Providers Care Cook Helper Name Role Phone Rohith Marin Primary Care Provider Unavailab Katelin Cramer Unavailable [phone] Polanco Encounters Encounter Location Date Provider Diagnosis [facility] [address] [place] [address] 05/13/2024 Katelin Shi Plan Of Treatment Next Appt Details Provider Name:Katelin nguyen, 08/11/2025 09:15:00 AM, [address], [address], Progress Notes * Yemi DÍAZDOB: [birth year] (79 yo M)Acc No.[id number]:05/13/2024 Progress Note Patient: Yemi LEYVA Provider: Lyn Shi DPM :1945 A ge:78 Y S ex:Male Date:05/13/2024 Address:[address] [place], [place] [phone] Pcp:Rohith Marin Subjective: * Chief Complaints: * [address] Polanco. * Medical History: Objective: * Vitals: Assessment: Plan: * Treatment: * Images: * The named appointment provid er may or may not be the originator of this progress note, and it is not deemed complete until electronically signed by the appointment provider. Sign off status: Pending * Provider: yLn Shi DPM Date: 0 05/13/2024 Generated for René bradley/Sanya/Selma on: 04:48 PM EST
--- OUTSIDE RECORDS SUMMARY | 2024-05-20 05:00 | XMS_ITS ---
Author Organization [facility] Address [address] [place] [address] Care Team Providers Care Central Stores Attendant Name Role Phone Rohith Marin Primary Care Provider UnavailKatelin Leonard [phone] Encounters Encounter Location Date Provider Diagnosis [address] [address] 05/20/2024 Katelin Shi Plan Of Treatment Next Appt Details Provider Name:Katelin nguyen, 08/11/2025 09:15:00 AM, [facility] [address], [address], Progress Notes * Yemi DÍAZDOB: [birth year] (79 yo M)Acc No.[id number]:05/20/2024 Progress Note Patient: Yemi LEYVA Provider: Lyn Shi DPM :1945 A ge:78 Y S ex:Male Date:05/20/2024 Address:[address] [place] [address] Pcp:Rohith Marin Subjective: * Chief Complaints: * [...] 05/20/2024 Generated for René bradley/Sanya/Selma on: 1 04:48 PM EST
--- OUTSIDE RECORDS SUMMARY | 2024-08-09 10:30 | XMS_ITS ---
Author Organization [facility] Address [address] [place] [address] Care Team Providers Care Repairer Evaporator Name Role Phone Rohith Marin Primary Care Provider Unavailab Katelin Cramer [phone] Encounters Encounter Location Date Provider Diagnosis [address] [address] 08/09/2024 Katelin Shi Plan Of Treatment Next Appt Details Provider Name:Katelin nguyen, 08/11/2025 09:15:00 AM, [address], [address], Progress Notes * Yemi DÍAZDOB: [birth year] (79 yo M)Acc No.[id number]:08/09/2024 Progress Note Patient: Yemi LEYVA Provider: Lyn Shi DPM :1945 A ge:79 Y S ex:Male Date:08/09/2024 Address:[address] [place] [address] Pcp:Rohith Marin Subjective: * Chief Complaints: * [...] 08/09/2024 Generated for René bradley/Sanya/Selma on: 1 04:49 PM EST
--- OUTSIDE RECORDS SUMMARY | 2025-02-03 03:30 | XMS_ITS ---
Author Organization [facility] Address [address] [place] [address] Care Team Providers Care Parlor Maid Name Role Phone Rohith Marin Primary Care Provider UnavailKatelin Leonard [phone] Encounters Encounter Location Date Provider Diagnosis [address] [address] 02/03/2025 Katelin Shi Plan Of Treatment Next Appt Details Provider Name:Katelin nguyen, 08/11/2025 09:15:00 AM, [address], [address], Progress Notes * Yemi DÍAZDOB: 8 (79 yo M)Acc No.[id number]:02/03/2025 Progress Note Patient: Yemi LEYVA Provider: Lyn Shi DPM :1945 A ge:79 Y S ex:Male Date:02/03/2025 Address:[address] [place] [address] Pcp:Rohith Marin Subjective: * Chief Complaints: * * Medical History: Objective: * Vitals: Assessment: Plan: * Treatment: * Images: * The named appointment provid er may or may not be the originator of this progress note, and it is not deemed complete until electronically signed by the appointment provider. Sign off status: Pending * Provider: Lyn Shi DPM Date: 04/05/2024 Generated for René bradley/Sanya/Selma on: 04:48 PM EST
[2025-03-27 14:39] LABS: Prothrombin Time Whole Bld POC 22.7 sec (11.1-13.5); ~PT, ~INR - Anti Coag Clinic 1.9 (0.9-1.1)
--- NOTE | 2025-03-27 14:46 | MHC.OFFVISCO ---
Intake Intake Visit Reasons: Anticoagulation Allergies No Known Allergies Allergy (Verified 03/27/25 14:33) Medication List - Last Reconciled 03/27/25 by Yamilka Hernandez RN alcohol swabs 0 pad topical DAILY atorvastatin 80 mg PO DAILY blood sugar diagnostic (Contour Plus Test Strip) As directed- once daily blood-glucose meter (Contour Plus Blue Meter) As directed- once daily [Diabetic shoes insert/insoles As directed] lancets (Matchpinuch Delica Lancets) Use to check blood sugars once a day lisinopril 40 mg PO DAILY metformin ER 500 mg PO QPM metoprolol succinate ER 25 mg PO DAILY 90 days warfarin See Protocol 6MG X 1 DAY/ 4MG X 6 DAYS 2-3 TABS DAILY PER INR RESULT OF ANTICOAGULATION SERVICES 30 days Nursing Note INR: 1.9 out of therapeutic range of 2-3 Medications and supplements reviewed Patient status: feels well, no changes Medications or supplements: no changes Diet: usual diet for pt Denies any signs and symptoms of bleeding or clotting or unusual bruising Bleeding, bruising, clotting discussed Nutritional guidance given: to avoid greens x 2 days Dose: increase weekly dose to 6mg X 2 days (instead of one day) and then 4mg X 5 days. F/U INR Date: 4 weeks. Preferred 2 weeks but pt not happy about having to come for INR checks q 2-3 weeks. He wanted 4 weeks. Pt has an appointment with his pcp on 03/29/25 and stated he is going to inquire about changing to eliquis. Patient verbalizing understanding of instructions with read back given. Anti-Coag Initial Assessment Social Hx Patient Tobacco Use Status: Never used Tobacco alcohol intake: current Alcohol intake frequency: 0-2 drinks per day Cardiovascular Hx: HTN (Long history since age 20s) and Arrhythmias (AFIB NEWLY DIAGNOSED) Endocrine Hx: Diabetes (AGE 50'S ) Musculoskeletal Hx: Arthritis and Other (RIGHHT ANKLE FRACTURE 25 YEARS AGO 3 PINS IN IT ) Blood Disorder Hx: Hyperlipidemia Coding Level of Care Code Est Patient Level 1 Diagnoses Current use of anticoagulant therapy Z79.01 Results AMB INR Fingerstick AMB INR Fingerstick 1.9 Last Edit by Yamilka Hernandez RN on 03/27/25 14:41 interface delay Assessment & Plan Assessment & Plan (1) Current use of anticoagulant therapy: Code(s): 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
--- OUTSIDE RECORDS SUMMARY | 2025-03-27 16:49 | XMS_ITS | Patient Health Record ---
Author Organization [facility] Address [address] [place] [address] Care Team Providers Care Inspector [employer]ings Name Role Phone Rohith Marin Primary Care Provider Katelin Farnsworth Unavailable [phone] Allergies Allergen (clinical drug ingredient) Drug/Non Drug [...] Problem Acquired hammer toe of right foot (3335653998154056 ) Other hammer toe(s) (acquired), right foot (M20.41) Active confirmed Problem Acquired hammer toe of left foot (2433621845906959 ) Other hammer toe(s) (acquired), left foot (M20.42) Active confirmed Problem Polyneuropathy due to diabetes mellitus type I (958087389) 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 confirmed Problem Acquired hallux valgus (72024038) Hallux valgus (acquired), right foot (M20.11) Active confirmed Problem Polyneuropathy due to type 2 diabetes mellitus (334866010) Type 2 diabetes mellitus with diabetic polyneuropathy (E11.42) Active confirmed Vital Signs Heart Rate 76 /min 11/04/2024 Blood pressure diastolic 92 mm Hg 11/04/2024 Height 6ft 1in in 03/10/2025 Blood pressure systolic 142 mm Hg 11/04/2024 Weight 240 lbs 03/10/2025 BMI 31.66 kg/m2 03/10/2025 Procedures Procedure Date Ordered Date Performed Result Body Sit e 60569-PHYCNST NAIL, 6 OR MORE 07/05/2024 N/A 44411-QTAZ SKIN LESIONS, OVER 4 07/05/2024 N/A 28520-CPEUWCR NAIL, 6 OR MORE 11/04/2024 N/A 28425-GWMA SKIN LESIONS, OVER 4 11/04/2024 N/A 95299-REIFJUQ NAIL, 6 OR MORE 03/10/2025 N/A 33406-QPUT SKIN LESIONS, OVER 4 03/10/2025 N/A Encounters Encounter Location Date Provider Diagnosis [address] [address] 07/05/2024 Katelin Shi Type 2 diabetes mellitus with diabetic polyneuropathy E11.42 and Tinea unguium B35.[address] [address] 11/04/2024 Katelin Shi Other hammer toe(s) (acquired), right foot M20.41 ; Other hammer toe(s) (acquired), left foot M20.42 ; Type 2 diabetes mellitus with diabetic polyneuropathy E11.42 and Tinea unguium B35.[address] [address] 03/10/2025 Katelin Shi Type 2 diabetes mellitus with diabetic polyneuropathy E11.42 and Tinea unguium B35.[address] [address] 11/25/2024 Katelin Shi [address] [address] 02/01/2025 Katelin Shi Assessments Encounter Date Diagnosis [...] X ray : Foot, right 3V 02/01/2021 23524-LXBSFSP NAIL, 6 OR MORE 07/05/2024 48143-QXQJSQN NAIL, 6 OR MORE 11/04/2024 93772-RTZMWNE NAIL, 6 OR MORE 03/10/2025 80230-KWTF SKIN LESIONS, OVER 4 03/10/20 25 17223-SJQZ SKIN LESIONS, OVER 4 11/05/19 25 99039-NDPR SKIN LESIONS, OVER 4 07/06/19 25 02564-JFIM SKIN LESIONS, OVER 4 07/06/19 22 63672-AGOI SKIN LESIONS, OVER 4 06/13/19 21 91662-FMUD SKIN LESIONS, OVER 4 09/12/19 21 77712-EHKN SKIN LESIONS, OVER 4 01/12/20 21 34407-XCMZPZZL OF HEMATOMA/FLUID 023 27854-RJUBHVMW OF HEMATOMA/FLUID 021 Next Appt Details Provider Name:Katelin nguyen, 08/11/2025 09:15:00 AM, [address] [facility], [facility] [address], [place], [address], Insurance Providers Payer Name Payer Address Payer Phone Subscriber Number Group Number Insured Name Patient Relationship to Insured Coverage Start Date Coverage End Date [employer] Medicare [id number] [address] [address] [place] [address] [id number] Yemi Díaz Self - patient is the insured Medical (General) History Medical History History ICD Code Broken bones Chicken pox Diabetes mellitus Gout High blood pressure Joint implants/screws Measles Mumps Surgical History Surgery Date(Month/Year) ankle surgery 04/30/2009 Carpal Tunnel 08/28/22 Hospitalization History Reason Date(Month/Year)
== END 2025-03-27 14:53 | disposition home or self-care (01) ==
LOC: HO.ACS 14:27
PROVIDERS: PCP Physician Assistant; Visit Provider Internal Medicine Medical Oncology
DX: Z79.01 Long term (current) use of anticoagulants (principal)

== ENCOUNTER → 2025-03-27 14:27 | Outpatient (BNVA) | payer MEDICARE, SELFPAY | PROVIDERS: PCP Physician Assistant; Visit Provider Internal Medicine Medical Oncology | DX: I48.91 Unspecified atrial fibrillation (principal); Z51.81 Encounter for therapeutic drug level monitoring; Z79.01 Long term (current) use of anticoagulants | CPT/HCPCS: 85610; 99211 ==

== ENCOUNTER 2025-03-29 11:38 | Outpatient (AMB) | payer MEDICARE, SELFPAY ==
--- OUTSIDE RECORDS SUMMARY | 2023-11-06 05:00 | XMS_ITS ---
Author Organization [facility] Address [address] [place] [address] Care Team Providers Care Proofing Machine Operator Name Role Phone Rohith Marin Primary Care Provider Unavailab Katelin Cramer Unavailable [phone] Benedict Lindsey Unavailable [phone] Encounters Encounter Location Date Provider Diagnosis [address] [address] 11/06/2023 Benedict Lindsey Plan Of Treatment Next Appt Details Provider Name:Katelni nguyen, 08/11/2025 09:15:00 AM, [address] [place] [address], [address], Progress Notes * Yemi DÍAZDOB: [birth year] (79 yo M)Acc No.[id number]:11/06/2023 Progress Note Patient: Yemi LEYVA Provider: Brayan Huffman DPM :1945 A ge:78 Y S ex:Male Date:11/06/2023 Address:[address] [place] [address] Pcp:Rohith Marin Subjective: * Chief Complaints: * [...] 0 11/06/2023 Generated for René bradley/Sanya/Selma on: 01:20 PM EST
--- OUTSIDE RECORDS SUMMARY | 2024-05-13 04:15 | XMS_ITS ---
Author Organization [facility] Address [address] [place] [address] Care Team Providers Care Economics Faculty Member Name Role Phone Rohith Marin Primary Care Provider Unavailab Katelin Cramer Unavailable [phone] Polanco Encounters Encounter Location Date Provider Diagnosis [facility] [address] [place] [address] 05/13/2024 Katelin Shi Plan Of Treatment Next Appt Details Provider Name:Katelin nguyen, 08/11/2025 09:15:00 AM, [address], [address], Progress Notes * Yemi DÍAZDOB: [birth year] (79 yo M)Acc No.[id number]:05/13/2024 Progress Note Patient: Yemi LEYVA Provider: Lyn Shi DPM :1945 A ge:78 Y S ex:Male Date:05/13/2024 Address:[address] [place], [place] [address] Pcp:Rohith Marin Subjective: * Chief Complaints: * [address] Polanco. * Medical History: Objective: * Vitals: Assessment: Plan: * Treatment: * Images: * The named appointment provid er may or may not be the originator of this progress note, and it is not deemed complete until electronically signed by the appointment provider. Sign off status: Pending * Provider: Lyn Shi DPM Date: 0 05/13/2024 Generated for René bradley/Sanya/Selma on: 01:19 PM EST
--- OUTSIDE RECORDS SUMMARY | 2024-05-20 05:00 | XMS_ITS ---
Author Organization [facility] Address [address] [place] [address] Care Team Providers Care Roustabout Crew Name Role Phone Rohith Marin Primary Care Provider UnavailKatelin Leonard [phone] Encounters Encounter Location Date Provider Diagnosis [address] [address] 05/20/2024 Katelin Shi Plan Of Treatment Next Appt Details Provider Name:Katelin nguyen, 08/11/2025 09:15:00 AM, [facility] [address] [place] [address], [address], Progress Notes * Yemi DÍAZDOB: [birth year] (79 yo M)Acc No.[id number]:05/20/2024 Progress Note Patient: Yemi LEYVA Provider: Lyn Shi DPM :1945 A ge:78 Y S ex:Male Date:05/20/2024 Address:[address] [place] [address] Pcp:Rohith Marin Subjective: * Chief Complaints: * [...] 05/20/2024 Generated for René bradley/Sanya/Selma on: 1 01:20 PM EST
--- OUTSIDE RECORDS SUMMARY | 2024-08-09 10:30 | XMS_ITS ---
Author Organization [facility] Address [address] [place] [address] Care Team Providers Care Ct Scan Technician Name Role Phone Rohith Marin Primary Care Provider Unavailab Katelin Cramer [phone] Encounters Encounter Location Date Provider Diagnosis [address] [address] 08/09/2024 Katelin Shi Plan Of Treatment Next Appt Details Provider Name:Katelin nguyen, 08/11/2025 09:15:00 AM, [address], [address], Progress Notes * Yemi DÍAZDOB: [birth year] (79 yo M)Acc No.[id number]:08/09/2024 Progress Note Patient: Yemi LEYVA Provider: Lyn Shi DPM :1945 A ge:79 Y S ex:Male Date:08/09/2024 Address:[address] [place] [phone] Pcp:Rohith Marin Subjective: * Chief Complaints: * [...] 08/09/2024 Generated for René bradley/Sanya/Selma on: 1 01:20 PM EST
--- OUTSIDE RECORDS SUMMARY | 2025-02-03 03:30 | XMS_ITS ---
Author Organization [facility] Address [address] [place] [address] Care Team Providers Care Concrete Tile Machine Operator Name Role Phone Rohith Marin Primary Care Provider UnavailKatelin Leonard [phone] Encounters Encounter Location Date Provider Diagnosis [address] [address] 02/03/2025 Katelin Shi Plan Of Treatment Next Appt Details Provider Name:Katelin nguyen, 08/11/2025 09:15:00 AM, [address], [address], Progress Notes * Yemi DÍAZDOB: [birth year] (79 yo M)Acc No.[id number]:02/03/2025 Progress Note Patient: Yemi LEYVA Provider: Lyn Shi DPM :1945 A ge:79 Y S ex:Male Date:02/03/2025 Address:[address] [place] [address] Pcp:Rohith Marin Subjective: * Chief Complaints: * [...] Date: 04/05/2024 Generated for René bradley/Sanya/Selma on: 01:20 PM EST
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
[2025-03-29 11:46] VITALS: BP 138/78; PULSE 81; TEMP 36.3; O2SAT 98; BMI 30.4
--- OUTSIDE RECORDS SUMMARY | 2025-03-29 13:20 | XMS_ITS | Patient Health Record ---
Author Organization [facility] Address [address] [place] [address] Care Team Providers Care State Epidemiologist Name Role Phone Rohith Marin Primary Care Provider Katelin Farnsworth Unavailable [phone] Allergies Allergen (clinical drug ingredient) Drug/Non Drug [...] Problem Acquired hammer toe of right foot (4017190876662653 ) Other hammer toe(s) (acquired), right foot (M20.41) Active confirmed Problem Acquired hammer toe of left foot (0420658670612266 ) Other hammer toe(s) (acquired), left foot (M20.42) Active confirmed Problem Polyneuropathy due to diabetes mellitus type I (220440427) 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 confirmed Problem Acquired hallux valgus (63882097) Hallux valgus (acquired), right foot (M20.11) Active confirmed Problem Polyneuropathy due to type 2 diabetes mellitus (408753498) Type 2 diabetes mellitus with diabetic polyneuropathy (E11.42) Active confirmed Vital Signs Heart Rate 76 /min 11/04/2024 Blood pressure diastolic 92 mm Hg 11/04/2024 Height 6ft 1in in 03/10/2025 Blood pressure systolic 142 mm Hg 11/04/2024 Weight 240 lbs 03/10/2025 BMI 31.66 kg/m2 03/10/2025 Procedures Procedure Date Ordered Date Performed Result Body Sit e 87841-CGGXASG NAIL, 6 OR MORE 07/05/2024 N/A 05856-PWNP SKIN LESIONS, OVER 4 07/05/2024 N/A 95384-OQUPQOA NAIL, 6 OR MORE 11/04/2024 N/A 50473-RLAA SKIN LESIONS, OVER 4 11/04/2024 N/A 04783-RZHNTHF NAIL, 6 OR MORE 03/10/2025 N/A 32799-PRKY SKIN LESIONS, OVER 4 03/10/2025 N/A Encounters Encounter Location Date Provider Diagnosis [address] [address] 07/05/2024 Katelin Shi Type 2 diabetes mellitus with diabetic polyneuropathy E11.42 and Tinea unguium B35.[address] [address] 11/04/2024 Katelin Shi Other hammer toe(s) (acquired), right foot M20.41 ; Other hammer toe(s) (acquired), left foot M20.42 ; Type 2 diabetes mellitus with diabetic polyneuropathy E11.42 and Tinea unguium B35.[address] [address] 03/10/2025 Katelin Shi Type 2 diabetes mellitus with diabetic polyneuropathy E11.42 and Tinea unguium B35.[address] [address] 11/25/2024 Katelin Shi [address] [address] 02/01/2025 Katelin Shi Assessments Encounter Date Diagnosis [...] X ray : Foot, right 3V 02/01/2021 07581-VTORZDJ NAIL, 6 OR MORE 07/05/2024 59131-NAEXYTB NAIL, 6 OR MORE 11/04/2024 10964-QKCAVZL NAIL, 6 OR MORE 03/10/2025 24449-FMPW SKIN LESIONS, OVER 4 03/10/20 25 02000-VFPJ SKIN LESIONS, OVER 4 11/05/19 25 34997-KMIQ SKIN LESIONS, OVER 4 07/06/19 25 49783-WVXV SKIN LESIONS, OVER 4 07/06/19 22 46208-BEKW SKIN LESIONS, OVER 4 06/13/19 21 53234-TPXN SKIN LESIONS, OVER 4 09/12/19 21 88583-VHEE SKIN LESIONS, OVER 4 01/12/20 21 13260-ODHAUWET OF HEMATOMA/FLUID 023 29198-DSMTCGYS OF HEMATOMA/FLUID 021 Next Appt Details Provider Name:Katelin nguyen, 08/11/2025 09:15:00 AM, [address] [facility], [facility] [address], [place], [address], Insurance Providers Payer Name Payer Address Payer Phone Subscriber Number Group Number Insured Name Patient Relationship to Insured Coverage Start Date Coverage End Date [employer] Medicare [id number] [address] [address] [place] [address] [id number] Yemi Díaz Self - patient is the insured Medical (General) History Medical History History ICD Code Broken bones Chicken pox Diabetes mellitus Gout High blood pressure Joint implants/screws Measles Mumps Surgical History Surgery Date(Month/Year) ankle surgery 04/30/2009 Carpal Tunnel 08/28/22 Hospitalization History Reason Date(Month/Year)
== END 2025-03-29 12:25 | disposition home or self-care (01) ==
LOC: HO.HMCH 11:39
PROVIDERS: PCP Physician Assistant; Visit Provider Physician Assistant
DX: I48.19 Other persistent atrial fibrillation (principal); I10 Essential (primary) hypertension; E11.9 Type 2 diabetes mellitus without complications; Z13.9 Encounter for screening, unspecified

== ENCOUNTER → 2025-03-29 11:38 | Outpatient (BNVA) | payer MEDICARE, SELFPAY | PROVIDERS: PCP Physician Assistant; Visit Provider Physician Assistant | DX: I48.19 Other persistent atrial fibrillation (principal); I10 Essential (primary) hypertension; E11.9 Type 2 diabetes mellitus without complications; E78.2 Mixed hyperlipidemia; Z79.01 Long term (current) use of anticoagulants; Z12.5 Encounter for screening for malignant neoplasm of prostate; Z13.39 Encounter for screening examination for other mental health and behavioral disorders | CPT/HCPCS: 83036; 96127; 99212 ==